=== PATIENT | female | born 1965 | race Caucasian/White ===

== ENCOUNTER 2017-12-17 14:07 | Emergency (ER) | payer OTHER ==
--- NOTE | 2017-12-17 14:36 | ERPHSYRPT ---
- History of Present Illness Time Seen by Provider: 12/17/17 14:30 Source: patient Exam Limitations: no limitations Patient Subjective Stated Complaint: pt here for headache for 2 days just progressively worse and states that her BS was low and work and her b/p was high.has taken excedrin for this Triage Nursing Assessment: pt arrived per wc crying holding head, alert, resp easy, skin w/d/p. no edema Physician History: The patient is a 52-year-old female with her complaining of a worsening headache for 2 days. Today she says it feels like "the top of my head is going to blow off". She states it is the atomic bomb of headaches. She denies numbness or tingling. Light bothers her. She is nauseated. She has occasional migraine headaches but has not had one in many years. She takes Excedrin Migraine. She does not take any other medications. She hasn't had anything to eat today except for an ice cream cone. No head trauma. Timing/Duration: day(s) (2), gradual onset, worse Quality: pressure, sharpness Head Pain Location: global Severity of Pain-Max: severe Severity of Pain-Current: severe Recent Head Trauma: occasional headaches Associated Symptoms: nausea/vomiting, sensitive to light Previous symptoms: same symptoms as today Allergies/Adverse Reactions: Sulfa (Sulfonamide Antibiotics) Allergy (Intermediate, Verified 12/17/17 14:14) Hives triamcinolone acetonide [From Kenalog] Allergy (Intermediate, Verified 12/17/17 14:14) Hives Home Medications: No Reportable Medications [No Reported Medications] 12/17/17 [History] Hx Tetanus, Diphtheria Vaccination/Date Given: No Hx Influenza Vaccination/Date Given: No Hx Pneumococcal Vaccination/Date Given: No Immunizations Up to Date: Yes - Review of Systems Constitutional: No Fever, No Chills Eyes: Photophobia Ears, Nose, & Throat: No Symptoms Respiratory: No Cough, No Dyspnea Cardiac: No Chest Pain, No Edema, No Syncope Abdominal/Gastrointestinal: Nausea Genitourinary Symptoms: No Dysuria Musculoskeletal: No Back Pain, No Neck Pain Skin: No Rash Neurological: Headache, No Focal Weakness, No Paralysis, No Parasthesia, No Sensory Changes, No Speech Changes Psychological: No Symptoms Endocrine: No Symptoms Hematologic/Lymphatic: No Symptoms Immunological/Allergic: No Symptoms All Other Systems: Reviewed and Negative - Past Medical History Pertinent Past Medical History: Yes Neurological History: Migraines ENT History: No Pertinent History Cardiac History: No Pertinent History Respiratory History: Asthma Endocrine Medical History: No Pertinent History Musculoskeletal History: No Pertinent History GI Medical History: GERD History: No Pertinent History Psycho-Social History: Anxiety, Depression Female Reproductive Disorders: No Pertinent History Other Medical History: chronic back pain - Past Surgical History Past Surgical History: Yes Neuro Surgical History: No Pertinent History Cardiac: No Pertinent History Respiratory: No Pertinent History Gastrointestinal: No Pertinent History Genitourinary: No Pertinent History Musculoskeletal: No Pertinent History Female Surgical History: Tubal Ligation Other Surgical History: tonsillectomy, adenoidectomy - Social History Smoking Status: Current every day smoker How long have you smoked: 15yrs Exposure to second hand smoke: Yes Drug Use: none Patient Lives Alone: No Significant Family History: no pertinent family hx - Female History Hx Last Menstrual Period: post Hx Now: No - Nursing Vital Signs Nursing Vital Signs: Initial Vital Signs Temperature 98.2 F 12/17/17 14:16 Pulse Rate 110 H 12/17/17 14:16 Respiratory Rate 20 12/17/17 14:16 Blood Pressure 186/147 12/17/17 14:16 O2 Sat by Pulse Oximetry 98 12/17/17 14:16 Pain Scale Pain Intensity 6 - Physical Exam General Appearance: severe distress Eye Exam: PERRL/EOMI, photophobia Ears, Nose, Throat Exam: normal ENT inspection, moist mucous membranes Neck Exam: normal inspection, supple, full range of motion, No meningismus Respiratory Exam: normal breath sounds, lungs clear Cardiovascular Exam: regular rate/rhythm, normal heart sounds Gastrointestinal/Abdominal Exam: soft, No tenderness, No distention Back Exam: normal inspection, normal range of motion Extremity Exam: normal inspection Mental Status Exam: alert, 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, 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 Exam: normal hearing, normal speech, PERRL, tongue midline, No abnormal speech, No facial asymmetry, No facial droop, No facial paresthesias, No facial weakness, No tongue deviation to R, No tongue deviation to L Motor/Sensory Exam: no motor deficit, no sensory deficit Skin Exam: normal color, warm, dry, No rash SpO2 Interpretation: normal SpO2: 98 Oxygen Delivery: Room Air - CT Exams Head CT Interpretation: Tele-radiologist Report (per Dr Castellano), No/Intracranial Hemorrhag, Other (Chiari I malformation) Ordered Tests: Active Orders 24 hr Category Date Time Status ACCUCHECK [Accucheck] STAT Care 12/17/17 14:27 Active Clean Catch Urine Specimen STAT Care 12/17/17 14:15 Active IV Insertion STAT Care 12/17/17 14:27 Active HEAD WITHOUT CONTRAST [CT] Stat Exams 12/17/17 14:42 Taken Medication Summary Discontinued Medications Generic Name Dose Route Start Last Admin Trade Name Lesli PRN Reason Stop Dose Admin Sodium Chloride 1,000 mls @ 999 mls/hr 12/17/17 14:42 12/17/17 14:50 Sodium Chloride 0.9% 1000 Ml IV 12/17/17 15:42 999 mls/hr .Q1H1M STA Administration Sodium Chloride Confirm 12/17/17 14:45 Sodium Chloride 0.9% 1000 Ml Administered 12/17/17 14:46 Dose 1,000 mls @ ud .ROUTE .STK-MED ONE Ketorolac Tromethamine 30 mg 12/17/17 14:41 12/17/17 14:50 Toradol 30 Mg Injection IV 12/17/17 14:42 30 mg STAT ONE Administration Ketorolac Tromethamine Confirm 12/17/17 14:45 Toradol 30 Mg Injection Administered 12/17/17 14:46 Dose 30 mg .ROUTE .STK-MED ONE Promethazine HCl 25 mg 12/17/17 14:41 12/17/17 14:50 Phenergan 25 Mg Inj IV 12/17/17 14:42 25 mg STAT ONE Administration Promethazine HCl Confirm 12/17/17 14:45 Phenergan 25 Mg Inj Administered 12/17/17 14:46 Dose 25 mg .ROUTE .STK-MED ONE - Progress Progress: improved Progress Note: 12/17/17 16:01 PLt feels better after toradol 30 mg and phenergan 25 mg and fluids by IV. Counseled pt/family regarding: diagnosis, need for follow-up, rad results - Departure Time of Disposition: 16:08 Departure Disposition: Home Clinical Impression: Headache, Chiari I malformation Condition: Stable Critical Care Time: No Additional Instructions: You have a headache that we treated with Toradol 30 mg, Phenergan 25 mg, and fluids by IV in the ER. You also have a Chiari I malformation that is was identified on the head CT. This is a condition you've had since you was born. You should have this further evaluated. Please follow-up with your primary medical doctor for further evaluation.
[2017-12-17] MEDS ORDERED: TORAdol 30 mg Injection IV ONE (14:41)
[2017-12-17] MEDS ORDERED: Phenergan 25 MG INJ IV ONE (14:41)
[2017-12-17] MEDS ORDERED: Sodium Chloride 0.9% 1000 ML 1,000 ML IV STA (14:42)
[2017-12-17] MEDS ORDERED: Sodium Chloride 0.9% 1000 ML 1,000 ML ONE (14:45)
[2017-12-17] MEDS ORDERED: Phenergan 25 MG INJ ONE (14:45)
[2017-12-17] MEDS ORDERED: TORAdol 30 mg Injection ONE (14:45)
[2017-12-17 15:13] VITALS: PULSE 84
[2017-12-17 15:39] VITALS: BP 125/80
[2017-12-17 16:09] VITALS: O2SAT 98
--- NOTE | 2017-12-17 19:42 | XRAY ---
Indication: Headache. History of migraines. Multiple contiguous axial images obtained through the head without contrast. Comparison: None Ventriculosulcal pattern appears symmetric. No acute intracranial hemorrhage, abnormal extra-axial fluid collection, or mass effect. Fourth ventricle is midline without hydrocephalus. Garcia-white matter differentiation preserved. Low-lying cerebellar tonsils. Near complete opacification of the left maxillary sinus. Mastoid air cells are clear. Impression: Left maxillary sinus disease and low-lying cerebellar tonsils. No acute intracranial abnormalities. Comment: Preliminary interpretation was made by [facility]. No critical discrepancy. CTDI 69.52
== END 2017-12-17 16:18 | disposition home or self-care (01) ==
LOC: ED 14:07
DX: R51 Headache (principal); R11.2 Nausea with vomiting, unspecified; G93.5 Compression of brain
CPT/HCPCS: 36000; 70450; 82962; 96360; 96374; 96375; 99284; J1885; J2550

== ENCOUNTER 2018-10-07 21:05 | Emergency (ER) | payer OTHER ==
[2018-10-07 21:22] VITALS: O2SAT 98
[2018-10-07] MEDS ORDERED: Sodium Chloride 0.9% 1000 ML 1,000 ML IV STA (22:12)
[2018-10-07] MEDS ORDERED: TORAdol 30 mg Injection IV ONE (22:12)
[2018-10-07] MEDS ORDERED: Phenergan 25 MG INJ IM ONE (22:12)
[2018-10-07] MEDS ORDERED: TORAdol 30 mg Injection ONE (22:27)
[2018-10-07] MEDS ORDERED: Phenergan 25 MG INJ ONE (22:27)
[2018-10-07] MEDS ORDERED: Sodium Chloride 0.9% 1000 ML 1,000 ML ONE (22:27)
--- NOTE | 2018-10-07 22:42 | ERPHSYRPT ---
- History of Present Illness Time Seen by Provider: 10/07/18 22:13 Source: patient Exam Limitations: no limitations Patient Subjective Stated Complaint: pt reports headache with nausea for 2 days , states it got better today and she was able to work but the pain has returned tonight and became severe. pt reports history of migraine but reports she does not take any daily prophylatic migraine medications. Triage Nursing Assessment: pt is aox3, pupils perrl, speech is clear, answers questions appropriately, resps easy and non labored, radial pulses strong and equal, cap refill < 3 seconds, no edema appreciated. pain localized to the right occipital region with radiation to the right frontal area. pt noted to be sensitive to light at this time. Physician History: 53-year-old white female with history of migraines, asthma, anxiety, depression , chronic back pain. Patient arrives with complaint of frontal headache nausea, photophobia symptoms for 2 days she denies any fevers. Past medical history includes migraines, asthma, anxiety, depression, chronic back pain. Past surgical history includes tubal ligation, tonsillectomy adenoidectomy Timing/Duration: day(s) (2 days) Severity: moderate Modifying Factors: Improves With: nothing. Worsens With: other Associated Symptoms: nausea, headaches, No vomiting, No abdominal pain, No shortness of breath, No heartburn, No diaphoresis, No cough, No chills, No chest pain, No fever, No loss of appetite, No malaise, No rash, No syncope, No seizure, No weakness Allergies/Adverse Reactions: Sulfa (Sulfonamide Antibiotics) Allergy (Intermediate, Verified 10/07/18 21:22) Hives triamcinolone acetonide [From Kenalog] Allergy (Intermediate, Verified 10/07/18 21:22) Hives Home Medications: Hydrocodone/Acetaminophen [Hydrocodone-Acetamin 10-325 mg] 1 each PO BID [History] Hx Tetanus, Diphtheria Vaccination/Date Given: (unk) Hx Influenza Vaccination/Date Given: No Hx Pneumococcal Vaccination/Date Given: No Immunizations Up to Date: Yes - Review of Systems Constitutional: No Fever, No Chills Eyes: Photophobia, No Discharge, No Eye Pain, No Eye Redness, No Itchy, No Tearing, No Vision Changes, No Double Vision, No Foreign Body Sensation Ears, Nose, & Throat: No Symptoms Respiratory: No Cough, No Dyspnea Cardiac: No Chest Pain, No Edema, No Syncope Abdominal/Gastrointestinal: Nausea, No Abdominal Pain, No Vomiting, No Diarrhea Genitourinary Symptoms: No Dysuria Musculoskeletal: No Back Pain, No Neck Pain Skin: No Rash Neurological: Headache, No Dizziness, No Focal Weakness, No Gait Changes, No Irritability, No Lethargy, No Paralysis, No Parasthesia, No Seizure, No Sensory Changes, No Speech Changes, No Tics, No Tremors, No Vertigo Psychological: No Symptoms Endocrine: No Symptoms All Other Systems: Reviewed and Negative - Past Medical History Pertinent Past Medical History: Yes Neurological History: Migraines ENT History: No Pertinent History Cardiac History: No Pertinent History Respiratory History: Asthma Endocrine Medical History: No Pertinent History Musculoskeletal History: No Pertinent History GI Medical History: GERD History: No Pertinent History Psycho-Social History: Anxiety, Depression Female Reproductive Disorders: No Pertinent History Other Medical History: chronic back pain - Past Surgical History Past Surgical History: Yes Neuro Surgical History: No Pertinent History Cardiac: No Pertinent History Respiratory: No Pertinent History Gastrointestinal: No Pertinent History Genitourinary: No Pertinent History Musculoskeletal: No Pertinent History Female Surgical History: Tubal Ligation Other Surgical History: tonsillectomy, adenoidectomy - Social History Smoking Status: Current every day smoker How long have you smoked: 15yrs Exposure to second hand smoke: Yes Drug Use: none Patient Lives Alone: No Significant Family History: no pertinent family hx - Female History Hx Now: No - Nursing Vital Signs Nursing Vital Signs: Initial Vital Signs Temperature 98.3 F 10/07/18 21:11 Pulse Rate 90 10/07/18 21:11 Respiratory Rate 20 10/07/18 21:11 Blood Pressure 159/101 10/07/18 21:11 O2 Sat by Pulse Oximetry 98 10/07/18 21:11 Pain Scale Pain Intensity 6 - Physical Exam General Appearance: mild distress, alert Eye Exam: PERRL/EOMI, eyes nml inspection Ears, Nose, Throat Exam: normal ENT inspection, TMs normal, pharynx normal, moist mucous membranes Neck Exam: normal inspection, non-tender, supple, full range of motion Respiratory Exam: normal breath sounds, lungs clear, No respiratory distress Cardiovascular Exam: regular rate/rhythm, normal heart sounds, normal peripheral pulses, capillary refill <2 sec Gastrointestinal/Abdomen Exam: soft, normal bowel sounds, No tenderness, No mass Back Exam: normal inspection, normal range of motion, No CVA tenderness, No vertebral tenderness Extremity Exam: normal inspection, normal range of motion, pelvis stable Neurologic Exam: alert, 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, cooperative, fur stylist II-XII nml as tested, normal mood/affect, nml cerebellar function, nml station & gait, sensation nml, No motor deficits Skin Exam: normal color, warm, dry, No rash SpO2 Interpretation: normal (98%) SpO2: 98 Ordered Tests: Active Orders 24 hr Category Date Time Status IV Insertion STAT Care 10/07/18 22:12 Active Medication Summary Discontinued Medications Generic Name Dose Route Start Last Admin Trade Name Freq PRN Reason Stop Dose Admin Sodium Chloride 1,000 mls @ 999 mls/hr 10/07/18 22:12 10/07/18 22:33 Sodium Chloride 0.9% 1000 Ml IV 10/07/18 23:12 999 mls/hr .Q1H1M STA Administration Sodium Chloride Confirm 10/07/18 22:27 Sodium Chloride 0.9% 1000 Ml Administered 10/07/18 22:28 Dose 1,000 mls @ ud .ROUTE .STK-MED ONE Ketorolac Tromethamine 30 mg 10/07/18 22:12 10/07/18 22:33 Toradol 30 Mg Injection IV 10/07/18 22:13 30 mg STAT ONE Administration Ketorolac Tromethamine Confirm 10/07/18 22:27 Toradol 30 Mg Injection Administered 10/07/18 22:28 Dose 30 mg .ROUTE .STK-MED ONE Morphine Sulfate Confirm 10/07/18 23:04 Morphine Sulfate 4 Mg Inj Administered 10/07/18 23:05 Dose 4 mg .ROUTE .STK-MED ONE Morphine Sulfate 4 mg 10/07/18 23:05 10/07/18 23:06 Morphine Sulfate 4 Mg Inj IV 10/07/18 23:06 4 mg STAT ONE Administration Promethazine HCl 25 mg 10/07/18 22:12 10/07/18 22:33 Phenergan 25 Mg Inj IM 10/07/18 22:13 25 mg STAT ONE Administration Promethazine HCl Confirm 10/07/18 22:27 Phenergan 25 Mg Inj Administered 10/07/18 22:28 Dose 25 mg .ROUTE .STK-MED ONE - Progress Progress: improved Progress Note: 10/07/18 23:00 Patient improved after Toradol, normal saline 1 L, Phenergan not completely pain -free. Will give patient 4 mg IV. Plan home. Rest dark quiet room. 10/07/18 23:35 Patient feeling markedly improved. - Departure Departure Disposition: Home Clinical Impression: Migraine headache Qualifiers: Migraine type: unspecified Status migrainosus presence: without status migrainosus Intractability: not intractable Qualified Code(s): G43.909 - Migraine, unspecified, not intractable, without status migrainosus Condition: Fair Critical Care Time: No Referrals: VIVI JOHNSON NP [Primary Care Provider] - Additional Instructions: Return home. Dark quiet room. Followup with your family DrBrianna if symptoms recurrent. Return for acute distress or for severe symptoms.
[2018-10-07] MEDS ORDERED: MORPHINE SULFATE 4 MG INJ ONE (23:04)
[2018-10-07] MEDS ORDERED: MORPHINE SULFATE 4 MG INJ IV ONE (23:05)
[2018-10-07 23:42] VITALS: BP 130/75; PULSE 83
== END 2018-10-07 23:43 | disposition home or self-care (01) ==
LOC: ED 21:05
DX: G43.909 Migraine, unspecified, not intractable, without status migrainosus (principal)
CPT/HCPCS: 36000; 96360; 96372; 96374; 96375; 99284; J1885; J2270; J2550

== ENCOUNTER 2018-11-19 12:44 | Emergency (ER) | payer OTHER ==
--- NOTE | 2018-11-19 13:28 | ERPHSYRPT ---
- History of Present Illness Time Seen by Provider: 11/19/18 13:15 Exam Limitations: no limitations Patient Subjective Stated Complaint: states has chronic back pain and last night was playing with granddaughter and she fell onto patient's back. now having increased pain with movement. took pain med this am but states is not helping. Triage Nursing Assessment: ambulated to room holding lower back. tenderness to back. states pain goes down both legs. cervantes without difficulty. Physician History: Patient described to me concerns for a migraine flare-up that began on the left side this morning prior to coming into the emergency department on 11/19/2018. Patient told nursing she has pain in her lower back. Timing/Duration: today Quality: throbbing Head Pain Location: frontal, temporal Severity of Pain-Max: severe Severity of Pain-Current: severe Recent Head Trauma: frequent headaches, chronic headaches Modifying Factors: Improves With: exposure to light (worsens), noise (worsens). Worsens With: immobilization, medication, movement Associated Symptoms: other (low back pain after bending and lifting her grandchild and her grandchild falling on her back on 11/18/2018), No confusion, No dizziness, No fatigue, No facial pain, No fever/chills, No flushing, No light -headedness, No loss of consciousness, No nausea/vomiting, No nasal congestion, No nasal drainage, No neck pain, No numbness in legs/feet, No rash, No sweating , No scotoma, No seizures, No sinus infection, No sensitive to light, No speech problems, No stiff neck, No trouble walking, No vision changes, No visual disturbance, No weakness Previous symptoms: same symptoms as today, no recent treatment (no history of epidural injections) Allergies/Adverse Reactions: Sulfa (Sulfonamide Antibiotics) Allergy (Intermediate, Verified 11/19/18 13:09) Hives triamcinolone acetonide [From Kenalog] Allergy (Intermediate, Verified 11/19/18 13:09) Hives Home Medications: Hydrocodone/Acetaminophen [Hydrocodone-Acetamin 10-325 mg] 1 each PO BID [History] Hx Tetanus, Diphtheria Vaccination/Date Given: No (unk) Hx Influenza Vaccination/Date Given: No Hx Pneumococcal Vaccination/Date Given: No - Review of Systems Constitutional: No Fever, No Chills, No Lethargy Eyes: Photophobia, No Eye Pain, No Vision Changes, No Double Vision Ears, Nose, & Throat: No Nose Congestion, No Nose Discharge, No Epistaxis, No Mouth Swelling, No Throat Swelling, No Hoarse Respiratory: No Cough, No Dyspnea Cardiac: No Chest Pain, No Edema, No Syncope Abdominal/Gastrointestinal: No Abdominal Pain, No Nausea, No Vomiting, No Diarrhea Genitourinary Symptoms: No Dysuria, No Hematuria, No Flank Pain Musculoskeletal: Back Pain, No Neck Pain Skin: No Rash Neurological: Headache, No Dizziness, No Focal Weakness, No Parasthesia, No Sensory Changes (bilateral radicular symptoms down both legs), No Tremors Psychological: No Symptoms Endocrine: No Polyuria, No Polydipsia Hematologic/Lymphatic: No Easy Bleeding, No Easy Bruising All Other Systems: Reviewed and Negative - Past Medical History Pertinent Past Medical History: Yes Neurological History: Migraines ENT History: No Pertinent History Cardiac History: No Pertinent History Respiratory History: Asthma Endocrine Medical History: No Pertinent History Musculoskeletal History: No Pertinent History GI Medical History: GERD History: No Pertinent History Psycho-Social History: Anxiety, Depression Female Reproductive Disorders: No Pertinent History Other Medical History: chronic back pain - Past Surgical History Past Surgical History: Yes Neuro Surgical History: No Pertinent History Cardiac: No Pertinent History Respiratory: No Pertinent History Gastrointestinal: No Pertinent History Genitourinary: No Pertinent History Musculoskeletal: No Pertinent History Female Surgical History: Tubal Ligation Other Surgical History: tonsillectomy, adenoidectomy - Social History Smoking Status: Current every day smoker How long have you smoked: 36 Exposure to second hand smoke: Yes Drug Use: none Patient Lives Alone: No Significant Family History: no pertinent family hx - Female History Hx Now: No - Nursing Vital Signs Nursing Vital Signs: Initial Vital Signs Temperature 98.6 F 11/19/18 13:01 Pulse Rate 109 H 11/19/18 13:01 Respiratory Rate 16 11/19/18 13:01 Blood Pressure 137/103 11/19/18 13:01 O2 Sat by Pulse Oximetry 97 11/19/18 13:01 Pain Scale Pain Intensity [] 9 Pain Intensity 5 - Physical Exam General Appearance: no apparent distress Eye Exam: PERRL/EOMI, eyes nml inspection, photophobia, No scleral icterus, No post op pupil defect (L), No post op pupil defect (R) Ears, Nose, Throat Exam: normal ENT inspection, moist mucous membranes Neck Exam: normal inspection, supple, full range of motion, No meningismus Respiratory Exam: normal breath sounds, lungs clear Cardiovascular Exam: regular rate/rhythm, normal heart sounds Gastrointestinal/Abdominal Exam: soft, No tenderness, No distention Back Exam: normal inspection, normal range of motion, No CVA tenderness, No vertebral tenderness, No muscle spasm, No point tenderness Extremity Exam: normal inspection, normal range of motion, pelvis stable Mental Status Exam: alert, 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, 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 Exam: normal speech, PERRL, tongue midline, No abnormal eye position, No facial asymmetry, No facial droop, No facial paresthesias, No tongue deviation to L Coordination/Gait Exam: normal cerebellar function Motor/Sensory Exam: no motor deficit, no sensory deficit, No sensory deficit, No weak motor strength RUE, No weak motor strength LUE, No weak motor strength RLE, No weak motor strength LLE Skin Exam: normal color, warm, dry, No rash, No jaundice, No cyanosis Lymphatic Exam: No adenopathy SpO2 Interpretation: normal SpO2: 97 O2 Delivery: Room Air - Course Nursing assessment & vital signs reviewed: Yes - CT Exams Lumbar Spine CT Interpretation: Tele-radiologist Report, No Fracture, Other (per radiologist' s interpretation:l anatomic. This and plate of L3 similar to prior MD study has a concave appearance, which is indicative of unchanged compression deformities. No addition, the L4 biconcave the past, which has been stable since prior examination. In addition, there are subtle sclerotic diffuse changes in the inferior aspect L4 vertebral body. Small in moderate hospital seen L3-L5. There is evidence of moderate to severe narrowing of the right side of all 4 L5 disc, unchanged since prior examination from 08/16/2018. Similar to the prior study there is unchanged left paracentral protrusion, associated with hypertrophy of the ligamentum problem at delta L3 level, resulting in moderate to severe central spinal stenosis. Persistent moderate stenosis seen at the L3-L4 level. The bones are demineralized. atherosclerotic calcifications are present distal aspect of the abdominal aorta. Soft tissues are unremarkable. Overall impression: No acute findings. Persistent mild compression deformity of L3. Persistent mild to moderate compression deformity of L4. Osteopenia. Degenerative disc and spinal disease with persistent moderate to severe central spinal stenosis seen at L2-L3 level which is better paragraph prior lumbar spine MRI from 08/25/2018. Aortic atherosclerotic disease.) Ordered Tests: Active Orders 24 hr Category Date Time Status IV Insertion STAT Care 11/19/18 13:32 Active LUMBAR SPINE W/O [CT] Stat Exams 11/19/18 14:21 Taken Medication Summary Discontinued Medications Generic Name Dose Route Start Last Admin Trade Name Lesli PRN Reason Stop Dose Admin Acetaminophen 975 mg 11/19/18 13:32 11/19/18 15:00 Tylenol 325 Mg PO 11/19/18 13:33 975 mg STAT ONE Administration Acetaminophen Confirm 11/19/18 14:38 Tylenol 325 Mg Administered 11/19/18 14:39 Dose 975 mg .ROUTE .STK-MED ONE Diphenhydramine HCl 50 mg 11/19/18 13:32 11/19/18 15:00 Benadryl 50 Mg/Ml IV 11/19/18 13:33 50 mg STAT ONE Administration Diphenhydramine HCl Confirm 11/19/18 14:37 Benadryl 50 Mg/Ml Administered 11/19/18 14:38 Dose 50 mg .ROUTE .STK-MED ONE Fentanyl Citrate 50 mcg 11/19/18 13:31 11/19/18 14:56 Sublimaze 100 Mcg/2 Ml IV 11/19/18 13:32 50 mcg STAT ONE Administration Fentanyl Citrate Confirm 11/19/18 14:38 Sublimaze 100 Mcg/2 Ml Administered 11/19/18 14:39 Dose 100 mcg .ROUTE .STK-MED ONE Sodium Chloride 1,000 mls @ 999 mls/hr 11/19/18 13:32 11/19/18 14:55 Sodium Chloride 0.9% 1000 Ml IV 11/19/18 14:32 999 mls/hr .Q1H1M STA Administration Sodium Chloride Confirm 11/19/18 14:38 Sodium Chloride 0.9% 1000 Ml Administered 11/19/18 14:39 Dose 1,000 mls @ ud .ROUTE .STK-MED ONE Methylprednisolone Sodium Succinate 125 mg 11/19/18 13:29 11/19/18 15:04 Solu-Medrol 125 Mg IV 11/19/18 13:30 125 mg STAT ONE Administration Methylprednisolone Sodium Succinate Confirm 11/19/18 14:38 Solu-Medrol 125 Mg Administered 11/19/18 14:39 Dose 125 mg .ROUTE .STK-MED ONE Metoclopramide HCl 10 mg 11/19/18 13:29 11/19/18 14:55 Reglan 10 Mg/2 Ml IV 11/19/18 13:30 10 mg STAT ONE Administration Metoclopramide HCl Confirm 11/19/18 14:38 Reglan 10 Mg/2 Ml Administered 11/19/18 14:39 Dose 10 mg .ROUTE .STK-MED ONE Ondansetron HCl 4 mg 11/19/18 13:32 11/19/18 14:59 Zofran 4 Mg/2 Ml Vial IV 11/19/18 13:33 4 mg STAT ONE Administration Ondansetron HCl Confirm 11/19/18 14:37 Zofran 4 Mg/2 Ml Vial Administered 11/19/18 14:38 Dose 4 mg .ROUTE .STK-MED ONE - Progress Progress: improved, re-examined Air Movement: good Progress Note: 11/19/18 15:46 Yoselyn Espinoza RN chaperoned examination. Patient had normal sphincter tone and anal wink on examination. Patient's headache has resolved and back pain has improved. Patient has no focal neurologic deficits on repeat examination and is neurovascularly intact in the lower extremities bilaterally with no deficits appreciated. 11/19/18 15:52 The patient had no focal neurologic deficits with a normal sphincter tone, although complaining of bilateral radicular symptoms, and with an unchanged CT scan from previous MRI showing that she had moderate spinal stenosis but no obvious cord compression, patient will be discharged home to follow up as an outpatient to continue taking her home [place] and I will give her a course of a Medrol Dosepak to help with her pain and symptoms. Blood Culture(s) Obtained: No Antibiotics given: No Counseled pt/family regarding: diagnosis, need for follow-up, rad results - Departure Departure Disposition: Home Clinical Impression: Acute exacerbation of chronic low back pain, Lumbar radicular pain Headache Qualifiers: Headache type: unspecified Headache chronicity pattern: acute headache Intractability: not intractable Qualified Code(s): R51 - Headache Lumbar spinal stenosis Qualifiers: Neurogenic claudication status: without neurogenic claudication Qualified Code( s): M48.061 - Spinal stenosis, lumbar region without neurogenic claudication Condition: Good Critical Care Time: No Referrals: VIVI JOHNSON [employer] TUTOR [Primary Care Provider] - 11/20/18 Instructions: Low Back Pain (DC), Sciatica (DC), Headache, Adult (DC) Additional Instructions: Return immediately back to the emergency room for any new fevers, numbness upon the area he said upon, weakness in the lower extremities, loss of sensation of lower extremities, urinary retention, diarrhea you cannot control, or continued bilateral leg symptoms at any time or any other signs or symptoms that were not present in the emergency room visit today that are concerning for immediate reevaluation in the emergency department. Prescriptions: Methylprednisolone Packet [Medrol Dosepack] 4 mg PO UD #1 packet
[2018-11-19] MEDS ORDERED: Reglan 10 MG/2 ML IV ONE (13:29)
[2018-11-19] MEDS ORDERED: solu-MEDROL 125 MG IV ONE (13:29)
[2018-11-19] MEDS ORDERED: SUBLIMAZE 100 MCG/2 ML IV ONE (13:31)
[2018-11-19] MEDS ORDERED: BENADRYL 50 MG/ML IV ONE (13:32)
[2018-11-19] MEDS ORDERED: Sodium Chloride 0.9% 1000 ML 1,000 ML IV STA (13:32)
[2018-11-19] MEDS ORDERED: Zofran 4 MG/2 ML VIAL IV ONE (13:32)
[2018-11-19] MEDS ORDERED: TYLENOL 325 MG PO ONE (13:32)
[2018-11-19] MEDS ORDERED: Zofran 4 MG/2 ML VIAL ONE (14:37)
[2018-11-19] MEDS ORDERED: BENADRYL 50 MG/ML ONE (14:37)
[2018-11-19] MEDS ORDERED: solu-MEDROL 125 MG ONE (14:38)
[2018-11-19] MEDS ORDERED: SUBLIMAZE 100 MCG/2 ML ONE (14:38)
[2018-11-19] MEDS ORDERED: TYLENOL 325 MG ONE (14:38)
[2018-11-19] MEDS ORDERED: Reglan 10 MG/2 ML ONE (14:38)
[2018-11-19] MEDS ORDERED: Sodium Chloride 0.9% 1000 ML 1,000 ML ONE (14:38)
[2018-11-19 16:08] VITALS: BP 124/74; PULSE 82; O2SAT 100
--- NOTE | 2018-11-19 20:53 | XRAY ---
Indication: Low back pain radiating down both legs. Multiple contiguous axial images obtained through the lumbar spine. Two-dimensional sagittal and coronal reformatted images obtained. Comparison: MRI lumbar spine August 25, 2018. Axial images demonstrate stable L2-L3 spinal canal and bilateral foraminal stenosis due to broad-based disc bulge and central disc herniation. Stable L3-L5 broad-based disc bulge and bilateral foraminal stenosis. Stable L3 and L4 endplate concave deformities including MRI proven L4 inferior endplate fracture. No acute fracture or suspicious bony lesions. Sagittal and coronal reformatted images demonstrates normal lumbar alignment with minimal L2-L5 disc space narrowing. No acute compression fracture or subluxation. Visualized noncontrasted soft tissues demonstrates mild aortoiliac calcifications. Impression: Stable multilevel degenerative disc disease and stable L3/L4 endplate concave deformities. No new or acute findings. Comment: Preliminary interpretation was made by [facility]. No critical discrepancy. CTDI 66.86
== END 2018-11-19 16:10 | disposition home or self-care (01) ==
LOC: ED 12:44
DX: M54.5 Low back pain (principal); G89.29 Other chronic pain; M48.061 Spinal stenosis, lumbar region without neurogenic claudication; R51 Headache
CPT/HCPCS: 36000; 72131; 96360; 96374; 96375; 99284; J1200; J2405; J2930; J3010; A9270-GY

== ENCOUNTER 2018-12-15 03:51 | Emergency (ER) | payer OTHER ==
--- NOTE | 2018-12-15 03:56 | ERPHSYRPT ---
- History of Present Illness Time Seen by Provider: 12/15/18 03:55 Source: patient Exam Limitations: no limitations Physician History: cough with sputum and shortness of breath since yesterday. Also his lumbar sore throat. And mild chest pain. Timing/Duration: yesterday Activities at Onset: rest Severity of Dyspnea-Max: moderate Severity of Dyspnea-Current: moderate Possible Cause: occasional episodes Modifying Factors: Improves With: albuterol inhaler, coughing, deep breath Associated Symptoms: intermittent, chest pain/discomfort, fever, wheezing, No edema, No insomnia, No loss of appetite, No lightheadedness, No weakness, No ankle swelling, No chills, No hemoptysis, No calf pain, No dizziness, No heaviness, No heart racing, No lightheadedness, No leg swelling, No muscle spasms feet, No muscle spasms hands, No painful breathing International travel in last 2 weeks: No Allergies/Adverse Reactions: Sulfa (Sulfonamide Antibiotics) Allergy (Intermediate, Verified 11/19/18 13:09) Hives triamcinolone acetonide [From Kenalog] Allergy (Intermediate, Verified 11/19/18 13:09) Hives Home Medications: Hydrocodone/Acetaminophen [Hydrocodone-Acetamin 10-325 mg] 1 each PO BID [History] Hx Tetanus, Diphtheria Vaccination/Date Given: No (unk) Hx Influenza Vaccination/Date Given: No Hx Pneumococcal Vaccination/Date Given: No - Review of Systems Constitutional: No Fever, No Chills Eyes: No Symptoms Ears, Nose, & Throat: No Symptoms Respiratory: Wheezing, No Cough, No Dyspnea Cardiac: No Chest Pain, No Edema, No Syncope Abdominal/Gastrointestinal: No Abdominal Pain, No Nausea, No Vomiting, No Diarrhea Genitourinary Symptoms: No Dysuria Musculoskeletal: No Back Pain, No Neck Pain Skin: No Rash Neurological: No Dizziness, No Focal Weakness, No Sensory Changes Psychological: No Symptoms Endocrine: No Symptoms All Other Systems: Reviewed and Negative - Past Medical History Pertinent Past Medical History: Yes Neurological History: Migraines ENT History: No Pertinent History Cardiac History: No Pertinent History Respiratory History: Asthma Endocrine Medical History: No Pertinent History Musculoskeletal History: No Pertinent History GI Medical History: GERD History: No Pertinent History Psycho-Social History: Anxiety, Depression Female Reproductive Disorders: No Pertinent History Other Medical History: chronic back pain - Past Surgical History Past Surgical History: Yes Neuro Surgical History: No Pertinent History Cardiac: No Pertinent History Respiratory: No Pertinent History Gastrointestinal: No Pertinent History Genitourinary: No Pertinent History Musculoskeletal: No Pertinent History Female Surgical History: Tubal Ligation Other Surgical History: tonsillectomy, adenoidectomy - Social History Smoking Status: Current every day smoker How long have you smoked: 36 Exposure to second hand smoke: Yes Drug Use: none Patient Lives Alone: No Significant Family History: no pertinent family hx - Nursing Vital Signs Nursing Vital Signs: Initial Vital Signs Temperature 97.5 F 12/15/18 03:53 Pulse Rate 105 H 12/15/18 03:53 Respiratory Rate 22 12/15/18 03:53 Blood Pressure 139/95 12/15/18 03:53 O2 Sat by Pulse Oximetry 96 12/15/18 03:53 Pain Scale Pain Intensity 7 - Physical Exam General Appearance: no apparent distress, alert Eye Exam: PERRL/EOMI Neck Exam: normal inspection, non-tender, supple Respiratory Exam: normal breath sounds, lungs clear, airway intact, prolonged expirations, No chest tenderness, No diminished breath sounds Cardiovascular/Chest Exam: normal heart sounds, regular rate/rhythm, normal peripheral pulses, No edema, No JVD Abdominal/Gastrointestinal Exam: soft, No tenderness, No distention, No mass Extremity Exam: non-tender, normal range of motion, normal inspection, no calf tenderness, no pedal edema Neurologic Exam: alert, 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, 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, 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, sensation nml, No motor deficits Skin Exam: normal color, warm, No dry SpO2 Interpretation: normal O2 Delivery: Room Air - Course EKG Interpreted by Me: RATE, Sinus Rhythm, NORMAL AXIS, NORMAL INTERVALS, NORMAL QRS, Non-specific ST Changes - Radiology Exams Chest X-ray Interpretation: Reviewed by me, Negative Ordered Tests: Active Orders 24 hr Category Date Time Status Behavioral Health Care Coordinator STAT Care 12/15/18 04:01 Active EKG-ER Only STAT Care 12/15/18 04:00 Active IV Insertion STAT Care 12/15/18 04:00 Active Oxygen-ED Only Nasal Cannula 2 lpm Care 12/15/18 04:00 Active CHEST 1 VIEW (PORTABLE) Stat Exams 12/15/18 04:42 Taken BLOOD CULTURE Stat Lab 12/15/18 04:32 Received CBC W DIFF Stat Lab 12/15/18 04:04 Completed CMP Stat Lab 12/15/18 04:04 Completed D-DIMER QUANTITATION Stat Lab 12/15/18 04:04 Completed Lactic Acid Stat Lab 12/15/18 04:28 Completed NT PRO BNP Stat Lab 12/15/18 04:04 Completed TROPONIN Stat Lab 12/15/18 04:04 Completed Peak Expiratory Flow Rate ONCE RT 12/15/18 04:12 Active Respiratory Therapy Assessment DAILY RT 12/15/18 04:11 Active Medication Summary Discontinued Medications Generic Name Dose Route Start Last Admin Trade Name Freq PRN Reason Stop Dose Admin Albuterol/Ipratropium 3 ml 12/15/18 04:02 Duoneb 0.5-3 Mg/3 Ml Neb IH 12/15/18 04:03 STAT ONE Albuterol/Ipratropium Confirm 12/15/18 04:08 Duoneb 0.5-3 Mg/3 Ml Neb Administered 12/15/18 04:09 Dose 3 ml IH .STK-MED ONE Aspirin 324 mg 12/15/18 04:00 12/15/18 04:09 Baby Aspirin 81 Mg Chew PO 12/15/18 04:01 324 mg STAT ONE Administration Aspirin Confirm 12/15/18 04:45 Baby Aspirin 81 Mg Chew Administered 12/15/18 04:46 Dose 324 mg .ROUTE .STK-MED ONE Azithromycin 500 mg 12/15/18 04:03 12/15/18 04:12 Zithromax 250 Mg Tablet PO 12/15/18 04:04 500 mg STAT ONE Administration Azithromycin Confirm 12/15/18 04:11 Zithromax 250 Mg Tablet Administered 12/15/18 04:12 Dose 250 mg .ROUTE .STK-MED ONE Azithromycin Confirm 12/15/18 04:13 Zithromax 250 Mg Tablet Administered 12/15/18 04:14 Dose 250 mg .ROUTE .STK-MED ONE Ceftriaxone Sodium/Dextrose 1 g in 50 mls @ 100 mls/hr 12/15/18 04:02 04:12 Rocephin 1 Gm-D5w 50 Ml Bag IV 12/15/18 04:31 100 mls/hr STAT STA 100 mls/hr Administration Ceftriaxone Sodium/Dextrose Confirm 12/15/18 04:11 Rocephin 1 Gm-D5w 50 Ml Bag Administered 12/15/18 04:12 Dose 1 g in 50 mls @ ud IV .STK-MED ONE Lab/Rad Data: Laboratory Result Diagrams 12/15/18 04:04 12/15/18 04:04 Laboratory Results 12/15/18 12/15/18 12/15/18 Range/Units 04:32 04:28 04:04 WBC (4.0-10.5) K/mm3 RBC (4.1-5.4) M/mm3 Hgb (12.0-16.0) gm/dl Hct (35-47) % MCV (78-100) fl MCH (26-32) pg MCHC (32-36) g/dl RDW (11.5-14.0) % Plt Count (150-450) K/mm3 MPV (6-9.5) fl Gran % (36.0-66.0) % Eos # (Auto) (0-0.5) Absolute Lymphs (auto) (1.0-4.6) Absolute Monos (auto) (0.0-1.3) Lymphocytes % (24.0-44.0) % Monocytes % (0.0-12.0) % Eosinophils % (0.00-5.0) % Basophils % (0.0-0.4) % Absolute Granulocytes (1.4-6.9) Basophils # (0-0.4) D-Dimer < 215 L (215-500) ng/mL Sodium (137-145) mmol/L Potassium (3.5-5.1) mmol/L Chloride (98-107) mmol/L Carbon Dioxide (22-30) mmol/L Anion Gap (5-15) MEQ/L BUN (7-17) mg/dL Creatinine (0.52-1.04) mg/dL Estimated GFR ML/MIN Glucose (74-106) mg/dL Lactic Acid 1.3 (0.4-2.0) Calcium (8.4-10.2) mg/dL Total Bilirubin (0.2-1.3) mg/dL AST (14-36) U/L ALT (0-35) U/L Alkaline Phosphatase (38-126) U/L Troponin I (0.000-0.034) ng/mL NT-Pro-B Natriuret Pep (0-900) pg/mL Serum Total Protein (6.3-8.2) g/dL Albumin (3.5-5.0) g/dL Influenza Type A Ag NEGATIVE (NEGATIVE) Influenza Type B Ag NEGATIVE (NEGATIVE) RSV (PCR) NEGATIVE (Negative) Group A Strep Antibody NEGATIVE (NEGATIVE) 12/15/18 12/15/18 Range/Units 04:04 04:04 WBC 5.0 (4.0-10.5) K/mm3 RBC 4.01 L (4.1-5.4) M/mm3 Hgb 13.7 (12.0-16.0) gm/dl Hct 41.1 (35-47) % MCV 102.5 H (78-100) fl MCH 34.1 H (26-32) pg MCHC 33.3 (32-36) g/dl RDW 14.3 H (11.5-14.0) % Plt Count 162 (150-450) K/mm3 MPV 11.9 H (6-9.5) fl Gran % 60.6 (36.0-66.0) % Eos # (Auto) 0.28 (0-0.5) Absolute Lymphs (auto) 1.18 (1.0-4.6) Absolute Monos (auto) 0.48 (0.0-1.3) Lymphocytes % 23.8 L (24.0-44.0) % Monocytes % 9.7 (0.0-12.0) % Eosinophils % 5.7 H (0.00-5.0) % Basophils % 0.2 (0.0-0.4) % Absolute Granulocytes 3.00 (1.4-6.9) Basophils # 0.01 (0-0.4) D-Dimer (215-500) ng/mL Sodium 143 (137-145) mmol/L Potassium 3.5 (3.5-5.1) mmol/L Chloride 109 H (98-107) mmol/L Carbon Dioxide 25 (22-30) mmol/L Anion Gap 12.9 (5-15) MEQ/L BUN 8 (7-17) mg/dL Creatinine 0.48 L (0.52-1.04) mg/dL Estimated GFR > 60.0 ML/MIN Glucose 112 H (74-106) mg/dL Lactic Acid (0.4-2.0) Calcium 9.7 (8.4-10.2) mg/dL Total Bilirubin 0.70 (0.2-1.3) mg/dL AST 17 (14-36) U/L ALT 12 (0-35) U/L Alkaline Phosphatase 77 (38-126) U/L Troponin I < 0.012 (0.000-0.034) ng/mL NT-Pro-B Natriuret Pep 39.3 (0-900) pg/mL Serum Total Protein 7.0 (6.3-8.2) g/dL Albumin 4.1 (3.5-5.0) g/dL Influenza Type A Ag (NEGATIVE) Influenza Type B Ag (NEGATIVE) RSV (PCR) (Negative) Group A Strep Antibody (NEGATIVE) - Progress Progress: improved Air Movement: good Progress Note: 12/15/18 05:17 feels a lot better. No life or limb threatening condition on discharge. Heart score negative. Blood Culture(s) Obtained: Yes Antibiotics given: Yes Counseled pt/family regarding: lab results, diagnosis, need for follow-up, rad results, smoking cessation - Departure Departure Disposition: Home Clinical Impression: Acute bronchitis Qualifiers: Bronchitis organism: unspecified organism Qualified Code(s): J20.9 - Acute bronchitis, unspecified Condition: Good Critical Care Time: No Referrals: VIVI JOHNSON [employer]ER [Primary Care Provider] - Instructions: Asthma, Adult (DC), Chronic Obstructive Pulmonary Disease Prescriptions: Azithromycin 250 mg [Zithromax 250 MG TABLET] 250 mg PO ZPACK #6 tablet Prednisone 10 mg [Deltasone 10 mg] 10 mg PO DAILY 5 Days #5 tablet
[2018-12-15] MEDS ORDERED: BABY ASPIRIN 81 MG CHEW PO ONE (04:00)
[2018-12-15] MEDS ORDERED: DUONEB 0.5-3 MG/3 ml Neb IH ONE ×2 (04:02→04:08)
[2018-12-15] MEDS ORDERED: ROCEPHIN 1 Gm-D5w 50 ml Bag** 1 G/50 ML IVPB IV STA (04:02)
[2018-12-15] MEDS ORDERED: Zithromax 250 MG TABLET PO ONE (04:03)
[2018-12-15] MEDS ORDERED: ROCEPHIN 1 Gm-D5w 50 ml Bag** 1 G/50 ML IVPB IV ONE (04:11)
[2018-12-15] MEDS ORDERED: Zithromax 250 MG TABLET ONE ×2 (04:11→04:13)
[2018-12-15 04:20] LABS: BASOPHIL % 0.2 % (0.0-0.4); Basophil (Absolute #) 0.01 (0-0.4); Eosinophil % 5.7 % (0.00-5.0); Eosinophil (Absolute #) 0.28 (0-0.5); Hematocrit 41.1 % (35-47); Hemoglobin 13.7 gm/dl (12.0-16.0); Lymphocyte (Absolute #) 1.18 (1.0-4.6); Lymphocytes % 23.8 % (24.0-44.0); Mean Cell Volume 102.5 fl (78-100); Mean Corpuscular Hgb Concent. 33.3 g/dl (32-36); Mean Platelet Volume 11.9 fl (6-9.5); Monocyte (Absolute #) 0.48 (0.0-1.3); Monocytes % 9.7 % (0.0-12.0); Neutrophil % 60.6 % (36.0-66.0); Platelet Count 162 K/mm3 (150-450); Red Blood Count 4.01 M/mm3 (4.1-5.4); Red Cell Distribution Width 14.3 % (11.5-14.0)
[2018-12-15 04:21] LABS: Mean Corpuscular Hemoglobin 34.1 pg (26-32)
[2018-12-15 04:32] LABS: ALBUMIN 4.1 g/dL (3.5-5.0); ALKALINE PHOSPHATASE 77 U/L (38-126); ANION GAP 12.9 MEQ/L (5-15); BLOOD UREA NITROGEN 8 mg/dL (7-17); CHLORIDE 109 mmol/L (98-107); Calcium 9.7 mg/dL (8.4-10.2); Carbon Dioxide 25 mmol/L (22-30); Creatinine 1 0.48 mg/dL (0.52-1.04); Glucose 112 mg/dL (74-106); NT PRO BNP 39.3 pg/mL (0-900); Potassium 3.5 mmol/L (3.5-5.1); SGOT/AST 17 U/L (14-36); SGPT/ALT 12 U/L (0-35); SODIUM 143 mmol/L (137-145); TROPONIN < 0.012 ng/mL (0.000-0.034)
[2018-12-15] MEDS ORDERED: BABY ASPIRIN 81 MG CHEW ONE (04:45)
[2018-12-15 05:08] LABS: Group A Strep NEGATIVE (NEGATIVE)
[2018-12-15 05:09] VITALS: BP 123/90; PULSE 76
[2018-12-15 05:09] LABS: INFLUENZA A NEGATIVE (NEGATIVE); INFLUENZA B NEGATIVE (NEGATIVE); RESPIRATORY SYNCTIAL VIRUS NEGATIVE (Negative)
[2018-12-15] MEDS ORDERED: solu-MEDROL 125 MG IV ONE (05:15)
[2018-12-15 05:27] VITALS: O2SAT 98
--- NOTE | 2018-12-15 09:22 | XRAY ---
Indication: Cough, dyspnea, and fever. Comparison: September 28, 2012. Portable chest again demonstrates normal heart, lungs, and bony thorax.
== END 2018-12-15 05:42 | disposition home or self-care (01) ==
LOC: ED 03:51
DX: J20.9 Acute bronchitis, unspecified (principal); R07.9 Chest pain, unspecified; J45.909 Unspecified asthma, uncomplicated
CPT/HCPCS: 36000; 36415; 71045; 80053; 83605; 83880; 84484; 85025; 85379; 87040; 87631; 87651; 93005; 93041; 94150; 96365; 99284; 99291; 99292; J0696; A9270-GY

== ENCOUNTER 2019-02-19 16:20 | Emergency (ER) | payer MEDICAID, OTHER ==
[2019-02-19] MEDS ORDERED: PROVENTIL 2.5 MG/3 ML NEB IH ONE ×4 (16:34→18:52)
--- NOTE | 2019-02-19 16:34 | ERPHSYRPT ---
- History of Present Illness Time Seen by Provider: 02/19/19 16:34 Source: patient, family Exam Limitations: no limitations Physician History: 54 y/o white female smoker presents with worsening soa over last 2 days. pt has copd. pts albuterol neb tx not helping much. denies cp. no abd pain. pt denies cardiac hx but she does have a family h/o heart dz. no sig cough. no known fever. Timing/Duration: day(s) (2) Activities at Onset: none Severity of Dyspnea-Max: mild Severity of Dyspnea-Current: moderate Possible Cause: occasional episodes Modifying Factors: Improves With: albuterol nebulizer Associated Symptoms: denies symptoms, No chest pain/discomfort Allergies/Adverse Reactions: Sulfa (Sulfonamide Antibiotics) Allergy (Intermediate, Verified 02/19/19 16:25) Hives triamcinolone acetonide [From Kenalog] Allergy (Intermediate, Verified 02/19/19 16:25) Hives Home Medications: Hydrocodone/Acetaminophen [Hydrocodone-Acetamin 10-325 mg] 1 each PO BID [History] Hx Tetanus, Diphtheria Vaccination/Date Given: No (unk) Hx Influenza Vaccination/Date Given: No Hx Pneumococcal Vaccination/Date Given: No - Review of Systems Constitutional: No Symptoms Eyes: No Symptoms Ears, Nose, & Throat: No Symptoms Respiratory: Dyspnea Cardiac: No Symptoms, No Chest Pain, No Palpitations Abdominal/Gastrointestinal: No Symptoms, No Abdominal Pain, No Nausea, No Vomiting, No Diarrhea Genitourinary Symptoms: No Symptoms Musculoskeletal: No Symptoms Skin: No Symptoms Neurological: No Symptoms Psychological: No Symptoms Endocrine: No Symptoms Hematologic/Lymphatic: No Symptoms Immunological/Allergic: No Symptoms All Other Systems: Reviewed and Negative - Past Medical History Pertinent Past Medical History: Yes Neurological History: Migraines ENT History: No Pertinent History Cardiac History: No Pertinent History Respiratory History: Asthma Endocrine Medical History: No Pertinent History Musculoskeletal History: No Pertinent History GI Medical History: GERD History: No Pertinent History Psycho-Social History: Anxiety, Depression Female Reproductive Disorders: No Pertinent History Other Medical History: chronic back pain - Past Surgical History Past Surgical History: Yes Neuro Surgical History: No Pertinent History Cardiac: No Pertinent History Respiratory: No Pertinent History Gastrointestinal: No Pertinent History Genitourinary: No Pertinent History Musculoskeletal: No Pertinent History Female Surgical History: Tubal Ligation Other Surgical History: tonsillectomy, adenoidectomy - Social History Smoking Status: Current every day smoker How long have you smoked: 36 Exposure to second hand smoke: Yes Drug Use: none Patient Lives Alone: No Significant Family History: no pertinent family hx - Nursing Vital Signs Nursing Vital Signs: Initial Vital Signs Temperature 99.7 F 02/19/19 16:25 Pulse Rate 138 H 02/19/19 16:25 Respiratory Rate 28 H 02/19/19 16:25 Blood Pressure 141/84 02/19/19 16:25 O2 Sat by Pulse Oximetry 97 02/19/19 16:25 Pain Scale Pain Intensity 4 - Physical Exam General Appearance: mild distress, alert, anxiety Eye Exam: PERRL/EOMI, eyes nml inspection Ears, Nose, Throat Exam: hearing grossly normal, normal ENT inspection, normal pharynx Neck Exam: normal inspection, non-tender, supple, full range of motion Respiratory Exam: normal breath sounds, lungs clear, airway intact, No chest tenderness, No respiratory distress Cardiovascular/Chest Exam: tachycardia Abdominal/Gastrointestinal Exam: soft, normal bowel sounds, No tenderness Rectal Exam: not done Extremity Exam: non-tender, normal range of motion, normal inspection Neurologic Exam: alert, 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, 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, 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 Skin Exam: normal color, warm, dry Lymphatic Exam: No adenopathy SpO2 Interpretation: normal O2 Delivery: Room Air - Course Nursing assessment & vital signs reviewed: Yes EKG Interpreted by Me: RATE ([id number]), Sinus Rhythm, NORMAL INTERVALS, NORMAL QRS, Non-specific ST Changes (new), Other (when compared to ekg dated 12/15/18, persistent s1/s111 pattern [address] depression and n) Ordered Tests: Active Orders 24 hr Category Date Time Status Kinesiologist STAT Care 02/19/19 16:35 Active EKG-ER Only STAT Care 02/19/19 16:34 Active IV Insertion STAT Care 02/19/19 16:34 Active Pulse Oximetry (ED) STAT Care 02/19/19 16:34 Active CHEST 1 VIEW (PORTABLE) Stat Exams 02/19/19 16:35 Completed CBC W DIFF Stat Lab 02/19/19 16:44 Completed CMP Stat Lab 02/19/19 16:44 Completed D-DIMER QUANTITATION Stat Lab 02/19/19 18:49 Completed Lactic Acid Stat Lab 02/19/19 17:15 Completed Lactic Acid Stat Lab 02/19/19 19:17 Ordered NT PRO BNP Stat Lab 02/19/19 16:44 Completed TROPONIN Q3H Lab 02/19/19 16:44 Completed TROPONIN Q3H Lab 02/19/19 18:49 Completed TROPONIN Q3H Lab 02/19/19 22:45 Ordered TROPONIN Q3H Lab 02/20/19 01:45 Ordered TROPONIN Q3H Lab 02/20/19 04:45 Ordered UA W/RFX UR CULTURE Stat Lab 02/19/19 17:29 Completed Peak Expiratory Flow Rate ONCE RT 02/19/19 16:48 Active Respiratory Therapy Assessment DAILY RT 02/19/19 16:47 Active Medication Summary Generic Name Dose Route Start Last Admin Trade Name Freq PRN Reason Stop Dose Admin Sodium Chloride 1,000 mls @ 100 mls/hr 02/19/19 16:45 02/19/19 16:47 Sodium Chloride 0.9% 1000 Ml IV 03/21/19 16:44 100 mls/hr .Q10H DARVIN Administration Discontinued Medications Generic Name Dose Route Start Last Admin Trade Name Freq PRN Reason Stop Dose Admin Hydrocodone Bitart/Acetaminophen 10 ml 02/19/19 19:25 Hydrocodone-Acetamin 2.5-108/5 Ml Solution PO 02/19/19 19:26 STAT STA Albuterol Sulfate 2.5 mg 02/19/19 16:34 02/19/19 16:42 Proventil 2.5 Mg/3 Ml Neb IH 02/19/19 16:35 2.5 mg STAT ONE Administration Albuterol Sulfate Confirm 02/19/19 16:41 Proventil 2.5 Mg/3 Ml Neb Administered 02/19/19 16:42 Dose 2.5 mg IH .STK-MED ONE Albuterol Sulfate Confirm 02/19/19 18:50 Proventil 2.5 Mg/3 Ml Neb Administered 02/19/19 18:51 Dose 2.5 mg IH .STK-MED ONE Albuterol Sulfate 2.5 mg 02/19/19 18:52 02/19/19 18:53 Proventil 2.5 Mg/3 Ml Neb IH 02/19/19 18:53 2.5 mg STAT ONE Administration Sodium Chloride 1,000 mls @ 999 mls/hr 02/19/19 18:31 02/19/19 18:42 Sodium Chloride 0.9% 1000 Ml IV 02/19/19 19:31 999 mls/hr .Q1H1M STA Administration Lorazepam 1 mg 02/19/19 17:07 02/19/19 17:12 Ativan 2 Mg/1 Ml Vial IV 02/19/19 17:08 1 mg STAT ONE Administration Lorazepam Confirm 02/19/19 17:11 Ativan 2 Mg/1 Ml Vial Administered 02/19/19 17:12 Dose 2 mg .ROUTE .STK-MED ONE Methylprednisolone Sodium Succinate 125 mg 02/19/19 18:43 02/19/19 19:07 Solu-Medrol 125 Mg IV 02/19/19 18:44 125 mg STAT ONE Administration Methylprednisolone Sodium Succinate Confirm 02/19/19 19:05 Solu-Medrol 125 Mg Administered 02/19/19 19:06 Dose 125 mg .ROUTE .STK-MED ONE Potassium Chloride 10 meq 02/19/19 18:33 02/19/19 18:41 Klor Con 10 Meq PO 02/19/19 18:34 10 meq STAT ONE Administration Potassium Chloride Confirm 02/19/19 18:40 Klor Con 10 Meq Administered 02/19/19 18:41 Dose 10 meq PO .STK-MED ONE Lab/Rad Data: Laboratory Result Diagrams 02/19/19 16:44 02/19/19 16:44 Laboratory Results 02/19/19 02/19/19 02/19/19 Range/Units 18:49 18:49 17:29 WBC (4.0-10.5) K/mm3 RBC (4.1-5.4) M/mm3 Hgb (12.0-16.0) gm/dl Hct (35-47) % MCV (78-100) fl MCH (26-32) pg MCHC (32-36) g/dl RDW (11.5-14.0) % Plt Count (150-450) K/mm3 MPV (6-9.5) fl Gran % (36.0-66.0) % Eos # (Auto) (0-0.5) Absolute Lymphs (auto) (1.0-4.6) Absolute Monos (auto) (0.0-1.3) Lymphocytes % (24.0-44.0) % Monocytes % (0.0-12.0) % Eosinophils % (0.00-5.0) % Basophils % (0.0-0.4) % Absolute Granulocytes (1.4-6.9) Basophils # (0-0.4) D-Dimer 234 (215-500) ng/mL Sodium (137-145) mmol/L Potassium (3.5-5.1) mmol/L Chloride (98-107) mmol/L Carbon Dioxide (22-30) mmol/L Anion Gap (5-15) MEQ/L BUN (7-17) mg/dL Creatinine (0.52-1.04) mg/dL Estimated GFR ML/MIN Glucose (74-106) mg/dL Lactic Acid (0.4-2.0) Calcium (8.4-10.2) mg/dL Total Bilirubin (0.2-1.3) mg/dL AST (14-36) U/L ALT (0-35) U/L Alkaline Phosphatase (38-126) U/L Troponin I < 0.012 (0.000-0.034) ng/mL NT-Pro-B Natriuret Pep (0-900) pg/mL Serum Total Protein (6.3-8.2) g/dL Albumin (3.5-5.0) g/dL Urine Color STRAW (YELLOW) Urine Appearance CLEAR (CLEAR) Urine pH 7.0 (5-6) Ur Specific [place] 1.002 (1.005-1.025) Urine Protein NEGATIVE (Negative) Urine Ketones NEGATIVE (NEGATIVE) Urine Blood SMALL (0-5) Van/ul Urine Nitrite NEGATIVE (NEGATIVE) Urine Bilirubin NEGATIVE (NEGATIVE) Urine Urobilinogen NEGATIVE (0-1) mg/dL Ur Leukocyte Esterase NEGATIVE (NEGATIVE) Urine WBC (Auto) 3-5 (0-5) /HPF Urine RBC (Auto) 0-2 (0-2) /HPF U Epithel Cells (Auto) RARE (FEW) /HPF Urine Bacteria (Auto) RARE (NEGATIVE) /HPF Unidentified Crystals 2-5 (NEGATIVE) /HPF Urine Mucus (Auto) SLIGHT (NEGATIVE) /HPF Urine Culture Reflexed NO (NO) Urine Glucose NEGATIVE (NEGATIVE) mg/dL 12/16/19 12/16/19 12/16/19 Range/Units 17:15 16:44 16:44 WBC (4.0-10.5) K/mm3 RBC (4.1-5.4) M/mm3 Hgb (12.0-16.0) gm/dl Hct (35-47) % MCV (78-100) fl MCH (26-32) pg MCHC (32-36) g/dl RDW (11.5-14.0) % Plt Count (150-450) K/mm3 MPV (6-9.5) fl Gran % (36.0-66.0) % Eos # (Auto) (0-0.5) Absolute Lymphs (auto) (1.0-4.6) Absolute Monos (auto) (0.0-1.3) Lymphocytes % (24.0-44.0) % Monocytes % (0.0-12.0) % Eosinophils % (0.00-5.0) % Basophils % (0.0-0.4) % Absolute Granulocytes (1.4-6.9) Basophils # (0-0.4) D-Dimer (215-500) ng/mL Sodium 144 (137-145) mmol/L Potassium 3.3 L (3.5-5.1) mmol/L Chloride 111 H (98-107) mmol/L Carbon Dioxide 23 (22-30) mmol/L Anion Gap 13.3 (5-15) MEQ/L BUN 8 (7-17) mg/dL Creatinine 0.56 (0.52-1.04) mg/dL Estimated GFR > 60.0 ML/MIN Glucose 131 H (74-106) mg/dL Lactic Acid 3.2 H (0.4-2.0) Calcium 9.8 (8.4-10.2) mg/dL Total Bilirubin 0.60 (0.2-1.3) mg/dL AST 25 (14-36) U/L ALT 15 (0-35) U/L Alkaline Phosphatase 78 (38-126) U/L Troponin I < 0.012 (0.000-0.034) ng/mL NT-Pro-B Natriuret Pep 55.8 (0-900) pg/mL Serum Total Protein 7.5 (6.3-8.2) g/dL Albumin 4.4 (3.5-5.0) g/dL Urine Color (YELLOW) Urine Appearance (CLEAR) Urine pH (5-6) Ur Specific [place] (1.005-1.025) Urine Protein (Negative) Urine Ketones (NEGATIVE) Urine Blood (0-5) Van/ul Urine Nitrite (NEGATIVE) Urine Bilirubin (NEGATIVE) Urine Urobilinogen (0-1) mg/dL Ur Leukocyte Esterase (NEGATIVE) Urine WBC (Auto) (0-5) /HPF Urine RBC (Auto) (0-2) /HPF U Epithel Cells (Auto) (FEW) /HPF Urine Bacteria (Auto) (NEGATIVE) /HPF Unidentified Crystals (NEGATIVE) /HPF Urine Mucus (Auto) (NEGATIVE) /HPF Urine Culture Reflexed (NO) Urine Glucose (NEGATIVE) mg/dL 02/19/19 Range/Units 16:44 WBC 8.1 (4.0-10.5) K/mm3 RBC 4.51 (4.1-5.4) M/mm3 Hgb 14.9 (12.0-16.0) gm/dl Hct 44.7 (35-47) % MCV 99.1 (78-100) fl MCH 33.0 H (26-32) pg MCHC 33.3 (32-36) g/dl RDW 13.5 (11.5-14.0) % Plt Count 182 (150-450) K/mm3 MPV 11.9 H (6-9.5) fl Gran % 72.0 H (36.0-66.0) % Eos # (Auto) 0.31 (0-0.5) Absolute Lymphs (auto) 1.44 (1.0-4.6) Absolute Monos (auto) 0.50 (0.0-1.3) Lymphocytes % 17.8 L (24.0-44.0) % Monocytes % 6.2 (0.0-12.0) % Eosinophils % 3.8 (0.00-5.0) % Basophils % 0.2 (0.0-0.4) % Absolute Granulocytes 5.84 (1.4-6.9) Basophils # 0.02 (0-0.4) D-Dimer (215-500) ng/mL Sodium (137-145) mmol/L Potassium (3.5-5.1) mmol/L Chloride (98-107) mmol/L Carbon Dioxide (22-30) mmol/L Anion Gap (5-15) MEQ/L BUN (7-17) mg/dL Creatinine (0.52-1.04) mg/dL Estimated GFR ML/MIN Glucose (74-106) mg/dL Lactic Acid (0.4-2.0) Calcium (8.4-10.2) mg/dL Total Bilirubin (0.2-1.3) mg/dL AST (14-36) U/L ALT (0-35) U/L Alkaline Phosphatase (38-126) U/L Troponin I (0.000-0.034) ng/mL NT-Pro-B Natriuret Pep (0-900) pg/mL Serum Total Protein (6.3-8.2) g/dL Albumin (3.5-5.0) g/dL Urine Color (YELLOW) Urine Appearance (CLEAR) Urine pH (5-6) Ur Specific [place] (1.005-1.025) Urine Protein (Negative) Urine Ketones (NEGATIVE) Urine Blood (0-5) Van/ul Urine Nitrite (NEGATIVE) Urine Bilirubin (NEGATIVE) Urine Urobilinogen (0-1) mg/dL Ur Leukocyte Esterase (NEGATIVE) Urine WBC (Auto) (0-5) /HPF Urine RBC (Auto) (0-2) /HPF U Epithel Cells (Auto) (FEW) /HPF Urine Bacteria (Auto) (NEGATIVE) /HPF Unidentified Crystals (NEGATIVE) /HPF Urine Mucus (Auto) (NEGATIVE) /HPF Urine Culture Reflexed (NO) Urine Glucose (NEGATIVE) mg/dL - Progress Progress: improved Air Movement: good Progress Note: 02/19/19 18:45 cxr-no acute process. pt states she can have steroids just not triamcinolone. Counseled pt/family regarding: lab results, diagnosis, need for follow-up, rad results - Departure Departure Disposition: Home Clinical Impression: COPD exacerbation, Bronchitis Condition: Stable Critical Care Time: No Referrals: VIVI JOHNSON NP [Primary Care Provider] - Instructions: Chronic Obstructive Pulmonary Disease Additional Instructions: drink plenty of fluids. do not use your hydrocodone tablets while taking cough medicine liquids. use your albuterol inhalers and albuterol nebulizers as prescribed. follow up with primary doctor for further management. avoid exposure to any smoke Prescriptions: Hydrocodone/Chlorphen Polis [Tussionex Pennkinetic Susp] 10 ml PO Q12H PRN PRN # 60 ml PRN Reason: Cough Prednisone 10 mg [Deltasone 10 mg] 10 mg PO TID #12 tablet
[2019-02-19] MEDS ORDERED: Sodium Chloride 0.9% 1000 ML 1,000 ML IV SCH (16:45)
[2019-02-19] MEDS ORDERED: Sodium Chloride 0.9% 1000 ML 1,000 ML ONE ×2 (16:46→18:40)
[2019-02-19 16:48] LABS: Absolute Neutrophil Ct (ANC) 5.84 (1.4-6.9); BASOPHIL % 0.2 % (0.0-0.4); Basophil (Absolute #) 0.02 (0-0.4); Eosinophil % 3.8 % (0.00-5.0); Eosinophil (Absolute #) 0.31 (0-0.5); Hematocrit 44.7 % (35-47); Hemoglobin 14.9 gm/dl (12.0-16.0); Lymphocyte (Absolute #) 1.44 (1.0-4.6); Lymphocytes % 17.8 % (24.0-44.0); Mean Cell Volume 99.1 fl (78-100); Mean Corpuscular Hgb Concent. 33.3 g/dl (32-36); Mean Platelet Volume 11.9 fl (6-9.5); Monocytes % 6.2 % (0.0-12.0); Platelet Count 182 K/mm3 (150-450); Red Blood Count 4.51 M/mm3 (4.1-5.4); Red Cell Distribution Width 13.5 % (11.5-14.0); White Blood Count 8.1 K/mm3 (4.0-10.5)
[2019-02-19] MEDS ORDERED: Ativan 2 MG/1 ML VIAL IV ONE (17:07)
[2019-02-19 17:11] LABS: ALBUMIN 4.4 g/dL (3.5-5.0); ALKALINE PHOSPHATASE 78 U/L (38-126); ANION GAP 13.3 MEQ/L (5-15); BLOOD UREA NITROGEN 8 mg/dL (7-17); CHLORIDE 111 mmol/L (98-107); Calcium 9.8 mg/dL (8.4-10.2); Carbon Dioxide 23 mmol/L (22-30); Creatinine 1 0.56 mg/dL (0.52-1.04); Glucose 131 mg/dL (74-106); NT PRO BNP 55.8 pg/mL (0-900); Potassium 3.3 mmol/L (3.5-5.1); SGOT/AST 25 U/L (14-36); SGPT/ALT 15 U/L (0-35); SODIUM 144 mmol/L (137-145); Total Protein 7.5 g/dL (6.3-8.2)
[2019-02-19] MEDS ORDERED: Ativan 2 MG/1 ML VIAL ONE (17:11)
[2019-02-19 17:17] LABS: Lactic Acid 3.2 (0.4-2.0)
--- NOTE | 2019-02-19 17:23 | XRAY ---
Indication: Short of breath. Comparison: January 23, 2019. Portable chest remains clear. Heart is not enlarged. Bony thorax intact. No new/acute abnormalities. Impression: Nonacute chest.
[2019-02-19 17:44] LABS: Appearance CLEAR (CLEAR); Bacteria RARE /HPF (NEGATIVE); Bilirubin NEGATIVE (NEGATIVE); Blood SMALL Ery/ul (0-5); Epithelial Cells RARE /HPF (FEW); Glucose NEGATIVE (NEGATIVE); Ketones NEGATIVE (NEGATIVE); Leukocyte Esterase NEGATIVE (NEGATIVE); Mucus SLIGHT /HPF (NEGATIVE); Nitrite NEGATIVE (NEGATIVE); Protein,Urine Dip NEGATIVE (Negative); RBC 0-2 /HPF (0-2); Specific Gravity 1.002 (1.005-1.025); Urobilinogen NEGATIVE mg/dL (0-1)
[2019-02-19] MEDS ORDERED: Sodium Chloride 0.9% 1000 ML 1,000 ML IV STA (18:31)
[2019-02-19] MEDS ORDERED: Klor Con 10 MEQ PO ONE ×2 (18:33→18:40)
[2019-02-19] MEDS ORDERED: solu-MEDROL 125 MG IV ONE (18:43)
[2019-02-19] MEDS ORDERED: solu-MEDROL 125 MG ONE (19:05)
[2019-02-19] MEDS ORDERED: HYDROCODONE-ACETAMIN 2.5-108/5 ML SOLUTION PO STA (19:25)
[2019-02-19] MEDS ORDERED: HYDROCODONE-ACETAMIN 2.5-108/5 ML SOLUTION ONE (19:43)
[2019-02-19 19:57] VITALS: BP 119/71; PULSE 106; O2SAT 96
== END 2019-02-19 19:50 | disposition home or self-care (01) ==
LOC: ED 16:20
DX: J44.1 Chronic obstructive pulmonary disease with (acute) exacerbation (principal); J40 Bronchitis, not specified as acute or chronic; Z79.891 Long term (current) use of opiate analgesic
CPT/HCPCS: 36000; 36415; 71045; 80053; 81001; 83605; 83880; 84484; 85025; 85379; 93005; 93041; 94150; 94640; 94760; 96360; 96361; 96374; 96375; 99284; J2060; J2930; J7609; A9270-GY

== ENCOUNTER 2019-03-16 10:01 | Emergency (ER) | payer SELFPAY ==
[2019-03-16] MEDS ORDERED: DUONEB 0.5-3 MG/3 ml Neb IH ONE (10:04)
[2019-03-16] MEDS ORDERED: solu-MEDROL 125 MG IV ONE ×2 (10:18→11:59)
--- NOTE | 2019-03-16 10:18 | ERPHSYRPT ---
- History of Present Illness Time Seen by Provider: 03/16/19 10:10 Source: patient Exam Limitations: clinical condition Physician History: 54 y/o smoker white female with copd presents with severe soa and coughing. no cp. sudden onset last pm and worsening. pt states she can have iv steroids and oral prednisone just no injectable triamcinolone. pt has h/o copd. she did give herself a nebulizer tx this am but not that helpful. pt has h/o copd, recurrent bronchitis, asthma, and anxiety. Timing/Duration: yesterday Severity of Dyspnea-Max: moderate Severity of Dyspnea-Current: moderate Possible Cause: occasional episodes Modifying Factors: Improves With: albuterol inhaler, albuterol nebulizer, coughing Associated Symptoms: anxiety, cough, wheezing, No chest pain/discomfort Allergies/Adverse Reactions: Sulfa (Sulfonamide Antibiotics) Allergy (Intermediate, Verified 03/16/19 10:14) Hives triamcinolone acetonide [From Kenalog] Allergy (Intermediate, Verified 03/16/19 10:14) Hives Home Medications: Albuterol Sulfate [Ventolin Hfa] 8 gm IH QIDPRN PRN 03/16/19 [History] Hx Tetanus, Diphtheria Vaccination/Date Given: No (unk) Hx Influenza Vaccination/Date Given: No Hx Pneumococcal Vaccination/Date Given: No - Review of Systems Constitutional: No Symptoms Eyes: No Symptoms Ears, Nose, & Throat: No Symptoms Respiratory: Cough, Dyspnea Cardiac: No Symptoms Abdominal/Gastrointestinal: No Symptoms Genitourinary Symptoms: No Symptoms Musculoskeletal: No Symptoms Skin: No Symptoms Neurological: No Symptoms Psychological: No Symptoms Endocrine: No Symptoms Hematologic/Lymphatic: No Symptoms Immunological/Allergic: No Symptoms All Other Systems: Reviewed and Negative - Past Medical History Pertinent Past Medical History: Yes Neurological History: Migraines ENT History: No Pertinent History Cardiac History: No Pertinent History Respiratory History: Asthma Endocrine Medical History: No Pertinent History Musculoskeletal History: No Pertinent History GI Medical History: GERD History: No Pertinent History Psycho-Social History: Anxiety, Depression Female Reproductive Disorders: No Pertinent History Other Medical History: chronic back pain - Past Surgical History Past Surgical History: Yes Neuro Surgical History: No Pertinent History Cardiac: No Pertinent History Respiratory: No Pertinent History Gastrointestinal: No Pertinent History Genitourinary: No Pertinent History Musculoskeletal: No Pertinent History Female Surgical History: Tubal Ligation Other Surgical History: tonsillectomy, adenoidectomy - Social History Smoking Status: Current every day smoker How long have you smoked: 36 Exposure to second hand smoke: Yes Drug Use: none Patient Lives Alone: No Significant Family History: no pertinent family hx - Nursing Vital Signs Nursing Vital Signs: Initial Vital Signs Temperature 99 F 03/16/19 10:03 Pulse Rate 129 H 03/16/19 10:03 Respiratory Rate 32 H 03/16/19 10:03 Blood Pressure 138/98 03/16/19 10:03 O2 Sat by Pulse Oximetry 93 L 03/16/19 10:03 Pain Scale Pain Intensity 0 - Physical Exam General Appearance: moderate distress, alert, anxiety Eye Exam: PERRL/EOMI, eyes nml inspection Ears, Nose, Throat Exam: hearing grossly normal Neck Exam: normal inspection, non-tender, supple, full range of motion Respiratory Exam: respiratory distress, airway intact, rhonchi, wheezing, No chest tenderness, No stridor Cardiovascular/Chest Exam: tachycardia Abdominal/Gastrointestinal Exam: soft, normal bowel sounds, No tenderness Rectal Exam: not done Extremity Exam: non-tender, normal range of motion, normal inspection Neurologic Exam: alert, 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, 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, 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, nml cerebellar function, nml station & gait, sensation nml Skin Exam: normal color, warm, dry Lymphatic Exam: No adenopathy SpO2 Interpretation: borderline oxygenation O2 Delivery: Room Air - Course Nursing assessment & vital signs reviewed: Yes EKG Interpreted by Me: RATE ([id number]), Sinus Rhythm, Sinus Tach, NORMAL AXIS, NORMAL QRS, Other (no change from comparison ekg dated 02/19/19) Ordered Tests: Active Orders 24 hr Category Date Time Status Trip Follower STAT Care 03/16/19 10:18 Active EKG-ER Only STAT Care 03/16/19 10:18 Active IV Insertion STAT Care 03/16/19 10:18 Active Pulse Oximetry (ED) STAT Care 03/16/19 10:18 Active CHEST 1 VIEW (PORTABLE) Stat Exams 03/16/19 10:18 Completed ARTERIAL BLOOD GASES Stat Lab 03/16/19 10:18 Completed BLOOD CULTURE Stat Lab 03/16/19 10:50 Received CBC W DIFF Stat Lab 03/16/19 10:50 Completed CMP Stat Lab 03/16/19 10:50 Completed D-DIMER QUANTITATIVE Stat Lab 03/16/19 10:50 Completed Lactic Acid Stat Lab 03/16/19 10:18 Completed NT PRO BNP Stat Lab 03/16/19 10:50 Completed TROPONIN Q3H Lab 03/16/19 10:30 Completed TROPONIN Q3H Lab 03/16/19 13:30 Ordered TROPONIN Q3H Lab 03/16/19 16:30 Ordered TROPONIN Q3H Lab 03/16/19 19:30 Ordered TROPONIN Q3H Lab 03/16/19 22:30 Ordered Respiratory Therapy Assessment ONCE RT 03/16/19 10:26 Active Medication Summary Discontinued Medications Generic Name Dose Route Start Last Admin Trade Name Freq PRN Reason Stop Dose Admin Albuterol/Ipratropium Confirm 03/16/19 10:04 Duoneb 0.5-3 Mg/3 Ml Neb Administered 03/16/19 10:05 Dose 3 ml IH .STK-MED ONE Methylprednisolone Sodium Succinate 125 mg 03/16/19 10:18 03/16/19 10:29 Solu-Medrol 125 Mg IV 03/16/19 10:19 125 mg STAT ONE Administration Methylprednisolone Sodium Succinate Confirm 03/16/19 10:26 Solu-Medrol 125 Mg Administered 03/16/19 10:27 Dose 125 mg .ROUTE .STK-MED ONE Methylprednisolone Sodium Succinate 80 mg 03/16/19 11:59 03/16/19 12:04 Solu-Medrol 125 Mg IV 03/16/19 12:00 80 mg STAT ONE Administration Methylprednisolone Sodium Succinate Confirm 03/16/19 12:03 Solu-Medrol 125 Mg Administered 03/16/19 12:04 Dose 125 mg .ROUTE .STK-MED ONE Lab/Rad Data: Laboratory Result Diagrams 03/16/19 10:50 03/16/19 10:50 Laboratory Results 03/16/19 03/16/19 03/16/19 Range/Units 10:50 10:50 10:50 WBC 7.7 (4.0-10.5) K/mm3 RBC 4.76 (4.1-5.4) M/mm3 Hgb 16.0 (12.0-16.0) gm/dl Hct 47.5 H (35-47) % MCV 99.8 (78-100) fl MCH 33.6 H (26-32) pg MCHC 33.7 (32-36) g/dl RDW 13.7 (11.5-14.0) % Plt Count 136 L (150-450) K/mm3 MPV 12.0 H (7.5-11.0) fl Gran % 66.8 H (36.0-66.0) % Eos # (Auto) 0.47 (0-0.5) Absolute Lymphs (auto) 1.41 (1.0-4.6) Absolute Monos (auto) 0.66 (0.0-1.3) Lymphocytes % 18.2 L (24.0-44.0) % Monocytes % 8.5 (0.0-12.0) % Eosinophils % 6.1 H (0.00-5.0) % Basophils % 0.4 (0.0-0.4) % Absolute Granulocytes 5.16 (1.4-6.9) Basophils # 0.03 (0-0.4) D-Dimer 270 (215-500) ng/mL Puncture Site pCO2 (35-45) mmHg pO2 (75-100) mmHg Base Excess (-2.0-2.0) O2 Saturation (94-100) g/dF ABG pH (7.35-7.45) ABG HCO3 (22-28) ABG O2 Sat (Measured) (95-100) % Tee Test A-a Gradient a/A Ratio Hemoglobin Carboxyhemoglobin (0.0-6.9) % THgb Methemoglobin (1.4-1.5) % Potassium 4.1 (3.5-5.1) POC O2 Flow Rate % Sodium 142 (137-145) mmol/L Chloride 108 H (98-107) mmol/L Carbon Dioxide 27 (23-27) mEq/L Anion Gap 10.4 (5-15) MEQ/L BUN 9 (7-17) mg/dL Creatinine 0.57 (0.52-1.04) mg/dL Estimated GFR > 60.0 ML/MIN Glucose 90 (74-106) mg/dL Lactic Acid (0.4-2.0) Calcium 9.9 (8.4-10.2) mg/dL Total Bilirubin 1.10 (0.2-1.3) mg/dL AST 26 (14-36) U/L ALT 13 (0-35) U/L Alkaline Phosphatase 97 (38-126) U/L Troponin I (0.000-0.034) ng/mL NT-Pro-B Natriuret Pep 32.2 (0-900) pg/mL Serum Total Protein 8.2 (6.3-8.2) g/dL Albumin 4.6 (3.5-5.0) g/dL Influenza Type A Ag (NEGATIVE) Influenza Type B Ag (NEGATIVE) RSV (PCR) (Negative) 03/16/19 03/16/19 03/16/19 Range/Units 10:40 10:30 10:18 WBC (4.0-10.5) K/mm3 RBC (4.1-5.4) M/mm3 Hgb (12.0-16.0) gm/dl Hct (35-47) % MCV (78-100) fl MCH (26-32) pg MCHC (32-36) g/dl RDW (11.5-14.0) % Plt Count (150-450) K/mm3 MPV (7.5-11.0) fl Gran % (36.0-66.0) % Eos # (Auto) (0-0.5) Absolute Lymphs (auto) (1.0-4.6) Absolute Monos (auto) (0.0-1.3) Lymphocytes % (24.0-44.0) % Monocytes % (0.0-12.0) % Eosinophils % (0.00-5.0) % Basophils % (0.0-0.4) % Absolute Granulocytes (1.4-6.9) Basophils # (0-0.4) D-Dimer (215-500) ng/mL Puncture Site lr pCO2 45 (35-45) mmHg pO2 76 (75-100) mmHg Base Excess -1.8 (-2.0-2.0) O2 Saturation 93.2 L (94-100) g/dF ABG pH 7.34 L (7.35-7.45) ABG HCO3 24.3 (22-28) ABG O2 Sat (Measured) 97 (95-100) % Tee Test yes A-a Gradient 153 a/A Ratio 0.33 Hemoglobin 16.7 Carboxyhemoglobin 3.5 (0.0-6.9) % THgb Methemoglobin 0.7 L (1.4-1.5) % Potassium 4.1 (3.5-5.1) POC O2 Flow Rate 40 % Sodium (137-145) mmol/L Chloride (98-107) mmol/L Carbon Dioxide 25 (23-27) mEq/L Anion Gap (5-15) MEQ/L BUN (7-17) mg/dL Creatinine (0.52-1.04) mg/dL Estimated GFR ML/MIN Glucose (74-106) mg/dL Lactic Acid 0.6 (0.4-2.0) Calcium (8.4-10.2) mg/dL Total Bilirubin (0.2-1.3) mg/dL AST (14-36) U/L ALT (0-35) U/L Alkaline Phosphatase (38-126) U/L Troponin I < 0.012 (0.000-0.034) ng/mL NT-Pro-B Natriuret Pep (0-900) pg/mL Serum Total Protein (6.3-8.2) g/dL Albumin (3.5-5.0) g/dL Influenza Type A Ag NEGATIVE (NEGATIVE) Influenza Type B Ag NEGATIVE (NEGATIVE) RSV (PCR) NEGATIVE (Negative) - Progress Progress: improved Air Movement: good Progress Note: 03/16/19 11:02 cxr-no acute process. 03/16/19 12:12 pt states she does not want admission or transfer. she states she is breathing much better. 03/16/19 12:28 pt states she has hydrocodone cough medicine but it is not effective - Departure Departure Disposition: Home Clinical Impression: Bronchitis, COPD exacerbation Condition: Stable Critical Care Time: No Referrals: [facility] [employer] [Primary Care Provider] - Instructions: Chronic Obstructive Pulmonary Disease Additional Instructions: stop smoking. call your primary doctor for further management. return to ED for worsening symptoms. Prescriptions: Azithromycin 250 mg [Zithromax 250 MG TABLET] 250 mg PO ZPACK #6 tablet Benzonatate [Tessalon Perle] 200 mg PO TID #12 capsule Prednisone 10 mg [Deltasone 10 mg] 10 mg PO TID #12 tablet
[2019-03-16 10:25] LABS: ARTERIAL BLOOD GAS pH 7.34 (7.35-7.45)
[2019-03-16 10:26] LABS: A-aADO2 153; ABG HEMOGLOBIN 16.7; ABG POTASSIUM 4.1 (3.5-5.1); ARTERIAL BLD GAS O2 SATURATION 97 % (95-100); ARTERIAL BLOOD GAS BASE EXCESS -1.8 (-2.0-2.0); ARTERIAL BLOOD GAS FIO2 40 %; ARTERIAL BLOOD GAS PCO2 45 mmHg (35-45); ARTERIAL BLOOD GAS PO2 76 mmHg (75-100); CARBON DIOXIDE 25 mEq/L (23-27); HCO3- 24.3 (22-28); Methhemoglobin 0.7 % (1.4-1.5); paO2 pAO1 0.33
[2019-03-16] MEDS ORDERED: solu-MEDROL 125 MG ONE ×2 (10:26→12:03)
[2019-03-16 10:27] LABS: ABG SITE lr; ALLEN TEST OK? yes; CARBOXYHEMOGLOBIN 3.5 % THgb (0.0-6.9); HGB O2 SAT 93.2 g/dF (94-100); Lactic Acid 0.6 (0.4-2.0)
--- NOTE | 2019-03-16 10:39 | XRAY ---
Indication: Short of breath. Comparison: February 19, 2019. Portable chest again demonstrates normal heart and lungs. Bony thorax intact. No new/acute findings.
[2019-03-16 10:54] LABS: Absolute Neutrophil Ct (ANC) 5.16 (1.4-6.9); BASOPHIL % 0.4 % (0.0-0.4); Basophil (Absolute #) 0.03 (0-0.4); Eosinophil % 6.1 % (0.00-5.0); Eosinophil (Absolute #) 0.47 (0-0.5); Hematocrit 47.5 % (35-47); Lymphocyte (Absolute #) 1.41 (1.0-4.6); Lymphocytes % 18.2 % (24.0-44.0); Mean Cell Volume 99.8 fl (78-100); Mean Corpuscular Hemoglobin 33.6 pg (26-32); Mean Corpuscular Hgb Concent. 33.7 g/dl (32-36); Monocyte (Absolute #) 0.66 (0.0-1.3); Monocytes % 8.5 % (0.0-12.0); Neutrophil % 66.8 % (36.0-66.0); Platelet Count 136 K/mm3 (150-450); Red Blood Count 4.76 M/mm3 (4.1-5.4); Red Cell Distribution Width 13.7 % (11.5-14.0); White Blood Count 7.7 K/mm3 (4.0-10.5)
[2019-03-16 11:15] LABS: ALBUMIN 4.6 g/dL (3.5-5.0); ALKALINE PHOSPHATASE 97 U/L (38-126); ANION GAP 10.4 MEQ/L (5-15); BLOOD UREA NITROGEN 9 mg/dL (7-17); CHLORIDE 108 mmol/L (98-107); Calcium 9.9 mg/dL (8.4-10.2); Carbon Dioxide 27 mmol/L (22-30); Creatinine 1 0.57 mg/dL (0.52-1.04); Glucose 90 mg/dL (74-106); NT PRO BNP 32.2 pg/mL (0-900); Potassium 4.1 mmol/L (3.5-5.1); SGOT/AST 26 U/L (14-36); SGPT/ALT 13 U/L (0-35); SODIUM 142 mmol/L (137-145); Total Protein 8.2 g/dL (6.3-8.2)
[2019-03-16 11:28] LABS: INFLUENZA A NEGATIVE (NEGATIVE); INFLUENZA B NEGATIVE (NEGATIVE); RESPIRATORY SYNCTIAL VIRUS NEGATIVE (Negative)
[2019-03-16 12:37] VITALS: BP 136/79; PULSE 112; O2SAT 96
== END 2019-03-16 12:39 | disposition home or self-care (01) ==
LOC: ED 10:01
DX: J40 Bronchitis, not specified as acute or chronic (principal); J44.1 Chronic obstructive pulmonary disease with (acute) exacerbation
CPT/HCPCS: 36000; 36415; 36600; 71045; 80053; 82375; 82803; 83605; 83880; 84484; 85025; 85379; 87040; 87631; 93005; 93041; 94640; 94760; 96374; 96376; 99284; J2930; A9270-GY

== ENCOUNTER 2019-04-12 00:36 | Emergency (ER) | payer SELFPAY ==
[2019-04-12] MEDS ORDERED: solu-MEDROL 125 MG IV ONE (00:49)
[2019-04-12] MEDS ORDERED: Ativan 2 MG/1 ML VIAL IV ONE (00:49)
[2019-04-12] MEDS ORDERED: PROVENTIL 2.5 MG/3 ML NEB IH ONE ×3 (00:49→03:55)
--- NOTE | 2019-04-12 00:49 | ERPHSYRPT ---
- History of Present Illness Time Seen by Provider: 04/12/19 00:40 Source: patient Exam Limitations: clinical condition Physician History: 54 y/o white female with known h/o copd, asthma, recurrent bronchitis and anxiety presents with recurrent soa. 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 pt continues to smoke cigarettes. pt here once a month for last several months for same sx. pt can have iv solumedrol and oral prednisone. pt denies cp. Timing/Duration: hour(s) (8) Activities at Onset: none Severity of Dyspnea-Max: moderate Severity of Dyspnea-Current: moderate Possible Cause: frequent episodes Modifying Factors: Improves With: albuterol inhaler, coughing Associated Symptoms: anxiety, cough, wheezing Allergies/Adverse Reactions: Sulfa (Sulfonamide Antibiotics) Allergy (Intermediate, Verified 03/16/19 10:14) Hives triamcinolone acetonide [From Kenalog] Allergy (Intermediate, Verified 03/16/19 10:14) Hives Home Medications: Albuterol Sulfate [Ventolin Hfa] 8 gm IH QIDPRN PRN 03/16/19 [History] Hx Tetanus, Diphtheria Vaccination/Date Given: No (unk) Hx Influenza Vaccination/Date Given: No Hx Pneumococcal Vaccination/Date Given: No - Review of Systems Constitutional: No Symptoms Eyes: No Symptoms Ears, Nose, & Throat: No Symptoms Respiratory: Cough, Dyspnea, Wheezing Cardiac: No Symptoms Abdominal/Gastrointestinal: No Symptoms Genitourinary Symptoms: No Symptoms Musculoskeletal: No Symptoms Skin: No Symptoms Neurological: No Symptoms Psychological: No Symptoms Endocrine: No Symptoms Hematologic/Lymphatic: No Symptoms Immunological/Allergic: No Symptoms All Other Systems: Reviewed and Negative - Past Medical History Pertinent Past Medical History: Yes Neurological History: Migraines ENT History: No Pertinent History Cardiac History: No Pertinent History Respiratory History: Asthma Endocrine Medical History: No Pertinent History Musculoskeletal History: No Pertinent History GI Medical History: GERD History: No Pertinent History Psycho-Social History: Anxiety, Depression Female Reproductive Disorders: No Pertinent History Other Medical History: chronic back pain - Past Surgical History Past Surgical History: Yes Neuro Surgical History: No Pertinent History Cardiac: No Pertinent History Respiratory: No Pertinent History Gastrointestinal: No Pertinent History Genitourinary: No Pertinent History Musculoskeletal: No Pertinent History Female Surgical History: Tubal Ligation Other Surgical History: tonsillectomy, adenoidectomy - Social History Smoking Status: Current every day smoker How long have you smoked: 36 Exposure to second hand smoke: Yes Drug Use: none Patient Lives Alone: No Significant Family History: no pertinent family hx - Nursing Vital Signs Nursing Vital Signs: Initial Vital Signs Pulse Rate 135 H 04/12/19 00:50 Respiratory Rate 30 H 04/12/19 00:50 O2 Sat by Pulse Oximetry 92 L 04/12/19 00:50 Pain Scale Pain Intensity 0 - Physical Exam General Appearance: moderate distress, alert, anxiety Eye Exam: PERRL/EOMI Ears, Nose, Throat Exam: hearing grossly normal, normal ENT inspection, normal pharynx Neck Exam: normal inspection, non-tender, supple, full range of motion Respiratory Exam: respiratory distress, airway intact, wheezing, No chest tenderness Cardiovascular/Chest Exam: normal heart sounds, regular rate/rhythm Abdominal/Gastrointestinal Exam: soft, normal bowel sounds, No tenderness Extremity Exam: non-tender, normal range of motion, normal inspection Neurologic Exam: alert, 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, cooperative, 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 II-XII 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 as tested Skin Exam: normal color, warm, dry Lymphatic Exam: No adenopathy SpO2 Interpretation: borderline oxygenation O2 Delivery: Nasal Cannula - Course Nursing assessment & vital signs reviewed: Yes Ordered Tests: Active Orders 24 hr Category Date Time 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 04/12/19 00:50 Active EKG-ER Only STAT Care 04/12/19 00:49 Active IV Insertion STAT Care 04/12/19 00:49 Active Pulse Oximetry (ED) STAT Care 04/12/19 00:49 Active CHEST 1 VIEW (PORTABLE) Stat Exams 04/12/19 00:50 Taken CBC W DIFF Stat Lab 04/12/19 00:59 Completed CMP Stat Lab 04/12/19 00:59 Completed Lactic Acid Stat Lab 04/12/19 00:57 Completed NT PRO BNP Stat Lab 04/12/19 00:59 Completed Respiratory Therapy Assessment UD RT 04/12/19 01:11 Completed Medication Summary Discontinued Medications Generic Name Dose Route Start Last Admin Trade Name Freq PRN Reason Stop Dose Admin Albuterol Sulfate 2.5 mg 04/12/19 00:49 04/12/19 00:50 Proventil 2.5 Mg/3 Ml Neb IH 04/12/19 00:50 2.5 mg STAT ONE Administration Albuterol Sulfate Confirm 04/12/19 03:43 Proventil 2.5 Mg/3 Ml Neb Administered 04/12/19 03:44 Dose 2.5 mg IH .STK-MED ONE Lorazepam 1 mg 04/12/19 00:49 04/12/19 01:51 Ativan 2 Mg/1 Ml Vial IV 04/12/19 00:50 1 mg STAT ONE Administration Lorazepam Confirm 04/12/19 01:13 Ativan 2 Mg/1 Ml Vial Administered 04/12/19 01:14 Dose 2 mg .ROUTE .STK-MED ONE Methylprednisolone Sodium Succinate 125 mg 04/12/19 00:49 04/12/19 01:51 Solu-Medrol 125 Mg IV 04/12/19 00:50 125 mg STAT ONE Administration Methylprednisolone Sodium Succinate Confirm 04/12/19 01:13 Solu-Medrol 125 Mg Administered 04/12/19 01:14 Dose 125 mg .ROUTE .STK-MED ONE Lab/Rad Data: Laboratory Result Diagrams 04/12/19 00:59 04/12/19 00:59 Laboratory Results 04/12/19 04/12/19 04/12/19 Range/Units 01:23 00:59 00:59 WBC 11.2 H (4.0-10.5) K/mm3 RBC 4.56 (4.1-5.4) M/mm3 Hgb 14.7 (12.0-16.0) gm/dl Hct 44.8 (35-47) % MCV 98.2 (78-100) fl MCH 32.2 H (26-32) pg MCHC 32.8 (32-36) g/dl RDW 13.5 (11.5-14.0) % Plt Count 239 (150-450) K/mm3 MPV 12.3 H (7.5-11.0) fl Gran % 54.7 (36.0-66.0) % Eos # (Auto) 0.82 H (0-0.5) Absolute Lymphs (auto) 2.86 (1.0-4.6) Absolute Monos (auto) 1.35 H (0.0-1.3) Lymphocytes % 25.5 (24.0-44.0) % Monocytes % 12.1 H (0.0-12.0) % Eosinophils % 7.3 H (0.00-5.0) % Basophils % 0.4 (0.0-0.4) % Absolute Granulocytes 6.13 (1.4-6.9) Basophils # 0.04 (0-0.4) Sodium 141 (137-145) mmol/L Potassium 3.9 (3.5-5.1) mmol/L Chloride 106 (98-107) mmol/L Carbon Dioxide 24 (22-30) mmol/L Anion Gap 14.7 (5-15) MEQ/L BUN 11 (7-17) mg/dL Creatinine 0.52 (0.52-1.04) mg/dL Estimated GFR > 60.0 ML/MIN Glucose 121 H (74-106) mg/dL Lactic Acid (0.4-2.0) Calcium 10.0 (8.4-10.2) mg/dL Total Bilirubin 0.80 (0.2-1.3) mg/dL AST 19 (14-36) U/L ALT 11 (0-35) U/L Alkaline Phosphatase 100 (38-126) U/L NT-Pro-B Natriuret Pep 98.7 (0-900) pg/mL Serum Total Protein 7.4 (6.3-8.2) g/dL Albumin 4.2 (3.5-5.0) g/dL Influenza Type A Ag NEGATIVE (NEGATIVE) Influenza Type B Ag NEGATIVE (NEGATIVE) RSV (PCR) NEGATIVE (Negative) 04/12/19 Range/Units 00:57 WBC (4.0-10.5) K/mm3 RBC (4.1-5.4) M/mm3 Hgb (12.0-16.0) gm/dl Hct (35-47) % MCV (78-100) fl MCH (26-32) pg MCHC (32-36) g/dl RDW (11.5-14.0) % Plt Count (150-450) K/mm3 MPV (7.5-11.0) fl Gran % (36.0-66.0) % Eos # (Auto) (0-0.5) Absolute Lymphs (auto) (1.0-4.6) Absolute Monos (auto) (0.0-1.3) Lymphocytes % (24.0-44.0) % Monocytes % (0.0-12.0) % Eosinophils % (0.00-5.0) % Basophils % (0.0-0.4) % Absolute Granulocytes (1.4-6.9) Basophils # (0-0.4) Sodium (137-145) mmol/L Potassium (3.5-5.1) mmol/L Chloride (98-107) mmol/L Carbon Dioxide (22-30) mmol/L Anion Gap (5-15) MEQ/L BUN (7-17) mg/dL Creatinine (0.52-1.04) mg/dL Estimated GFR ML/MIN Glucose (74-106) mg/dL Lactic Acid 1.2 (0.4-2.0) Calcium (8.4-10.2) mg/dL Total Bilirubin (0.2-1.3) mg/dL AST (14-36) U/L ALT (0-35) U/L Alkaline Phosphatase (38-126) U/L NT-Pro-B Natriuret Pep (0-900) pg/mL Serum Total Protein (6.3-8.2) g/dL Albumin (3.5-5.0) g/dL Influenza Type A Ag (NEGATIVE) Influenza Type B Ag (NEGATIVE) RSV (PCR) (Negative) - Progress Progress: improved, re-examined Air Movement: good Progress Note: 04/12/19 03:45 cxr-no acute process when compared to prior xrays Blood Culture(s) Obtained: No Antibiotics given: No Counseled pt/family regarding: lab results, diagnosis, need for follow-up, rad results - Departure Departure Disposition: Home, Extended Care Facility Clinical Impression: COPD exacerbation Condition: Stable Critical Care Time: No Referrals: VIVI JOHNSON NP [NON-STAFF PHY W/O PRIVILEGES] - Instructions: Chronic Obstructive Pulmonary Disease Additional Instructions: follow up with primary doctor for further management. stop smoking. Prescriptions: Albuterol 2.5 mg/3 ml Neb [Proventil 2.5 mg/3 ml Neb] 2.5 mg IH Q6H #25 neb Prednisone 10 mg [Deltasone 10 mg] 10 mg PO TID #12 tablet
[2019-04-12 01:01] LABS: Absolute Neutrophil Ct (ANC) 6.13 (1.4-6.9); BASOPHIL % 0.4 % (0.0-0.4); Basophil (Absolute #) 0.04 (0-0.4); Eosinophil % 7.3 % (0.00-5.0); Eosinophil (Absolute #) 0.82 (0-0.5); Hematocrit 44.8 % (35-47); Hemoglobin 14.7 gm/dl (12.0-16.0); Lymphocyte (Absolute #) 2.86 (1.0-4.6); Lymphocytes % 25.5 % (24.0-44.0); Mean Cell Volume 98.2 fl (78-100); Mean Corpuscular Hemoglobin 32.2 pg (26-32); Mean Corpuscular Hgb Concent. 32.8 g/dl (32-36); Mean Platelet Volume 12.3 fl (7.5-11.0); Monocyte (Absolute #) 1.35 (0.0-1.3); Monocytes % 12.1 % (0.0-12.0); Neutrophil % 54.7 % (36.0-66.0); Platelet Count 239 K/mm3 (150-450); Red Blood Count 4.56 M/mm3 (4.1-5.4); Red Cell Distribution Width 13.5 % (11.5-14.0); White Blood Count 11.2 K/mm3 (4.0-10.5)
[2019-04-12] MEDS ORDERED: Ativan 2 MG/1 ML VIAL ONE (01:13)
[2019-04-12] MEDS ORDERED: solu-MEDROL 125 MG ONE (01:13)
[2019-04-12 01:20] LABS: ALBUMIN 4.2 g/dL (3.5-5.0); ALKALINE PHOSPHATASE 100 U/L (38-126); ANION GAP 14.7 MEQ/L (5-15); BLOOD UREA NITROGEN 11 mg/dL (7-17); CHLORIDE 106 mmol/L (98-107); Carbon Dioxide 24 mmol/L (22-30); Creatinine 1 0.52 mg/dL (0.52-1.04); Glucose 121 mg/dL (74-106); NT PRO BNP 98.7 pg/mL (0-900); Potassium 3.9 mmol/L (3.5-5.1); SGOT/AST 19 U/L (14-36); SGPT/ALT 11 U/L (0-35); SODIUM 141 mmol/L (137-145); Total Protein 7.4 g/dL (6.3-8.2)
[2019-04-12 01:33] LABS: INFLUENZA A NEGATIVE (NEGATIVE); INFLUENZA B NEGATIVE (NEGATIVE); RESPIRATORY SYNCTIAL VIRUS NEGATIVE (Negative)
[2019-04-12 03:45] VITALS: O2SAT 94
[2019-04-12 04:10] VITALS: BP 108/79; PULSE 117
--- NOTE | 2019-04-12 08:53 | XRAY ---
Indication: Short of breath. Comparison: March 16, 2019. Portable chest again demonstrates normal heart and lungs. Bony thorax intact. No new/acute findings.
== END 2019-04-12 04:10 | disposition home or self-care (01) ==
LOC: ED 00:36
DX: J44.1 Chronic obstructive pulmonary disease with (acute) exacerbation (principal)
CPT/HCPCS: 36000; 36415; 71045; 80053; 83605; 83880; 85025; 87631; 93005; 93041; 94640; 94760; 96374; 96375; 99284; J2060; J2930; J7609; A9270-GY

== ENCOUNTER 2019-10-21 09:59 | Emergency (ER) | payer OTHER ==
[2019-10-21 10:12] VITALS: O2SAT 98
[2019-10-21] MEDS ORDERED: Sodium Chloride 0.9% 1000 ML 1,000 ML IV STA (10:17)
[2019-10-21] MEDS ORDERED: Pepcid 20 MG VIAL IV ONE ×2 (10:17→10:27)
[2019-10-21] MEDS ORDERED: PROTONIX 40 MG IV IV ONE ×2 (10:17→10:27)
[2019-10-21] MEDS ORDERED: GI COCKTAIL 45 ML (Maalox/Lidocaine) PO ONE (10:17)
--- NOTE | 2019-10-21 10:23 | ERPHSYRPT ---
- History of Present Illness Time Seen by Provider: 10/21/19 10:21 Historian: patient Exam Limitations: no limitations Patient Subjective Stated Complaint: Abdominal pain Triage Nursing Assessment: Patient ambulated back to ED and tranferred self to bed. Patient A+O X3. Patient's skin pink, warm and dry. Patient complains of upper abdominal pain that has gotten worse since last night. Patient's abdomen soft and round with BS X 4. Patient denies N/V or diarrhea. Patient states pain is constant, sharp pain 8/10. Physician History: Abdominal pain for few weeks. epigastric area radiate to back, soreness in throat Timing/Duration: week(s) Activities at Onset: none Abdominal Pain Onset Location: epigastric Pain Radiation: back Severity of Pain-Max: moderate Severity of Pain-Current: mild Modifying Factors: Improves With: nothing Associated Symptoms: denies symptoms Previous symptoms: no prior history Allergies/Adverse Reactions: Sulfa (Sulfonamide Antibiotics) Allergy (Intermediate, Verified 10/21/19 10:12) Hives triamcinolone acetonide [From Kenalog] Allergy (Intermediate, Verified 10/21/19 10:12) Hives Home Medications: Hydrocodone/Acetaminophen [Hydrocodone-Acetamin 10-325 mg] 1 tab PO BID 10/21/19 [History] Hx Tetanus, Diphtheria Vaccination/Date Given: No (unk) Hx Influenza Vaccination/Date Given: Yes Hx Pneumococcal Vaccination/Date Given: No Immunizations Up to Date: Yes Travel Risk - International Travel Have you traveled outside of the country in past 3 weeks: No - Coronavirus Screening Are you exhibiting any of the following symptoms?: No Close contact with a COVID-19 positive Pt in past 14-21 Days: No - Review of Systems Constitutional: No Fever, No Chills Eyes: No Symptoms Ears, Nose, & Throat: No Symptoms Respiratory: No Cough, No Dyspnea Cardiac: No Chest Pain, No Edema, No Syncope Abdominal/Gastrointestinal: Abdominal Pain, Appetite Changes, No Nausea, No Vomiting, No Diarrhea Genitourinary Symptoms: No Dysuria Musculoskeletal: No Back Pain, No Neck Pain Skin: No Rash Neurological: No Dizziness, No Focal Weakness, No Sensory Changes Psychological: No Symptoms Endocrine: No Symptoms All Other Systems: Reviewed and Negative - Past Medical History Pertinent Past Medical History: Yes Neurological History: Migraines ENT History: No Pertinent History Cardiac History: No Pertinent History Respiratory History: Asthma Endocrine Medical History: No Pertinent History Musculoskeletal History: No Pertinent History GI Medical History: GERD History: No Pertinent History Psycho-Social History: Anxiety, Depression Female Reproductive Disorders: No Pertinent History Other Medical History: chronic back pain - Past Surgical History Past Surgical History: Yes Neuro Surgical History: No Pertinent History Cardiac: No Pertinent History Respiratory: No Pertinent History Gastrointestinal: No Pertinent History Genitourinary: No Pertinent History Musculoskeletal: No Pertinent History Female Surgical History: Tubal Ligation Other Surgical History: tonsillectomy, adenoidectomy - Social History Smoking Status: Current every day smoker How long have you smoked: 36 Exposure to second hand smoke: Yes Drug Use: none Patient Lives Alone: No Significant Family History: no pertinent family hx - Female History Hx Now: No - Nursing Vital Signs Nursing Vital Signs: Initial Vital Signs Temperature 98.2 F 10/21/19 10:07 Pulse Rate 96 H 10/21/19 10:07 Respiratory Rate 18 10/21/19 10:07 Blood Pressure 124/81 10/21/19 10:07 O2 Sat by Pulse Oximetry 98 10/21/19 10:07 Pain Scale Pain Intensity 8 - Physical Exam General Appearance: no apparent distress, alert Eye Exam: PERRL/EOMI, eyes nml inspection Ears, Nose, Throat Exam: normal ENT inspection, pharynx normal, moist mucous membranes Neck Exam: normal inspection, non-tender, supple, full range of motion Respiratory Exam: normal breath sounds, lungs clear, No respiratory distress Cardiovascular Exam: regular rate/rhythm, normal heart sounds Gastrointestinal/Abdomen Exam: soft, No tenderness, No mass Back Exam: normal inspection, normal range of motion, No CVA tenderness, No vertebral tenderness Extremity Exam: normal inspection, normal range of motion, pelvis stable Neurologic Exam: alert, 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, cooperative, normal mood/affect, nml cerebellar function, sensation nml, No motor deficits Skin Exam: normal color, warm, dry SpO2: 98 Ordered Tests: Active Orders 24 hr Category Date Time Status EKG-ER Only STAT Care 10/21/19 10:17 Active OBSTR/ACUTE ABDOMEN SERIES Stat Exams 10/21/19 10:17 Taken AMYLASE Stat Lab 10/21/19 10:17 Completed CBC W DIFF Stat Lab 10/21/19 10:17 Completed CMP Stat Lab 10/21/19 10:17 Completed LIPASE Stat Lab 10/21/19 10:17 Completed Lactic Acid Stat Lab 10/21/19 10:17 Completed TROPONIN Stat Lab 10/21/19 10:17 Completed Medication Summary Generic Name Dose Route Start Last Admin Trade Name Lesli PRN Reason Stop Dose Admin Sodium Chloride 1,000 mls @ 999 mls/hr 10/21/19 10:17 10/21/19 10:34 Sodium Chloride 0.9% 1000 Ml IV 10/21/19 11:17 999 mls/hr .[id number] STA Administration Discontinued Medications Generic Name Dose Route Start Last Admin Trade Name Lesli PRN Reason Stop Dose Admin Al Hydrox/Mg Hydrox/Simethicone Confirm 10/21/19 10:29 Maalox Es 30 Ml Unit Dose Administered 10/21/19 10:30 Dose 30 ml .ROUTE .STK-MED ONE Famotidine 20 mg 10/21/19 10:17 10/21/19 10:33 Pepcid 20 Mg Vial IV 10/21/19 10:18 20 mg STAT ONE Administration Famotidine Confirm 10/21/19 10:27 Pepcid 20 Mg Vial Administered 10/21/19 10:28 Dose 20 mg IV .STK-MED ONE Sodium Chloride Confirm 10/21/19 10:29 Sodium Chloride 0.9% 1000 Ml Administered 10/21/19 10:30 Dose 1,000 mls @ ud .ROUTE .STK-MED ONE Lidocaine HCl Confirm 10/21/19 10:28 Xylocaine Hcl Viscous * Administered 10/21/19 10:29 Dose 15 ml .ROUTE .STK-MED ONE Magnesium Hydroxide 45 ml 10/21/19 10:17 10/21/19 10:33 Gi Cocktail 45 Ml (Maalox/Lidocaine) PO 10/21/19 10:18 45 ml STAT ONE Administration Pantoprazole Sodium 40 mg 10/21/19 10:17 10/21/19 10:33 Protonix 40 Mg Iv IV 10/21/19 10:18 40 mg STAT ONE Administration Pantoprazole Sodium Confirm 10/21/19 10:27 Protonix 40 Mg Iv Administered 10/21/19 10:28 Dose 40 mg IV .STK-MED ONE Lab/Rad Data: Laboratory Result Diagrams 10/21/19 10:17 10/21/19 10:17 Laboratory Results 10/21/19 10/21/19 10/21/19 Range/Units 10:17 10:17 10:17 WBC 8.4 (4.0-10.5) K/mm3 RBC 4.42 (4.1-5.4) M/mm3 Hgb 13.9 (12.0-16.0) gm/dl Hct 42.4 (35-47) % MCV 95.9 (78-100) fl MCH 31.4 (26-32) pg MCHC 32.8 (32-36) g/dl RDW 13.5 (11.5-14.0) % Plt Count 167 (150-450) K/mm3 MPV 11.8 H (7.5-11.0) fl Gran % 70.6 H (36.0-66.0) % Eos # (Auto) 0.18 (0-0.5) Absolute Lymphs (auto) 1.60 (1.0-4.6) Absolute Monos (auto) 0.69 (0.0-1.3) Lymphocytes % 19.0 L (24.0-44.0) % Monocytes % 8.2 (0.0-12.0) % Eosinophils % 2.1 (0.00-5.0) % Basophils % 0.1 (0.0-0.4) % Absolute Granulocytes 5.92 (1.4-6.9) Basophils # 0.01 (0-0.4) Sodium 138 (137-145) mmol/L Potassium 4.1 (3.5-5.1) mmol/L Chloride 107 (98-107) mmol/L Carbon Dioxide 25 (22-30) mmol/L Anion Gap 9.4 (5-15) MEQ/L BUN 11 (7-17) mg/dL Creatinine 0.55 (0.52-1.04) mg/dL Estimated GFR > 60.0 ML/MIN Glucose 94 (74-106) mg/dL Lactic Acid 0.6 (0.4-2.0) Calcium 9.6 (8.4-10.2) mg/dL Total Bilirubin 0.90 (0.2-1.3) mg/dL AST 24 (14-36) U/L ALT 12 (0-35) U/L Alkaline Phosphatase 83 (38-126) U/L Troponin I < 0.012 (0.000-0.034) ng/mL Serum Total Protein 7.6 (6.3-8.2) g/dL Albumin 4.5 (3.5-5.0) g/dL Amylase 72 (30-110) U/L Lipase 63 (23-300) U/L - Progress Progress: improved, pain not gone completely Counseled pt/family regarding: lab results, diagnosis, need for follow-up, rad results - Departure Departure Disposition: Home Clinical Impression: Gastritis and gastroduodenitis GERD (gastroesophageal reflux disease) Qualifiers: Esophagitis presence: with esophagitis Qualified Code(s): K21.0 - Gastro- esophageal reflux disease with esophagitis Condition: Stable Critical Care Time: No Referrals: DOCTOR,NO FAMILY [Primary Care Provider] - Instructions: Acid Reflux and GERD in Adults (DC) Prescriptions: Famotidine 20 mg [Pepcid 20 MG] 20 mg PO BID #60 tablet PANTOPRAZOLE 40 mg Tablet [Protonix 40MG Tablet] 40 mg PO QPM #30 tab
[2019-10-21] MEDS ORDERED: XYLOCAINE HCl Viscous ONE (10:28)
[2019-10-21] MEDS ORDERED: MAALOX ES 30 ML UNIT DOSE ONE (10:29)
[2019-10-21] MEDS ORDERED: Sodium Chloride 0.9% 1000 ML 1,000 ML ONE (10:29)
[2019-10-21 10:30] LABS: Absolute Neutrophil Ct (ANC) 5.92 (1.4-6.9); BASOPHIL % 0.1 % (0.0-0.4); Basophil (Absolute #) 0.01 (0-0.4); Eosinophil % 2.1 % (0.00-5.0); Eosinophil (Absolute #) 0.18 (0-0.5); Hematocrit 42.4 % (35-47); Hemoglobin 13.9 gm/dl (12.0-16.0); Mean Cell Volume 95.9 fl (78-100); Mean Corpuscular Hemoglobin 31.4 pg (26-32); Mean Corpuscular Hgb Concent. 32.8 g/dl (32-36); Mean Platelet Volume 11.8 fl (7.5-11.0); Monocyte (Absolute #) 0.69 (0.0-1.3); Monocytes % 8.2 % (0.0-12.0); Neutrophil % 70.6 % (36.0-66.0); Platelet Count 167 K/mm3 (150-450); Red Blood Count 4.42 M/mm3 (4.1-5.4); Red Cell Distribution Width 13.5 % (11.5-14.0); White Blood Count 8.4 K/mm3 (4.0-10.5)
[2019-10-21 10:51] LABS: ALBUMIN 4.5 g/dL (3.5-5.0); ALKALINE PHOSPHATASE 83 U/L (38-126); AMYLASE 72 U/L (30-110); ANION GAP 9.4 MEQ/L (5-15); BLOOD UREA NITROGEN 11 mg/dL (7-17); CHLORIDE 107 mmol/L (98-107); Calcium 9.6 mg/dL (8.4-10.2); Carbon Dioxide 25 mmol/L (22-30); Creatinine 1 0.55 mg/dL (0.52-1.04); Glucose 94 mg/dL (74-106); LIPASE 63 U/L (23-300); Potassium 4.1 mmol/L (3.5-5.1); SGOT/AST 24 U/L (14-36); SGPT/ALT 12 U/L (0-35); SODIUM 138 mmol/L (137-145); Total Protein 7.6 g/dL (6.3-8.2)
[2019-10-21 10:52] LABS: TROPONIN < 0.012 ng/mL (0.000-0.034)
[2019-10-21 11:42] VITALS: BP 124/83; PULSE 81
--- NOTE | 2019-10-21 19:58 | XRAY ---
Indication: Epigastric pain. Comparison: Chest April 12, 2019. 2 view abdomen demonstrates nonspecific nonobstructed bowel gas pattern. Solid organs unremarkable. Osseous structures intact with mild multilevel lumbar degenerative spondylosis. Single PA chest again demonstrates normal heart, lungs, and bony thorax. Impression: Nonacute nonobstructed abdomen. Continued normal one view chest.
== END 2019-10-21 11:52 | disposition home or self-care (01) ==
LOC: ED 09:59
DX: K21.0 Gastro-esophageal reflux disease with esophagitis (principal); R10.13 Epigastric pain
CPT/HCPCS: 36000; 36415; 74022; 80053; 82150; 83605; 83690; 84484; 85025; 93005; 96360; 96374; 96375; 99284; A9270-GY

== ENCOUNTER 2019-12-20 15:59 | Emergency (ER) | payer OTHER ==
[2019-12-20] MEDS ORDERED: MORPHINE SULFATE 4 MG INJ IV ONE ×2 (16:23→18:16)
[2019-12-20] MEDS ORDERED: MORPHINE SULFATE 4 MG INJ ONE ×2 (16:24→18:16)
[2019-12-20 16:32] LABS: Absolute Neutrophil Ct (ANC) 4.19 (1.4-6.9); BASOPHIL % 0.1 % (0.0-0.4); Basophil (Absolute #) 0.01 (0-0.4); Eosinophil % 2.6 % (0.00-5.0); Eosinophil (Absolute #) 0.18 (0-0.5); Hematocrit 43.5 % (35-47); Hemoglobin 14.2 gm/dl (12.0-16.0); Lymphocyte (Absolute #) 1.97 (1.0-4.6); Lymphocytes % 28.7 % (24.0-44.0); Mean Cell Volume 97.3 fl (78-100); Mean Corpuscular Hemoglobin 31.8 pg (26-32); Mean Corpuscular Hgb Concent. 32.6 g/dl (32-36); Mean Platelet Volume 11.9 fl (7.5-11.0); Monocyte (Absolute #) 0.52 (0.0-1.3); Monocytes % 7.6 % (0.0-12.0); Platelet Count 172 K/mm3 (150-450); Red Blood Count 4.47 M/mm3 (4.1-5.4); Red Cell Distribution Width 14.2 % (11.5-14.0); White Blood Count 6.9 K/mm3 (4.0-10.5)
[2019-12-20 17:23] LABS: Appearance CLEAR (CLEAR); Bilirubin NEGATIVE (NEGATIVE); Blood NEGATIVE Ery/ul (0-5); Epithelial Cells RARE /HPF (FEW); Glucose NEGATIVE (NEGATIVE); Ketones NEGATIVE (NEGATIVE); Leukocyte Esterase SMALL (NEGATIVE); Mucus SLIGHT /HPF (NEGATIVE); Nitrite NEGATIVE (NEGATIVE); Protein,Urine Dip NEGATIVE (Negative); Urobilinogen NEGATIVE mg/dL (0-1)
[2019-12-20 17:31] LABS: ALBUMIN 4.4 g/dL (3.5-5.0); ALKALINE PHOSPHATASE 89 U/L (38-126); ANION GAP 8.3 MEQ/L (5-15); BLOOD UREA NITROGEN 7 mg/dL (7-17); CHLORIDE 105 mmol/L (98-107); Calcium 9.6 mg/dL (8.4-10.2); Carbon Dioxide 28 mmol/L (22-30); Creatinine 1 0.63 mg/dL (0.52-1.04); EST GLOMERULAR FILTRATION RATE > 60.0 ML/MIN; Glucose 100 mg/dL (74-106); NT PRO BNP 62.8 pg/mL (0-900); Potassium 3.7 mmol/L (3.5-5.1); SGOT/AST 18 U/L (14-36); SGPT/ALT 10 U/L (0-35); SODIUM 138 mmol/L (137-145); Total Protein 7.5 g/dL (6.3-8.2)
--- NOTE | 2019-12-20 18:11 | ERPHSYRPT ---
- History of Present Illness Time Seen by Provider: 12/20/19 16:10 Source: patient Exam Limitations: no limitations Patient Subjective Stated Complaint: pt co pain to left middle back today at work, no injury, she states she got light headed after the pain started, Triage Nursing Assessment: pt alert, arrived per wc, able to get self undressed, resp easy, skin w/d/p. no edema, moves all ext well, Physician History: Patient is a 54-year-old female presents to our ED for evaluation of pain to her her left scapular area. Pain started today. 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 Pain described as an ache that is more localized. No radiation. Pain was reproduced with movement and palpation. Pain improved with rest. No associated nausea vomiting. No diaphoresis. No fever. Symptoms are mild to moderate in intensity. Patient voices no other complaints concerns at this time. Timing/Duration: today Allergies/Adverse Reactions: Sulfa (Sulfonamide Antibiotics) Allergy (Intermediate, Verified 12/20/19 16:05) Hives triamcinolone acetonide [From Kenalog] Allergy (Intermediate, Verified 12/20/19 16:05) Hives Home Medications: Hydrocodone/Acetaminophen [Hydrocodone-Acetamin 10-325 mg] 1 tab PO BID 10/21/19 [History] Cyclobenzaprine HCl [Flexeril] 1 ea DAILY 12/20/19 [History] Hx Tetanus, Diphtheria Vaccination/Date Given: No (unk) Hx Influenza Vaccination/Date Given: Yes Hx Pneumococcal Vaccination/Date Given: No Immunizations Up to Date: Yes Travel Risk - International Travel Have you traveled outside of the country in past 3 weeks: No - Coronavirus Screening Are you exhibiting any of the following symptoms?: No - Review of Systems Constitutional: No Symptoms, No Fever, No Chills Eyes: No Symptoms Ears, Nose, & Throat: No Symptoms Respiratory: No Symptoms, No Cough, No Dyspnea Cardiac: No Symptoms, No Chest Pain, No Edema, No Syncope Abdominal/Gastrointestinal: No Symptoms, No Abdominal Pain, No Nausea, No Vomiting, No Diarrhea Genitourinary Symptoms: No Symptoms, No Dysuria Musculoskeletal: No Symptoms, No Back Pain, No Neck Pain Skin: No Symptoms, No Rash Neurological: No Symptoms, No Dizziness, No Focal Weakness, No Sensory Changes Psychological: No Symptoms Endocrine: No Symptoms Hematologic/Lymphatic: No Symptoms Immunological/Allergic: No Symptoms All Other Systems: Reviewed and Negative - Past Medical History Pertinent Past Medical History: Yes Neurological History: Migraines ENT History: No Pertinent History Cardiac History: No Pertinent History Respiratory History: Asthma Endocrine Medical History: No Pertinent History Musculoskeletal History: Arthritis GI Medical History: GERD History: No Pertinent History Psycho-Social History: Anxiety, Depression Female Reproductive Disorders: No Pertinent History Other Medical History: chronic back pain - Past Surgical History Past Surgical History: Yes Neuro Surgical History: No Pertinent History Cardiac: No Pertinent History Respiratory: No Pertinent History Gastrointestinal: No Pertinent History Genitourinary: No Pertinent History Musculoskeletal: No Pertinent History Female Surgical History: Tubal Ligation Other Surgical History: tonsillectomy, adenoidectomy - Social History Smoking Status: Current every day smoker How long have you smoked: 36 Exposure to second hand smoke: Yes Drug Use: none Patient Lives Alone: No Significant Family History: no pertinent family hx - Female History Hx Last Menstrual Period: post Hx Now: No - Nursing Vital Signs Nursing Vital Signs: Initial Vital Signs Temperature 97.5 F 12/20/19 16:00 Pulse Rate 83 12/20/19 16:00 Respiratory Rate 16 12/20/19 16:00 Blood Pressure 143/109 12/20/19 16:00 O2 Sat by Pulse Oximetry 98 12/20/19 16:00 Pain Scale Pain Intensity 4 - Physical Exam General Appearance: no apparent distress, alert Eye Exam: PERRL/EOMI, eyes nml inspection Ears, Nose, Throat Exam: normal ENT inspection, TMs normal, pharynx normal, moist mucous membranes Neck Exam: normal inspection, non-tender, supple, full range of motion Respiratory Exam: normal breath sounds, lungs clear, No respiratory distress Cardiovascular Exam: regular rate/rhythm, normal heart sounds, normal peripheral pulses Gastrointestinal/Abdomen Exam: soft, normal bowel sounds, No tenderness, No mass Back Exam: normal inspection, normal range of motion, No CVA tenderness, No vertebral tenderness Extremity Exam: normal inspection, normal range of motion, pelvis stable, tenderness (Tenderness to palpation just medial to the left scapula over the rhomboid musculature. Overlying soft tissue intact. Palpation to this area reproduces symptoms. Movement of shoulder reproduces symptoms. No signs of trauma. Left upper extremity is neurovascularly intact distally. No numbness ti), No prabhakar, No calf tenderness, No deformities, No lacerations, No paralysis, No limited range of motion Neurologic Exam: alert, 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, cooperative, normal mood/affect, nml cerebellar function, nml station & gait, sensation nml, No motor deficits Skin Exam: normal color, warm, dry, No rash Lymphatic Exam: No adenopathy SpO2 Interpretation: normal SpO2: 98 O2 Delivery: Room Air - Course Nursing assessment & vital signs reviewed: Yes EKG Interpreted by Me: RATE (89), Sinus Rhythm, NORMAL AXIS, NORMAL INTERVALS - Radiology Exams Chest X-ray Interpretation: Interpreted by me (5 hilar lymph node, bibasilar atelectasis versus scarring. Normal bony thorax. Normal cardiac silhouette) T-Spine X-ray Interpretation: Interpreted by me (Osteopenia, decreased disc space, degenerative arthritis of T-spine no fractures or dislocations) Ordered Tests: Active Orders 24 hr Category Date Time Status Ply Cutter STAT Care 12/20/19 16:17 Active EKG-ER Only STAT Care 12/20/19 16:14 Active IV Insertion STAT Care 12/20/19 16:14 Active Pulse Oximetry (ED) STAT Care 12/20/19 16:14 Active CHEST 1 VIEW (PORTABLE) Stat Exams 12/20/19 16:16 Taken THORACIC SPINE (AP,LAT,SWIMM) Stat Exams 12/20/19 16:18 Taken CBC W DIFF Stat Lab 12/20/19 16:20 Completed CMP Stat Lab 12/20/19 16:20 Completed D-DIMER QUANTITATIVE Stat Lab 12/20/19 16:20 Completed MAGNESIUM Stat Lab 12/20/19 16:20 Completed NT PRO BNP Stat Lab 12/20/19 16:20 Completed TROPONIN Q3H Lab 12/20/19 16:20 Completed TROPONIN Q3H Lab 12/20/19 18:15 Completed TROPONIN Q3H Lab 12/20/19 22:30 Ordered TROPONIN Q3H Lab 12/21/19 01:30 Ordered TROPONIN Q3H Lab 12/21/19 04:30 Ordered UA W/RFX UR CULTURE Stat Lab 12/20/19 16:20 Completed Medication Summary Discontinued Medications Generic Name Dose Route Start Last Admin Trade Name Freq PRN Reason Stop Dose Admin Morphine Sulfate 4 mg 12/20/19 16:23 12/20/19 16:26 Morphine Sulfate 4 Mg Inj IV 10/15/20 16:24 4 mg STAT ONE Administration Morphine Sulfate Confirm 12/20/19 16:24 Morphine Sulfate 4 Mg Inj Administered 12/20/19 16:25 Dose 4 mg .ROUTE .STK-MED ONE Morphine Sulfate 4 mg 12/20/19 18:16 12/20/19 18:19 Morphine Sulfate 4 Mg Inj IV 12/20/19 18:17 4 mg STAT ONE Administration Morphine Sulfate Confirm 12/20/19 18:16 Morphine Sulfate 4 Mg Inj Administered 12/20/19 18:17 Dose 4 mg .ROUTE .STK-MED ONE Lab/Rad Data: Laboratory Result Diagrams 12/20/19 16:20 12/20/19 16:20 Laboratory Results 12/20/19 12/20/19 12/20/19 Range/Units 18:15 16:20 16:20 WBC (4.0-10.5) K/mm3 RBC (4.1-5.4) M/mm3 Hgb (12.0-16.0) gm/dl Hct (35-47) % MCV (78-100) fl MCH (26-32) pg MCHC (32-36) g/dl RDW (11.5-14.0) % Plt Count (150-450) K/mm3 MPV (7.5-11.0) fl Gran % (36.0-66.0) % Eos # (Auto) (0-0.5) Absolute Lymphs (auto) (1.0-4.6) Absolute Monos (auto) (0.0-1.3) Lymphocytes % (24.0-44.0) % Monocytes % (0.0-12.0) % Eosinophils % (0.00-5.0) % Basophils % (0.0-0.4) % Absolute Granulocytes (1.4-6.9) Basophils # (0-0.4) D-Dimer (215-500) ng/mL Sodium (137-145) mmol/L Potassium (3.5-5.1) mmol/L Chloride (98-107) mmol/L Carbon Dioxide (22-30) mmol/L Anion Gap (5-15) MEQ/L BUN (7-17) mg/dL Creatinine (0.52-1.04) mg/dL Estimated GFR ML/MIN Glucose (74-106) mg/dL Calcium (8.4-10.2) mg/dL Magnesium (1.6-2.3) mg/dL Total Bilirubin (0.2-1.3) mg/dL AST (14-36) U/L ALT (0-35) U/L Alkaline Phosphatase (38-126) U/L Troponin I < 0.012 < 0.012 (0.000-0.034) ng/mL NT-Pro-B Natriuret Pep (0-900) pg/mL Serum Total Protein (6.3-8.2) g/dL Albumin (3.5-5.0) g/dL Urine Color YELLOW (YELLOW) Urine Appearance CLEAR (CLEAR) Urine pH 7.0 (5-6) Ur Specific [place] 1.010 (1.005-1.025) Urine Protein NEGATIVE (Negative) Urine Ketones NEGATIVE (NEGATIVE) Urine Blood NEGATIVE (0-5) Van/ul Urine Nitrite NEGATIVE (NEGATIVE) Urine Bilirubin NEGATIVE (NEGATIVE) Urine Urobilinogen NEGATIVE (0-1) mg/dL Ur Leukocyte Esterase SMALL (NEGATIVE) Urine WBC (Auto) 3-5 (0-5) /HPF Urine RBC (Auto) NONE (0-2) /HPF U Epithel Cells (Auto) RARE (FEW) /HPF Urine Bacteria (Auto) NONE (NEGATIVE) /HPF Urine Mucus (Auto) SLIGHT (NEGATIVE) /HPF Urine Culture Reflexed NO (NO) Urine Glucose NEGATIVE (NEGATIVE) mg/dL 12/20/19 12/20/19 12/20/19 Range/Units 16:20 16:20 16:20 WBC 6.9 (4.0-10.5) K/mm3 RBC 4.47 (4.1-5.4) M/mm3 Hgb 14.2 (12.0-16.0) gm/dl Hct 43.5 (35-47) % MCV 97.3 (78-100) fl MCH 31.8 (26-32) pg MCHC 32.6 (32-36) g/dl RDW 14.2 H (11.5-14.0) % Plt Count 172 (150-450) K/mm3 MPV 11.9 H (7.5-11.0) fl Gran % 61.0 (36.0-66.0) % Eos # (Auto) 0.18 (0-0.5) Absolute Lymphs (auto) 1.97 (1.0-4.6) Absolute Monos (auto) 0.52 (0.0-1.3) Lymphocytes % 28.7 (24.0-44.0) % Monocytes % 7.6 (0.0-12.0) % Eosinophils % 2.6 (0.00-5.0) % Basophils % 0.1 (0.0-0.4) % Absolute Granulocytes 4.19 (1.4-6.9) Basophils # 0.01 (0-0.4) D-Dimer 302 (215-500) ng/mL Sodium 138 (137-145) mmol/L Potassium 3.7 (3.5-5.1) mmol/L Chloride 105 (98-107) mmol/L Carbon Dioxide 28 (22-30) mmol/L Anion Gap 8.3 (5-15) MEQ/L BUN 7 (7-17) mg/dL Creatinine 0.63 (0.52-1.04) mg/dL Estimated GFR > 60.0 ML/MIN Glucose 100 (74-106) mg/dL Calcium 9.6 (8.4-10.2) mg/dL Magnesium 2.0 (1.6-2.3) mg/dL Total Bilirubin 0.60 (0.2-1.3) mg/dL AST 18 (14-36) U/L ALT 10 (0-35) U/L Alkaline Phosphatase 89 (38-126) U/L Troponin I (0.000-0.034) ng/mL NT-Pro-B Natriuret Pep 62.8 (0-900) pg/mL Serum Total Protein 7.5 (6.3-8.2) g/dL Albumin 4.4 (3.5-5.0) g/dL Urine Color (YELLOW) Urine Appearance (CLEAR) Urine pH (5-6) Ur Specific [place] (1.005-1.025) Urine Protein (Negative) Urine Ketones (NEGATIVE) Urine Blood (0-5) Van/ul Urine Nitrite (NEGATIVE) Urine Bilirubin (NEGATIVE) Urine Urobilinogen (0-1) mg/dL Ur Leukocyte Esterase (NEGATIVE) Urine WBC (Auto) (0-5) /HPF Urine RBC (Auto) (0-2) /HPF U Epithel Cells (Auto) (FEW) /HPF Urine Bacteria (Auto) (NEGATIVE) /HPF Urine Mucus (Auto) (NEGATIVE) /HPF Urine Culture Reflexed (NO) Urine Glucose (NEGATIVE) mg/dL - Progress Progress: improved Progress Note: 12/20/19 19:52 Patient reassessed. Pain improved. Shoulder sling provided for comfort. Work- up essentially nonremarkable. D-dimer negative. Troponin negative x2. X-ray essentially nonremarkable. Patient ambulated throughout our ED. Patient felt well. No dizziness no weakness. Patient requesting discharge. Work note provided. Patient's job is labor-intensive she will require time off for recovery. Patient understands if symptoms persist worsen or she develops new concerning symptoms to return to our ED immediately. Patient agrees to follow- up with a primary care doctor within 48 hours for reevaluation. Counseled pt/family regarding: lab results, diagnosis, need for follow-up, rad results - Departure Departure Disposition: Home Clinical Impression: Muscle strain Condition: Stable Critical Care Time: No Referrals: DOCTOR,NO FAMILY [Primary Care Provider] - MATT GALLEGOS [ACTIVE STAFF] - Additional Instructions: Discharge/Care Plan PAMELA GONZALEZ was seen on 12/20/19 in the Emergency Room. The patient was counseled regarding Diagnosis,Lab results, Imaging studies, need for follow up and when to return to the Emergency Room. Prescriptions given: Discharge Note I have spoken with the patient and/or caregivers. I have explained the patient's condition, diagnosis and treatment plan based on the information available to me at this time. I have answered the patient's and/or caregiver's questions and addressed any concerns. The patient and/or caregivers have as good understanding of the patient's diagnosis, condition and treatment plan as can be expected at this point. The vital signs have been stable. The patient's condition is stable and appropriate for discharge from the emergency department. The patient will pursue further outpatient evaluation with the primary care physician or other designated or consulting physician as outlined in the discharge instructions. The patient and/or caregivers are agreeable to this plan of care and follow-up instructions have been explained in detail. The patient and/or caregivers have received these instruction. The patient/and or caregivers are aware that any significant change in condition or worsening of symptoms should prompt an immediate return to this or the closest emergency department or call 911.
[2019-12-20 19:42] VITALS: BP 123/91; PULSE 92
[2019-12-20 19:47] VITALS: O2SAT 98
--- NOTE | 2019-12-21 08:39 | XRAY ---
Indication: Back pain. No known injury. Comparison: None AP/lateral thoracic spine demonstrates 12 rib-bearing segments with mild osteopenia, minimal dextroscoliosis centered at T6, and minimal multilevel endplate spurring. No other bony, articular, or soft tissue abnormalities.
--- NOTE | 2019-12-21 08:42 | XRAY ---
Indication: Chest pain. Near syncope. Comparison: October 21, 2019. Portable chest again demonstrates normal heart and lungs with a few incidental calcified granulomas. Bony thorax intact. No new/acute findings.
== END 2019-12-20 19:55 | disposition home or self-care (01) ==
LOC: ED 15:59
DX: Z72.0 Tobacco use (principal)
CPT/HCPCS: 36000; 36415; 71045; 72072; 80053; 81001; 83735; 83880; 84484; 85025; 85379; 93005; 93041; 94760; 96374; 96376; 99284; J2270

== ENCOUNTER 2020-03-23 09:28 | Emergency (ER) | payer OTHER ==
[2020-03-23] MEDS ORDERED: Sodium Chloride 0.9% 1000 ML 1,000 ML IV STA (09:44)
[2020-03-23] MEDS ORDERED: Zofran 4 MG/2 ML VIAL IV ONE (09:44)
[2020-03-23] MEDS ORDERED: Reglan 10 MG/2 ML IV ONE (09:44)
[2020-03-23] MEDS ORDERED: Pepcid 20 MG VIAL IV ONE ×2 (09:44→09:50)
[2020-03-23] MEDS ORDERED: Zofran 4 MG/2 ML VIAL ONE (09:46)
[2020-03-23] MEDS ORDERED: Sodium Chloride 0.9% 1000 ML 1,000 ML ONE (09:46)
[2020-03-23] MEDS ORDERED: Reglan 10 MG/2 ML ONE (09:50)
[2020-03-23] MEDS ORDERED: Ativan 2 MG/1 ML VIAL ONE (10:09)
[2020-03-23 10:11] LABS: Hematocrit 37.8 % (35-47); Hemoglobin 12.2 gm/dl (12.0-16.0); Mean Cell Volume 96.7 fl (78-100); Mean Corpuscular Hemoglobin 31.2 pg (26-32); Mean Corpuscular Hgb Concent. 32.3 g/dl (32-36); Mean Platelet Volume 10.8 fl (7.5-11.0); Platelet Count 198 K/mm3 (150-450); Red Blood Count 3.91 M/mm3 (4.1-5.4); Red Cell Distribution Width 13.6 % (11.5-14.0); White Blood Count 20.5 K/mm3 (4.0-10.5)
[2020-03-23 10:14] LABS: ALBUMIN 3.6 g/dL (3.5-5.0); ALKALINE PHOSPHATASE 88 U/L (38-126); AMYLASE 45 U/L (30-110); ANION GAP 8.2 MEQ/L (5-15); BLOOD UREA NITROGEN 9 mg/dL (7-17); CHLORIDE 104 mmol/L (98-107); Carbon Dioxide 27 mmol/L (22-30); Creatinine 1 0.46 mg/dL (0.52-1.04); EST GLOMERULAR FILTRATION RATE > 60.0 ML/MIN; Glucose 95 mg/dL (74-106); LIPASE 36 U/L (23-300); Potassium 3.5 mmol/L (3.5-5.1); SGOT/AST 16 U/L (14-36); SGPT/ALT 10 U/L (0-35); SODIUM 136 mmol/L (137-145); Total Protein 6.4 g/dL (6.3-8.2)
[2020-03-23] MEDS ORDERED: Ativan 2 MG/1 ML VIAL IV ONE (10:17)
[2020-03-23 10:18] LABS: Appearance SLIGHTLY CLOUDY (CLEAR); Bacteria RARE /HPF (NEGATIVE); Bilirubin NEGATIVE (NEGATIVE); Blood MODERATE Ery/ul (0-5); Epithelial Cells RARE /HPF (FEW); Glucose NEGATIVE (NEGATIVE); Ketones NEGATIVE (NEGATIVE); Leukocyte Esterase SMALL (NEGATIVE); Nitrite NEGATIVE (NEGATIVE); Protein,Urine Dip NEGATIVE (Negative); RBC 26-50 /HPF (0-2); Specific Gravity 1.009 (1.005-1.025); Urobilinogen NEGATIVE mg/dL (0-1); WBC 26-50 /HPF (0-5)
[2020-03-23] MEDS ORDERED: Zosyn 3.375 GM Vial 3.375 GM in Sodium Chloride 100ML MINI-BAG PLUS 100 ML IV ONE (11:56)
[2020-03-23] MEDS ORDERED: LEVOFLOXACIN 750MG/150ML D5W 750 MG/150 ML BAG IV STA (11:56)
--- NOTE | 2020-03-23 12:07 | ERPHSYRPT ---
- History of Present Illness Time Seen by Provider: 03/23/20 09:36 Patient Subjective Stated Complaint: abd pain and emesis Triage Nursing Assessment: pt to ED c/o LUJAN, abd pain and vomiting x 2 days. rates 7/10 pain in head, denies urinary or bowel problems. reports she was recently dx with lung CA. just after having radiation 3 days ago she began feeling nauseous and vomiting there after. states she has attempted to used zofran with no relief. Physician History: 55 years old female with recently diagnosed small cell lung cancer have received 1 dose of chemo and radiation, tobacco abuse presented in the ER with chief complaint of nausea vomiting upper abdominal pain and increasing shortness of breath and chest tightness. Patient reports minimal productive cough and shortness of breath with lying down. Patient report multiple episodes of nonprojectile, nonbilious vomiting with no hematemesis associated upper abdominal pain more on the right side. Denies any fever or chills but has feeling of fatigue malaise. She has a decreased oral intake and feels de hydrated. Timing/Duration: day(s) (3), gradual onset, worse Severity: moderate Associated Symptoms: nausea, vomiting, abdominal pain, shortness of breath, cough, chest pain, malaise, No fever Allergies/Adverse Reactions: Sulfa (Sulfonamide Antibiotics) Allergy (Intermediate, Verified 03/23/20 09:45) Hives triamcinolone acetonide [From Kenalog] Allergy (Intermediate, Verified 03/23/20 09:45) Hives Home Medications: Hydrocodone/Acetaminophen [Hydrocodone-Acetamin 10-325 mg] 1 tab PO BID 10/21/19 [History] Albuterol 1 puff IH DAILY PRN PRN 03/23/20 [History] Ondansetron ODT 4 MG [Zofran Odt 4 mg] 4 mg PO DAILY PRN PRN 03/23/20 [History] Hx Tetanus, Diphtheria Vaccination/Date Given: No (unk) Hx Influenza Vaccination/Date Given: Yes Hx Pneumococcal Vaccination/Date Given: No Travel Risk - International Travel Have you traveled outside of the country in past 3 weeks: No - Coronavirus Screening Are you exhibiting any of the following symptoms?: No Close contact with a COVID-19 positive Pt in past 14-21 Days: No - Review of Systems Constitutional: Malaise, Weakness Eyes: No Symptoms Ears, Nose, & Throat: No Symptoms Respiratory: Cough, Dyspnea, Wheezing Abdominal/Gastrointestinal: Abdominal Pain, Nausea, Vomiting Genitourinary Symptoms: No Symptoms Musculoskeletal: Myalgias Neurological: No Symptoms Psychological: No Symptoms Endocrine: No Symptoms Hematologic/Lymphatic: No Symptoms Immunological/Allergic: No Symptoms - Past Medical History Pertinent Past Medical History: Yes Neurological History: Migraines ENT History: No Pertinent History Cardiac History: No Pertinent History Respiratory History: Asthma, Lung Cancer Endocrine Medical History: No Pertinent History Musculoskeletal History: Arthritis GI Medical History: GERD History: No Pertinent History Psycho-Social History: Anxiety, Depression Female Reproductive Disorders: No Pertinent History Other Medical History: chronic back pain - Past Surgical History Past Surgical History: Yes Neuro Surgical History: No Pertinent History Cardiac: No Pertinent History Respiratory: No Pertinent History Gastrointestinal: No Pertinent History Genitourinary: No Pertinent History Musculoskeletal: No Pertinent History Female Surgical History: Tubal Ligation Other Surgical History: port in R upper chest for chemo - Social History Smoking Status: Current every day smoker How long have you smoked: 36 Exposure to second hand smoke: Yes Drug Use: none Patient Lives Alone: No Significant Family History: no pertinent family hx - Female History Hx Now: No (Y) - Nursing Vital Signs Nursing Vital Signs: Initial Vital Signs Temperature 98.2 F 03/23/20 09:35 Pulse Rate 110 H 03/23/20 09:35 Respiratory Rate 20 03/23/20 09:35 Blood Pressure 125/78 03/23/20 09:35 O2 Sat by Pulse Oximetry 98 03/23/20 09:35 Pain Scale Pain Intensity 7 - Physical Exam General Appearance: no apparent distress, alert, anxiety Eye Exam: PERRL/EOMI, eyes nml inspection Ears, Nose, Throat Exam: pharyngeal erythema Neck Exam: normal inspection, supple, full range of motion Respiratory Exam: diminished breath sounds, crackles/rales, rhonchi, wheezing Cardiovascular Exam: normal heart sounds, tachycardia Gastrointestinal/Abdomen Exam: soft, normal bowel sounds, tenderness (Minimal tenderness in epigastric and right side upper abdomen) Back Exam: normal inspection, normal range of motion Extremity Exam: normal inspection, normal range of motion Neurologic Exam: alert, 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, cooperative Skin Exam: normal color SpO2 Interpretation: normal SpO2: 98 O2 Delivery: Room Air Ordered Tests: Active Orders 24 hr Category Date Time Status EKG-ER Only STAT Care 03/23/20 12:07 Active IV Insertion STAT Care 03/23/20 09:44 Active ABDOMEN AND PELVIS W CONTRAST [CT] Stat Exams 03/23/20 09:44 Taken CHEST WITH CONTRAST [CT] Routine Exams 03/23/20 10:54 Taken AMYLASE Stat Lab 03/23/20 08:45 Completed CBC W DIFF Stat Lab 03/23/20 08:45 Completed CMP Stat Lab 03/23/20 08:45 Completed CULTURE,URINE Stat Lab 03/23/20 09:53 Received LIPASE Stat Lab 03/23/20 08:45 Completed Manual Differential NC Stat Lab 03/23/20 08:45 Completed TROPONIN Q3H Lab 03/23/20 08:45 Completed TROPONIN Q3H Lab 03/23/20 12:45 Ordered TROPONIN Q3H Lab 03/23/20 15:45 Ordered TROPONIN Q3H Lab 03/23/20 18:45 Ordered TROPONIN Q3H Lab 03/23/20 21:45 Ordered UA W/RFX UR CULTURE Stat Lab 03/23/20 09:53 Completed Respiratory MDI STAT RT 03/23/20 12:57 Active Medication Summary Generic Name Dose Route Start Last Admin Trade Name Freq PRN Reason Stop Dose Admin Levofloxacin/Dextrose 750 mg in 150 mls @ 100 mls/hr 03/23/20 11:56 03/23/20 12:33 Levofloxacin 750mg/150ml D5w IV 03/23/20 13:25 100 ml/hr STAT STA 100 mls/hr Administration Discontinued Medications Generic Name Dose Route Start Last Admin Trade Name Freq PRN Reason Stop Dose Admin Albuterol Sulfate 4 puff 03/23/20 19:00 03/23/20 12:58 Ventolin Common Canister IH 04/22/20 18:59 4 puff BIDRT DARVIN Administration Famotidine 20 mg 03/23/20 09:44 03/23/20 09:55 Pepcid 20 Mg Vial IV 03/23/20 09:45 20 mg STAT ONE Administration Famotidine Confirm 03/23/20 09:50 Pepcid 20 Mg Vial Administered 03/23/20 09:51 Dose 20 mg IV .STK-MED ONE Sodium Chloride 1,000 mls @ 999 mls/hr 03/23/20 09:44 03/23/20 11:01 Sodium Chloride 0.9% 1000 Ml IV 03/23/20 10:44 Infused .Q1H1M STA Infusion Sodium Chloride Confirm 03/23/20 09:46 Sodium Chloride 0.9% 1000 Ml Administered 03/23/20 09:47 Dose 1,000 mls @ ud .ROUTE .STK-MED ONE Piperacillin Sod/Tazobactam 100 mls @ 200 mls/hr 03/23/20 11:56 Sod 3.375 gm/ Sodium Chloride IV 03/23/20 12:25 STAT ONE Levofloxacin/Dextrose Confirm 03/23/20 12:32 Levofloxacin 750mg/150ml D5w Administered 03/23/20 12:33 Dose 750 mg in 150 mls @ ud IV .STK-MED ONE Lorazepam Confirm 03/23/20 10:09 Ativan 2 Mg/1 Ml Vial Administered 03/23/20 10:10 Dose 2 mg .ROUTE .STK-MED ONE Lorazepam 1 mg 03/23/20 10:17 03/23/20 10:18 Ativan 2 Mg/1 Ml Vial IV 03/23/20 10:18 1 mg STAT ONE Administration Metoclopramide HCl 10 mg 03/23/20 09:44 03/23/20 09:54 Reglan 10 Mg/2 Ml IV 03/23/20 09:45 10 mg STAT ONE Administration Metoclopramide HCl Confirm 03/23/20 09:50 Reglan 10 Mg/2 Ml Administered 03/23/20 09:51 Dose 10 mg .ROUTE .STK-MED ONE Ondansetron HCl 4 mg 03/23/20 09:44 03/23/20 09:48 Zofran 4 Mg/2 Ml Vial IV 03/23/20 09:45 4 mg STAT ONE Administration Ondansetron HCl Confirm 03/23/20 09:46 Zofran 4 Mg/2 Ml Vial Administered 03/23/20 09:47 Dose 4 mg .ROUTE .STK-MED ONE Lab/Rad Data: Laboratory Result Diagrams 03/23/20 08:45 03/23/20 08:45 Laboratory Results 03/23/20 03/23/20 03/23/20 Range/Units 09:53 08:45 08:45 WBC (4.0-10.5) K/mm3 RBC (4.1-5.4) M/mm3 Hgb (12.0-16.0) gm/dl Hct (35-47) % MCV (78-100) fl MCH (26-32) pg MCHC (32-36) g/dl RDW (11.5-14.0) % Plt Count (150-450) K/mm3 MPV (7.5-11.0) fl Sodium 136 L (137-145) mmol/L Potassium 3.5 (3.5-5.1) mmol/L Chloride 104 (98-107) mmol/L Carbon Dioxide 27 (22-30) mmol/L Anion Gap 8.2 (5-15) MEQ/L BUN 9 (7-17) mg/dL Creatinine 0.46 L (0.52-1.04) mg/dL Estimated GFR > 60.0 ML/MIN Glucose 95 (74-106) mg/dL Calcium 9.0 (8.4-10.2) mg/dL Total Bilirubin 1.10 (0.2-1.3) mg/dL AST 16 (14-36) U/L ALT 10 (0-35) U/L Alkaline Phosphatase 88 (38-126) U/L Troponin I < 0.012 (0.000-0.034) ng/mL Serum Total Protein 6.4 (6.3-8.2) g/dL Albumin 3.6 (3.5-5.0) g/dL Amylase 45 (30-110) U/L Lipase 36 (23-300) U/L Urine Color YELLOW (YELLOW) Urine Appearance SLIGHTLY CLOUDY (CLEAR) Urine pH 8.0 (5-6) Ur Specific Matthews 1.009 (1.005-1.025) Urine Protein NEGATIVE (Negative) Urine Ketones NEGATIVE (NEGATIVE) Urine Blood MODERATE (0-5) Van/ul Urine Nitrite NEGATIVE (NEGATIVE) Urine Bilirubin NEGATIVE (NEGATIVE) Urine Urobilinogen NEGATIVE (0-1) mg/dL Ur Leukocyte Esterase SMALL (NEGATIVE) Urine WBC (Auto) 26-50 (0-5) /HPF Urine RBC (Auto) 26-50 (0-2) /HPF U Epithel Cells (Auto) RARE (FEW) /HPF Urine Bacteria (Auto) RARE (NEGATIVE) /HPF Urine Culture Reflexed YES (NO) Urine Glucose NEGATIVE (NEGATIVE) mg/dL 03/23/20 Range/Units 08:45 WBC 20.5 H (4.0-10.5) K/mm3 RBC 3.91 L (4.1-5.4) M/mm3 Hgb 12.2 (12.0-16.0) gm/dl Hct 37.8 (35-47) % MCV 96.7 (78-100) fl MCH 31.2 (26-32) pg MCHC 32.3 (32-36) g/dl RDW 13.6 (11.5-14.0) % Plt Count 198 (150-450) K/mm3 MPV 10.8 (7.5-11.0) fl Sodium (137-145) mmol/L Potassium (3.5-5.1) mmol/L Chloride (98-107) mmol/L Carbon Dioxide (22-30) mmol/L Anion Gap (5-15) MEQ/L BUN (7-17) mg/dL Creatinine (0.52-1.04) mg/dL Estimated GFR ML/MIN Glucose (74-106) mg/dL Calcium (8.4-10.2) mg/dL Total Bilirubin (0.2-1.3) mg/dL AST (14-36) U/L ALT (0-35) U/L Alkaline Phosphatase (38-126) U/L Troponin I (0.000-0.034) ng/mL Serum Total Protein (6.3-8.2) g/dL Albumin (3.5-5.0) g/dL Amylase (30-110) U/L Lipase (23-300) U/L Urine Color (YELLOW) Urine Appearance (CLEAR) Urine pH (5-6) Ur Specific Matthews (1.005-1.025) Urine Protein (Negative) Urine Ketones (NEGATIVE) Urine Blood (0-5) Van/ul Urine Nitrite (NEGATIVE) Urine Bilirubin (NEGATIVE) Urine Urobilinogen (0-1) mg/dL Ur Leukocyte Esterase (NEGATIVE) Urine WBC (Auto) (0-5) /HPF Urine RBC (Auto) (0-2) /HPF U Epithel Cells (Auto) (FEW) /HPF Urine Bacteria (Auto) (NEGATIVE) /HPF Urine Culture Reflexed (NO) Urine Glucose (NEGATIVE) mg/dL - Progress Progress: re-examined Progress Note: 03/23/20 12:30 55 years old with small cell lung cancer is evaluated for vomiting shortness of breath upper abdominal pain. She is given fluid bolus and Zofran along with Reglan, on reevaluation she is feeling better. She still have shortness of breath. She has decreased/absent breath sounds in the left lung. I have obta ined CT which showed large left pleural effusion and left lower lobe bronchial occlusion with collapse after left lower lobe and patchy airspace disease in the left upper lobe. She is started broad-spectrum antibiotics. I believe patient needs inpatient evaluation with pleurocentesis and possibly pulmonology consultation patient has been doing follow-up with [facility].she also has a white count of 20 and grossly unremarkable chemistries otherwise. CT abdomen pelvis with contrast is negative. [facility] Dr. Jorje Silva is contacted and patient is accepted for transfer. Discussed with : Other Counseled pt/family regarding: lab results, diagnosis, need for follow-up, rad results, smoking cessation - Departure Departure Disposition: Transfer Clinical Impression: Pleural effusion, Bronchial obstruction Pneumonia Qualifiers: Pneumonia type: due to unspecified organism Laterality: left Lung location: unspecified part of lung Qualified Code(s): J18.9 - Pneumonia, unspecified organism Vomiting Qualifiers: Vomiting type: unspecified Vomiting Intractability: non-intractable Nausea presence: with nausea Qualified Code(s): R11.2 - Nausea with vomiting, unspecified Condition: Fair Critical Care Time: Yes Critical Care Time(excluding separately billable procedures): Critical 30-74 mins Referrals: MATT GALLEGOS [Primary Care Provider] -
[2020-03-23] MEDS ORDERED: LEVOFLOXACIN 750MG/150ML D5W 750 MG/150 ML BAG IV ONE (12:32)
[2020-03-23 14:20] VITALS: BP 112/80; PULSE 113; O2SAT 99
--- NOTE | 2020-03-23 18:27 | XRAY ---
Indication: Left chest and right abdomen pain. History left lung small cell carcinoma. Multiple contiguous axial images obtained through the chest using 80 cc of Isovue 370 contrast. Comparison: February 12, 2020. Dramatic worsening left effusion with complete left lower lobe atelectasis occupying more than 50% of the left hemithorax. New patchy left upper lobe airspace disease. Posterior peripheral left upper lobe masslike opacity appears unchanged. Right lung remains clear. Heart is not enlarged. New right Port-A-Cath with catheter tip in the SVC. Aorta remains normal in course and caliber. Again bulky mediastinal and left hilar lymphadenopathy probably accounts for postobstructive left lower lobe atelectasis. Again largest focus is subcarinal at least 4.1 x 5.3 cm. Bony thorax intact again with minimal degenerative changes throughout the spine. CT abdomen reported separately. Impression: 1. Interval worsening moderate left lung effusion and new left upper lobe airspace disease. 2. Stable left upper lobe masslike opacity presumed known malignancy. 3. Grossly stable mediastinal and left hilar lymphadenopathy with mass effect and now left lower lobe postobstructive atelectasis. Comment: Preliminary interpretation was made by [facility]. No critical discrepancy.
--- NOTE | 2020-03-23 18:31 | XRAY ---
Indication: Left chest and right abdomen pain. History left lung small cell carcinoma. Multiple contiguous axial images obtained through the abdomen and pelvis using 80 cc Isovue 370 contrast only. Comparison: September 26, 2012. CT chest reported separately. Noncontrasted stomach and bowel loops appear nonobstructed. Normal appendix. Again small nonspecific cul-de-sac fluid. No walled off fluid collection or free air. Remaining liver, gallbladder, pancreas, spleen, adrenal glands, kidneys, ureters, bladder, and uterus appear unremarkable. There remains mild aortoiliac calcifications. No AAA or pathologic retroperitoneal lymphadenopathy. Osseous structures intact again with L3 Schmorl node and remote L4 compression fracture. Impression: 1. Again small nonspecific cul-de-sac fluid and chronic bony findings. 2. Remaining CT abdomen/pelvis with contrast exam is negative. Comment: Preliminary interpretation was made by [facility]. No critical discrepancy.
[2020-03-23] MEDS ORDERED: VENTOLIN COMMON CANISTER IH SCH (19:00)
== END 2020-03-23 16:37 | disposition short-term general hospital (02) ==
LOC: ED 09:28
DX: J90 Pleural effusion, not elsewhere classified (principal); J98.09 Other diseases of bronchus, not elsewhere classified; J18.9 Pneumonia, unspecified organism; R11.2 Nausea with vomiting, unspecified; R10.9 Unspecified abdominal pain; R11.10 Vomiting, unspecified; R51.9 Headache, unspecified; C34.90 Malignant neoplasm of unspecified part of unspecified bronchus or lung; R06.02 Shortness of breath; R05 Cough; R07.89 Other chest pain
CPT/HCPCS: 36000; 36415; 71260; 74177; 80053; 81001; 82150; 83690; 84484; 85025; 87077; 87086; 87186; 93005; 94640; 96360; 96365; 96367; 96374; 96375; 99285; 99291; J1956; J2060; J2405; A9270-GY

== ENCOUNTER 2020-04-13 19:24 | Observation (INO) | payer SELFPAY ==
--- NOTE | 2020-04-13 19:28 | ERPHSYRPT ---
- History of Present Illness Time Seen by Provider: 04/13/20 19:28 Source: patient Exam Limitations: no limitations Physician History: Today pt has had dry heaves and intermittent generalized achy abdominal pain lasting about 2 seconds per episode up to 3/10 in severity. For the past hour pt has had shortness of air and a mild vertex headache. Pt denies diarrhea, fever, sore throat, chest pain. Allergies/Adverse Reactions: Sulfa (Sulfonamide Antibiotics) Allergy (Intermediate, Verified 04/13/20 23:35) Hives triamcinolone acetonide [From Kenalog] Allergy (Intermediate, Verified 04/13/20 23:35) Hives Home Medications: Hydrocodone/Acetaminophen [Hydrocodone-Acetamin 10-325 mg] 1 tab PO BID 10/21/19 [History] Albuterol 2 puff IH BID PRN PRN 03/23/20 [History] Ondansetron ODT 4 MG [Zofran Odt 4 mg] 4 mg PO Q6HPRN PRN 03/23/20 [History] Cephalexin Monohydrate [Cephalexin] 500 mg PO TID 04/14/20 [History] Cyclobenzaprine HCl 5 mg PO BIDPRN PRN 04/14/20 [History] Prochlorperazine Maleate 10 mg [Compazine 10 mg] 10 mg PO Q2H/PRN PRN 04/14/20 [History] Hx Tetanus, Diphtheria Vaccination/Date Given: No (unk) Hx Influenza Vaccination/Date Given: Yes Hx Pneumococcal Vaccination/Date Given: No Travel Risk - International Travel Have you traveled outside of the country in past 3 weeks: No - Coronavirus Screening Are you exhibiting any of the following symptoms?: Yes Symptoms: Shortness of Breath, Vomiting/Diarrhea Close contact with a COVID-19 positive Pt in past 14-21 Days: No - Review of Systems Constitutional: No Fever Ears, Nose, & Throat: No Throat Pain Respiratory: Dyspnea Cardiac: No Chest Pain Abdominal/Gastrointestinal: Abdominal Pain, Other (dry heaves today), No Diarrhea Neurological: Headache All Other Systems: Reviewed and Negative - Past Medical History Pertinent Past Medical History: Yes Neurological History: Migraines ENT History: No Pertinent History Cardiac History: No Pertinent History Respiratory History: Asthma, Lung Cancer Endocrine Medical History: No Pertinent History Musculoskeletal History: Arthritis GI Medical History: GERD History: No Pertinent History Psycho-Social History: Anxiety, Depression Female Reproductive Disorders: No Pertinent History Other Medical History: chronic back pain - Past Surgical History Past Surgical History: Yes Neuro Surgical History: No Pertinent History Cardiac: No Pertinent History Respiratory: No Pertinent History Gastrointestinal: No Pertinent History Genitourinary: No Pertinent History Musculoskeletal: No Pertinent History Female Surgical History: Tubal Ligation Other Surgical History: port in R upper chest for chemo - Social History Smoking Status: Current every day smoker How long have you smoked: 36 Exposure to second hand smoke: Yes Drug Use: none Patient Lives Alone: No Significant Family History: no pertinent family hx - Nursing Vital Signs Nursing Vital Signs: Initial Vital Signs Temperature 98.7 F 04/13/20 19:25 Pulse Rate 122 H 04/13/20 19:25 Respiratory Rate 34 H 04/13/20 19:25 Blood Pressure 135/89 04/13/20 19:25 O2 Sat by Pulse Oximetry 100 04/13/20 19:25 Pain Scale Pain Intensity 2 - Physical Exam General Appearance: alert, anxiety Eye Exam: PERRL/EOMI Ears, Nose, Throat Exam: normal pharynx, No abnormal TM (R), No abnormal TM (L) Neck Exam: normal inspection Respiratory Exam: normal breath sounds Cardiovascular/Chest Exam: tachycardia Abdominal/Gastrointestinal Exam: soft, normal bowel sounds Extremity Exam: No pedal edema Peripheral Pulses Exam: dorsalis-pedis (R): 2+, dorsalis-pedis (L): 2+ Neurologic Exam: alert, cooperative Skin Exam: warm, dry SpO2 Interpretation: normal SpO2: 100 O2 Delivery: Room Air - Course Nursing assessment & vital signs reviewed: Yes EKG Interpreted by Me: RATE ([id number]), Sinus Tach, NORMAL AXIS, NORMAL INTERVALS - Radiology Exams Chest X-ray Interpretation: Discussed w/ radiologist, Teleradiologist Report (Stable right Mediport catheter. Grossly stable 2.3 x 1.8 cm residual nodule or scar in the left upper lobe. Continued mild interstitial opacities in the left perihilar area suggesting possible rediation pneumonitis.) - CT Exams Abdomen/Pelvis CT Interpretation: Tele-radiologist Report (Stable nonspecific free fluid in the dependent portion of the pelvis. Resolution of large left pleural fluid collection and left lower lobe compressive atelectasis.) Ordered Tests: Active Orders 24 hr Category Date Time Status Bedrest ROUTINE Activity 04/13/20 23:26 Active Customer Service Analyst STAT Care 04/13/20 19:36 Completed Code Status Order ROUTINE Care 04/13/20 23:26 Active EKG-ER Only STAT Care 04/13/20 19:35 Completed IV Care Q6H Care 04/13/20 23:26 Active IV Insertion STAT Care 04/13/20 19:35 Completed Intake and Output Q12H Care 04/13/20 23:[address] in Observation ROUTINE Care 04/13/20 23:26 Active Pulse Oximetry (ED) STAT Care 04/13/20 19:35 Completed Telemetry q6h Care 04/13/20 23:26 Active Vital Signs Q4H Care 04/13/20 23:26 Active Weight,Daily 0600 Care 04/13/20 23:26 Active NPO Diet 04/13/20 23:27 Active ABDOMEN AND PELVIS W CONTRAST [CT] Stat Exams 04/13/20 19:38 Taken CHEST 2 VIEWS (PA AND LAT) Stat Exams 04/13/20 19:36 Taken AMYLASE Stat Lab 04/13/20 19:42 Completed BLOOD CULTURE Stat Lab 04/13/20 20:45 Received CBC W DIFF AM.LAB Lab 04/14/20 04:30 Completed CBC W DIFF Stat Lab 04/13/20 19:42 Results CMP AM.LAB Lab 04/14/20 04:30 Completed CMP Stat Lab 04/13/20 19:42 Completed CULTURE,SPUTUM Stat Lab 04/13/20 21:42 Ordered D-DIMER QUANTITATIVE Stat Lab 04/13/20 19:42 Completed LIPASE Stat Lab 04/13/20 19:42 Completed Lactic Acid Stat Lab 04/13/20 20:15 Completed MAGNESIUM Stat Lab 04/13/20 19:42 Completed Manual Differential NC Stat Lab 04/13/20 19:42 Results NT PRO BNP Stat Lab 04/13/20 19:42 Completed PROTIME WITH INR AM.LAB Lab 04/14/20 04:30 Completed PROTIME WITH INR Stat Lab 04/13/20 19:30 Completed PTT AM.LAB Lab 04/15/20 04:00 Ordered PTT Stat Lab 04/13/20 19:30 Completed Pathologist Review Stat Lab 04/13/20 19:42 Results TROPONIN Q3H Lab 04/13/20 19:42 Completed TROPONIN Q3H Lab 04/13/20 22:56 Completed TROPONIN Q3H Lab 04/14/20 02:08 Completed TROPONIN Q3H Lab 04/14/20 04:30 Completed TROPONIN Q3H Lab 04/14/20 07:45 Ordered UA W/RFX UR CULTURE Stat Lab 04/13/20 21:42 Completed VENOUS BLOOD GAS Stat Lab 04/13/20 20:15 Completed EKG REPEAT IN AM RT 04/13/20 23:26 Completed Oxygen Nasal Cannula 2 lpm RT 04/13/20 23:26 Active Pulse Oximetry CONTINUOUS RT 04/13/20 23:26 Active Respiratory Therapy Consult ROUTINE RT 04/13/20 23:26 Completed Medication Summary Generic Name Dose Route Start Last Admin Trade Name Freq PRN Reason Stop Dose Admin Albuterol Sulfate 2 puff 04/14/20 07:00 04/14/20 06:44 Ventolin Common Canister IH 05/14/20 06:59 2 puff BIDRT DARVIN Administration Enoxaparin Sodium 70 mg 04/13/20 23:26 04/14/20 00:12 Enoxaparin Sodium SQ 05/13/20 23:25 Not Given Q12H DARVIN Sodium Chloride 1,000 mls @ 100 mls/hr 04/13/20 23:26 04/14/20 06:32 Sodium Chloride 0.9% 1000 Ml IV 05/13/20 23:25 100 mls/hr .Q10H DARVIN Administration Azithromycin 500 mg in 250 mls @ 250 mls/hr 04/14/20 10:00 Zithromax 500 Mg/ 250 Ml Nacl Premix IV 05/14/20 09:59 Q24H10 DARVIN Ceftriaxone Sodium/Dextrose 1 g in 50 mls @ 100 mls/hr 04/14/20 10:00 Rocephin 1 Gm-D5w 50 Ml Bag IV 05/14/20 09:59 Q24H10 DARVIN Morphine Sulfate 2 mg 04/13/20 23:26 04/14/20 00:43 Morphine Sulfate 2 Mg Inj IV 04/18/20 23:25 2 mg Q4H PRN PRN Administration PAIN Ondansetron HCl 4 mg 04/13/20 23:26 04/14/20 03:35 Zofran 4 Mg/2 Ml Vial IV 05/13/20 23:25 4 mg Q6H PRN PRN Administration NAUSEA/VOMITING Discontinued Medications Generic Name Dose Route Start Last Admin Trade Name Lesli PRN Reason Stop Dose Admin Enoxaparin Sodium 70 mg 04/13/20 21:32 04/13/20 21:53 Enoxaparin Sodium SQ 04/13/20 21:33 70 mg STAT ONE Administration Enoxaparin Sodium Confirm 04/13/20 21:53 Enoxaparin Sodium Administered 04/13/20 21:54 Dose 80 mg SQ .STK-MED ONE Fentanyl Citrate 100 mcg 04/13/20 21:50 04/13/20 21:54 Sublimaze 100 Mcg/2 Ml IV 04/13/20 21:51 100 mcg STAT ONE Administration Fentanyl Citrate Confirm 04/13/20 21:53 Sublimaze 100 Mcg/2 Ml Administered 04/13/20 21:54 Dose 100 mcg .ROUTE .STK-MED ONE Sodium Chloride 1,000 mls @ 100 mls/hr 04/13/20 19:45 04/13/20 19:49 Sodium Chloride 0.9% 1000 Ml IV 05/13/20 19:44 100 mls/hr .Q10H DARVIN Administration Sodium Chloride 1,000 mls @ 999 mls/hr 04/13/20 19:49 04/13/20 21:44 Sodium Chloride 0.9% 1000 Ml IV 04/13/20 20:49 Infused .Q1H1M STA Infusion Ceftriaxone Sodium/Dextrose 1 g in 50 mls @ 100 mls/hr 04/13/20 20:08 04/13/20 21:44 Rocephin 1 Gm-D5w 50 Ml Bag IV 04/13/20 20:37 Infused STAT STA Infusion Azithromycin 500 mg in 250 mls @ 250 mls/hr 04/13/20 20:08 04/13/20 22:47 Zithromax 500 Mg/ 250 Ml Nacl Premix IV 04/13/20 21:07 Infused STAT STA Infusion Azithromycin Confirm 04/13/20 20:47 Zithromax 500 Mg/ 250 Ml Nacl Premix Administered 04/13/20 20:48 Dose 500 mg in 250 mls @ ud IV .STK-MED ONE Ceftriaxone Sodium/Dextrose Confirm 04/13/20 20:47 Rocephin 1 Gm-D5w 50 Ml Bag Administered 04/13/20 20:48 Dose 1 g in 50 mls @ ud IV .STK-MED ONE Sodium Chloride Confirm 04/13/20 19:47 Sodium Chloride 0.9% 1000 Ml Administered 04/13/20 19:48 Dose 1,000 mls @ ud .ROUTE .STK-MED ONE Sodium Chloride Confirm 04/13/20 20:47 Sodium Chloride 0.9% 1000 Ml Administered 04/13/20 20:48 Dose 1,000 mls @ ud .ROUTE .STK-MED ONE Lorazepam 1 mg 04/13/20 20:44 04/13/20 20:51 Ativan 1 Mg PO 04/13/20 20:45 1 mg STAT ONE Administration Lorazepam Confirm 04/13/20 20:47 Ativan 1 Mg Administered 04/13/20 20:48 Dose 1 mg .ROUTE .STK-MED ONE Lorazepam 1 mg 04/13/20 21:31 04/13/20 21:33 Ativan 1 Mg PO 04/13/20 21:32 1 mg STAT ONE Administration Lorazepam Confirm 04/13/20 21:33 Ativan 1 Mg Administered 04/13/20 21:34 Dose 1 mg .ROUTE .STK-MED ONE Morphine Sulfate 2 mg 04/13/20 19:38 04/13/20 19:48 Morphine Sulfate 2 Mg Inj IV 04/13/20 19:39 2 mg STAT ONE Administration Morphine Sulfate Confirm 04/13/20 19:47 Morphine Sulfate 2 Mg Inj Administered 04/13/20 19:48 Dose 2 mg .ROUTE .STK-MED ONE Ondansetron HCl 4 mg 04/13/20 19:38 04/13/20 19:48 Zofran 4 Mg/2 Ml Vial IV 04/13/20 19:39 4 mg STAT ONE Administration Ondansetron HCl Confirm 04/13/20 19:47 Zofran 4 Mg/2 Ml Vial Administered 04/13/20 19:48 Dose 4 mg .ROUTE .STK-MED ONE Ondansetron HCl 4 mg 04/13/20 21:27 04/13/20 21:32 Zofran 4 Mg/2 Ml Vial IV 04/13/20 21:28 4 mg STAT ONE Administration Ondansetron HCl Confirm 04/13/20 21:27 Zofran 4 Mg/2 Ml Vial Administered 04/13/20 21:28 Dose 4 mg .ROUTE .STK-MED ONE Lab/Rad Data: Laboratory Result Diagrams 04/13/20 19:42 04/13/20 19:42 Laboratory Results 04/13/20 04/13/20 04/13/20 Range/Units 22:56 21:44 21:42 WBC (4.0-10.5) K/mm3 RBC (4.1-5.4) M/mm3 Hgb (12.0-16.0) gm/dl Hct (35-47) % MCV (78-100) fl MCH (26-32) pg MCHC (32-36) g/dl RDW (11.5-14.0) % Plt Count (150-450) K/mm3 MPV (7.5-11.0) fl Segmented Neutrophils (36.0-66.0) % Band Neutrophils (0.0-2.0) % Lymphocytes (Manual) (24-44) % Nucleated RBCs % Platelet Estimate (NORMAL) RBC Morphology Smear Path Review PT (9.95-12.35) SECONDS INR (0.8-3.0) APTT (25.3-37.0) SECONDS D-Dimer (215-500) ng/mL pO2/FiO2 Ratio % VBG pH (7.32-7.42) VBG pCO2 at Pat Temp (42-55) mm/Hg VBG pO2 at Pat Temp (25-40) mm/Hg VBG HCO3 (22-28) meq/L VBG O2 Sat ([place]) (95-100) VBG Base Excess (-2.0-2.0) VBG Hemoglobin VBG Carboxyhemoglobin (0.0-6.9) % T HGB POC Potassium (3.5-5.1) Sodium (137-145) mmol/L Potassium (3.5-5.1) mmol/L Chloride (98-107) mmol/L Carbon Dioxide (22-30) mmol/L Anion Gap (5-15) MEQ/L BUN (7-17) mg/dL Creatinine (0.52-1.04) mg/dL Estimated GFR ML/MIN Glucose (74-106) mg/dL Lactic Acid (0.4-2.0) Calcium (8.4-10.2) mg/dL Magnesium (1.6-2.3) mg/dL Total Bilirubin (0.2-1.3) mg/dL AST (14-36) U/L ALT (0-35) U/L Alkaline Phosphatase (38-126) U/L Troponin I < 0.012 (0.000-0.034) ng/mL NT-Pro-B Natriuret Pep (0-900) pg/mL Serum Total Protein (6.3-8.2) g/dL Albumin (3.5-5.0) g/dL Amylase (30-110) U/L Lipase (23-300) U/L Urine Color STRAW (YELLOW) Urine Appearance CLEAR (CLEAR) Urine pH 7.0 (5-6) Ur Specific [place] 1.035 (1.005-1.025) Urine Protein NEGATIVE (Negative) Urine Ketones NEGATIVE (NEGATIVE) Urine Blood NEGATIVE (0-5) Van/ul Urine Nitrite NEGATIVE (NEGATIVE) Urine Bilirubin NEGATIVE (NEGATIVE) Urine Urobilinogen NEGATIVE (0-1) mg/dL Ur Leukocyte Esterase NEGATIVE (NEGATIVE) Urine WBC (Auto) NONE (0-5) /HPF Urine RBC (Auto) NONE (0-2) /HPF U Epithel Cells (Auto) NONE (FEW) /HPF Urine Bacteria (Auto) NONE SEEN (NEGATIVE) /HPF Urine Culture Reflexed NO (NO) Urine Glucose NEGATIVE (NEGATIVE) mg/dL SARS-CoV-2 (PCR) NEGATIVE (NEGATIVE) 04/13/20 04/13/20 04/13/20 Range/Units 20:15 19:42 19:42 WBC (4.0-10.5) K/mm3 RBC (4.1-5.4) M/mm3 Hgb (12.0-16.0) gm/dl Hct (35-47) % MCV (78-100) fl MCH (26-32) pg MCHC (32-36) g/dl RDW (11.5-14.0) % Plt Count (150-450) K/mm3 MPV (7.5-11.0) fl Segmented Neutrophils (36.0-66.0) % Band Neutrophils (0.0-2.0) % Lymphocytes (Manual) (24-44) % Nucleated RBCs % Platelet Estimate (NORMAL) RBC Morphology Smear Path Review PT (9.95-12.35) SECONDS INR (0.8-3.0) APTT (25.3-37.0) SECONDS D-Dimer 1464 H* (215-500) ng/mL pO2/FiO2 Ratio 21.0 % VBG pH 7.52 H (7.32-7.42) VBG pCO2 at Pat Temp 33 L (42-55) mm/Hg VBG pO2 at Pat Temp 121 H (25-40) mm/Hg VBG HCO3 26.9 (22-28) meq/L VBG O2 Sat ([place]) 98.8 (95-100) VBG Base Excess 4.3 H (-2.0-2.0) VBG Hemoglobin 11.8 VBG Carboxyhemoglobin 8.1 H* (0.0-6.9) % T HGB POC Potassium 3.9 (3.5-5.1) Sodium (137-145) mmol/L Potassium (3.5-5.1) mmol/L Chloride (98-107) mmol/L Carbon Dioxide (22-30) mmol/L Anion Gap (5-15) MEQ/L BUN (7-17) mg/dL Creatinine (0.52-1.04) mg/dL Estimated GFR ML/MIN Glucose (74-106) mg/dL Lactic Acid 1.4 (0.4-2.0) Calcium (8.4-10.2) mg/dL Magnesium (1.6-2.3) mg/dL Total Bilirubin (0.2-1.3) mg/dL AST (14-36) U/L ALT (0-35) U/L Alkaline Phosphatase (38-126) U/L Troponin I < 0.012 (0.000-0.034) ng/mL NT-Pro-B Natriuret Pep (0-900) pg/mL Serum Total Protein (6.3-8.2) g/dL Albumin (3.5-5.0) g/dL Amylase (30-110) U/L Lipase (23-300) U/L Urine Color (YELLOW) Urine Appearance (CLEAR) Urine pH (5-6) Ur Specific [place] (1.005-1.025) Urine Protein (Negative) Urine Ketones (NEGATIVE) Urine Blood (0-5) Van/ul Urine Nitrite (NEGATIVE) Urine Bilirubin (NEGATIVE) Urine Urobilinogen (0-1) mg/dL Ur Leukocyte Esterase (NEGATIVE) Urine WBC (Auto) (0-5) /HPF Urine RBC (Auto) (0-2) /HPF U Epithel Cells (Auto) (FEW) /HPF Urine Bacteria (Auto) (NEGATIVE) /HPF Urine Culture Reflexed (NO) Urine Glucose (NEGATIVE) mg/dL SARS-CoV-2 (PCR) (NEGATIVE) 04/13/20 04/13/20 04/13/20 Range/Units 19:42 19:42 19:30 WBC 36.9 H* (4.0-10.5) K/mm3 RBC 3.60 L (4.1-5.4) M/mm3 Hgb 11.4 L (12.0-16.0) gm/dl Hct 34.8 L (35-47) % MCV 96.7 (78-100) fl MCH 31.7 (26-32) pg MCHC 32.8 (32-36) g/dl RDW 15.6 H (11.5-14.0) % Plt Count 226 (150-450) K/mm3 MPV 10.0 (7.5-11.0) fl Segmented Neutrophils 92 H (36.0-66.0) % Band Neutrophils 6 H (0.0-2.0) % Lymphocytes (Manual) 2 L (24-44) % Nucleated RBCs 1 % Platelet Estimate NORMAL (NORMAL) RBC Morphology NORMAL Smear Path Review Pending PT 12.5 H (9.95-12.35) SECONDS INR 1.11 (0.8-3.0) APTT 25.3 (25.3-37.0) SECONDS D-Dimer (215-500) ng/mL pO2/FiO2 Ratio % VBG pH (7.32-7.42) VBG pCO2 at Pat Temp (42-55) mm/Hg VBG pO2 at Pat Temp (25-40) mm/Hg VBG HCO3 (22-28) meq/L VBG O2 Sat ([place]) (95-100) VBG Base Excess (-2.0-2.0) VBG Hemoglobin VBG Carboxyhemoglobin (0.0-6.9) % T HGB POC Potassium (3.5-5.1) Sodium 136 L (137-145) mmol/L Potassium 3.8 (3.5-5.1) mmol/L Chloride 102 (98-107) mmol/L Carbon Dioxide 26 (22-30) mmol/L Anion Gap 11.3 (5-15) MEQ/L BUN 13 (7-17) mg/dL Creatinine 0.56 (0.52-1.04) mg/dL Estimated GFR > 60.0 ML/MIN Glucose 96 (74-106) mg/dL Lactic Acid (0.4-2.0) Calcium 9.8 (8.4-10.2) mg/dL Magnesium 1.7 (1.6-2.3) mg/dL Total Bilirubin 0.50 (0.2-1.3) mg/dL AST 20 (14-36) U/L ALT 10 (0-35) U/L Alkaline Phosphatase 89 (38-126) U/L Troponin I (0.000-0.034) ng/mL NT-Pro-B Natriuret Pep 878 (0-900) pg/mL Serum Total Protein 6.5 (6.3-8.2) g/dL Albumin 3.9 (3.5-5.0) g/dL Amylase 66 (30-110) U/L Lipase 76 (23-300) U/L Urine Color (YELLOW) Urine Appearance (CLEAR) Urine pH (5-6) Ur Specific [place] (1.005-1.025) Urine Protein (Negative) Urine Ketones (NEGATIVE) Urine Blood (0-5) Van/ul Urine Nitrite (NEGATIVE) Urine Bilirubin (NEGATIVE) Urine Urobilinogen (0-1) mg/dL Ur Leukocyte Esterase (NEGATIVE) Urine WBC (Auto) (0-5) /HPF Urine RBC (Auto) (0-2) /HPF U Epithel Cells (Auto) (FEW) /HPF Urine Bacteria (Auto) (NEGATIVE) /HPF Urine Culture Reflexed (NO) Urine Glucose (NEGATIVE) mg/dL SARS-CoV-2 (PCR) (NEGATIVE) - Progress Progress: unchanged Progress Note: 04/13/20 21:34 Pt denies ever having any bleeding problems, denies ever vomiting blood and denies ever passing blood through her rectum. 04/13/20 21:43 Pt vomited in ER. Blood Culture(s) Obtained: Yes Antibiotics given: Yes Discussed with : Vidhya (obs) Will see patient in: hospital (observation) Counseled pt/family regarding: lab results, diagnosis, rad results - Departure Departure Disposition: Observation Clinical Impression: shortness of air, Vomiting, lung cancer, Abdominal pain, Leukocytosis, D-dimer, elevated
[2020-04-13] MEDS ORDERED: Zofran 4 MG/2 ML VIAL IV ONE ×2 (19:38→21:27)
[2020-04-13] MEDS ORDERED: MORPHINE SULFATE 2 MG INJ IV ONE (19:38)
[2020-04-13] MEDS ORDERED: Sodium Chloride 0.9% 1000 ML 1,000 ML IV SCH ×2 (19:45→23:26)
[2020-04-13] MEDS ORDERED: MORPHINE SULFATE 2 MG INJ ONE (19:47)
[2020-04-13] MEDS ORDERED: Zofran 4 MG/2 ML VIAL ONE ×2 (19:47→21:27)
[2020-04-13] MEDS ORDERED: Sodium Chloride 0.9% 1000 ML 1,000 ML ONE ×2 (19:47→20:47)
[2020-04-13] MEDS ORDERED: Sodium Chloride 0.9% 1000 ML 1,000 ML IV STA (19:49)
[2020-04-13 20:01] LABS: Hematocrit 34.8 % (35-47); Hemoglobin 11.4 gm/dl (12.0-16.0); Mean Cell Volume 96.7 fl (78-100); Mean Corpuscular Hemoglobin 31.7 pg (26-32); Mean Corpuscular Hgb Concent. 32.8 g/dl (32-36); Platelet Count 226 K/mm3 (150-450); Red Cell Distribution Width 15.6 % (11.5-14.0)
[2020-04-13 20:08] LABS: White Blood Count 36.9 K/mm3 (4.0-10.5)
[2020-04-13] MEDS ORDERED: Zithromax 500 MG/ 250 ML NaCl Premix 500 MG/250 ML IVPB IV STA (20:08)
[2020-04-13] MEDS ORDERED: ROCEPHIN 1 Gm-D5w 50 ml Bag** 1 G/50 ML IVPB IV STA (20:08)
[2020-04-13 20:22] LABS: Lactic Acid 1.4 (0.4-2.0); VBG BASE EXCESS 4.3 (-2.0-2.0); VBG CARBOXYHEMOGLOBIN 8.1 % T HGB (0.0-6.9); VBG HCO3- 26.9 meq/L (22-28); VBG HEMOGLOBIN 11.8; VBG O2 SATURATION 98.8 (95-100); VBG POTASSIUM 3.9 (3.5-5.1); VBG pH 7.52 (7.32-7.42)
[2020-04-13 20:23] LABS: ALBUMIN 3.9 g/dL (3.5-5.0); ALKALINE PHOSPHATASE 89 U/L (38-126); AMYLASE 66 U/L (30-110); ANION GAP 11.3 MEQ/L (5-15); BLOOD UREA NITROGEN 13 mg/dL (7-17); CHLORIDE 102 mmol/L (98-107); Calcium 9.8 mg/dL (8.4-10.2); Carbon Dioxide 26 mmol/L (22-30); Creatinine 1 0.56 mg/dL (0.52-1.04); EST GLOMERULAR FILTRATION RATE > 60.0 ML/MIN; Glucose 96 mg/dL (74-106); LIPASE 76 U/L (23-300); MAGNESIUM 1.7 mg/dL (1.6-2.3); NT PRO BNP 878 pg/mL (0-900); Potassium 3.8 mmol/L (3.5-5.1); SGOT/AST 20 U/L (14-36); SGPT/ALT 10 U/L (0-35); SODIUM 136 mmol/L (137-145); Total Protein 6.5 g/dL (6.3-8.2)
[2020-04-13] MEDS ORDERED: Ativan 1 MG PO ONE ×2 (20:44→21:31)
[2020-04-13] MEDS ORDERED: Zithromax 500 MG/ 250 ML NaCl Premix 500 MG/250 ML IVPB IV ONE (20:47)
[2020-04-13] MEDS ORDERED: Ativan 1 MG ONE ×2 (20:47→21:33)
[2020-04-13] MEDS ORDERED: ROCEPHIN 1 Gm-D5w 50 ml Bag** 1 G/50 ML IVPB IV ONE (20:47)
[2020-04-13 20:55] LABS: BAND 6 % (0.0-2.0); Lymphocytes 2 % (24-44); Neutrophils 92 % (36.0-66.0); Nucleated Red Blood Cell 1 %; Platelet Estimate NORMAL (NORMAL); Total Cells Counted 100
[2020-04-13] MEDS ORDERED: ENOXAPARIN SODIUM SQ ONE ×2 (21:32→21:53)
[2020-04-13] MEDS ORDERED: SUBLIMAZE 100 MCG/2 ML IV ONE (21:50)
[2020-04-13 21:52] LABS: Appearance CLEAR (CLEAR); Bilirubin NEGATIVE (NEGATIVE); Blood NEGATIVE Ery/ul (0-5); Glucose NEGATIVE (NEGATIVE); Ketones NEGATIVE (NEGATIVE); Leukocyte Esterase NEGATIVE (NEGATIVE); Nitrite NEGATIVE (NEGATIVE); Protein,Urine Dip NEGATIVE (Negative); Specific Gravity 1.035 (1.005-1.025); Urobilinogen NEGATIVE mg/dL (0-1)
[2020-04-13] MEDS ORDERED: SUBLIMAZE 100 MCG/2 ML ONE (21:53)
[2020-04-13 21:58] LABS: Bacteria NONE SEEN /HPF (NEGATIVE)
[2020-04-13 23:03] LABS: INR 1.11 (0.8-3.0); PROTIME 12.5 SECONDS (9.95-12.35)
[2020-04-13 23:05] LABS: PTT 25.3 SECONDS (25.3-37.0)
[2020-04-13] MEDS ORDERED: ENOXAPARIN SODIUM SQ SCH (23:26)
[2020-04-14] MEDS: MORPHINE SULFATE 2 MG INJ IV PRN ×2 (00:43→08:04)
[2020-04-14] MEDS: Zofran 4 MG/2 ML VIAL IV PRN ×2 (03:35→08:17)
[2020-04-14 05:29] LABS: Hematocrit 28.8 % (35-47); Mean Cell Volume 98.6 fl (78-100); Mean Corpuscular Hemoglobin 30.8 pg (26-32); Mean Corpuscular Hgb Concent. 31.3 g/dl (32-36); Mean Platelet Volume 10.3 fl (7.5-11.0); Platelet Count 170 K/mm3 (150-450); Red Blood Count 2.92 M/mm3 (4.1-5.4); Red Cell Distribution Width 15.4 % (11.5-14.0)
[2020-04-14 05:43] LABS: White Blood Count 25.4 K/mm3 (4.0-10.5)
[2020-04-14 05:45] LABS: ALBUMIN 2.9 g/dL (3.5-5.0); ALKALINE PHOSPHATASE 68 U/L (38-126); ANION GAP 5.7 MEQ/L (5-15); BLOOD UREA NITROGEN 9 mg/dL (7-17); CHLORIDE 104 mmol/L (98-107); Calcium 8.6 mg/dL (8.4-10.2); Carbon Dioxide 28 mmol/L (22-30); Creatinine 1 0.47 mg/dL (0.52-1.04); EST GLOMERULAR FILTRATION RATE > 60.0 ML/MIN; Glucose 85 mg/dL (74-106); Potassium 3.6 mmol/L (3.5-5.1); SGOT/AST 14 U/L (14-36); SGPT/ALT 7 U/L (0-35); SODIUM 134 mmol/L (137-145); Total Protein 5.3 g/dL (6.3-8.2)
[2020-04-14 05:53] LABS: INR 1.26 (0.8-3.0); PROTIME 14.3 SECONDS (9.95-12.35)
[2020-04-14 06:20] LABS: BAND 4 % (0.0-2.0); Lymphocytes 2 % (24-44); Monocyte 1 % (0.0-12.0); Neutrophils 93 % (36.0-66.0); Total Cells Counted 100
[2020-04-14 06:21] LABS: Platelet Estimate NORMAL (NORMAL)
[2020-04-14] MEDS ORDERED: VENTOLIN COMMON CANISTER IH SCH (07:00)
--- NOTE | 2020-04-14 08:53 | XRAY ---
Indication: Short of breath. History left lung carcinoma. Comparison: February 08, 2020. PA/lateral chest again hyperinflated with interval diminished left upper lobe peripheral mass like opacity and diminished left base effusion/atelectasis. Right lung clear. Heart and mediastinal structures within normal limits with new right Port-A-Cath. No pneumothorax.
--- NOTE | 2020-04-14 08:54 | PCM.HP ---
History of Present Illness - Chief Complaint Chief Complaint: Dyspnea, leukocytosis, lung cancer, vomiting, anxiety History of Present Illness: is a 55 year old female pt of Dr. Santana with small cell CA of lung who was admitted through ER with vomiting, abd pain, CP, and SOB. She was found to have elevated D-dimer, but had CT with contrast of abd/pelvis in ER so was given therapeutic doses of lovenox and admitted for VQ scan (done this morning; results are pending). Pt would like something to drink. On admission, her BNP was normal. WBC were 36,000; this morning they are 25,400. Blood cultures are pending x 2. She is on zithromax and rocephin day #2. - Review of Systems Constitutional: Weakness Respiratory: Cough, Short Of Breath Cardiac: Chest Pain Abdominal/Gastrointestinal: Abdominal Pain, Vomiting Psychological: No Anxiety, No Depression, No Suicidal Ideations All Other Systems: Reviewed and Negative Medications & Allergies Home Medications: Home Medication List Hydrocodone/Acetaminophen [Hydrocodone-Acetamin 10-325 mg] 1 tab PO BID 10/21/19 [History Confirmed 04/13/20] Albuterol 2 puff IH BID PRN PRN 03/23/20 [History Confirmed 04/13/20] Ondansetron ODT 4 MG [Zofran Odt 4 mg] 4 mg PO Q6HPRN PRN 03/23/20 [History Confirmed 04/13/20] Cephalexin Monohydrate [Cephalexin] 500 mg PO TID 04/14/20 [History Confirmed 04/14/20] Cyclobenzaprine HCl 5 mg PO BIDPRN PRN 04/14/20 [History Confirmed 04/14/20] Prochlorperazine Maleate 10 mg [Compazine 10 mg] 10 mg PO Q2H/PRN PRN 04/14/20 [History Confirmed 04/14/20] Allergies/Adverse Reactions: Allergies Allergy/AdvReac Type Severity Reaction Status Date / Time Sulfa (Sulfonamide Allergy Intermediate Hives Verified 04/13/20 23:35 Antibiotics) triamcinolone acetonide Allergy Intermediate Hives Verified 04/13/20 23:35 [From Kenalog] - Past Medical History Past Medical History: Yes Neurological History: Migraines ENT History: No Pertinent History Cardiac History: No Pertinent History Respiratory History: Asthma, Lung Cancer Endocrine Medical History: No Pertinent History Musculoskelatal History: Arthritis GI Medical History: GERD History: No Pertinent History Pyscho-Social History: Anxiety, Depression Reproductive Disorders: No Pertinent History Comment: chronic back pain - Past Surgical History Past Surgical History: Yes Neuro Surgical History: No Pertinent History Cardiac History: No Pertinent History Respiratory Surgery: No Pertinent History GI Surgical History: No Pertinent History Genitourinary Surgical Hx: No Pertinent History Musculskeletal Surgical Hx: No Pertinent History Female Surgical History: Tubal Ligation Other Surgical History: port in R upper chest for chemo - Social History Smoking Status: Current every day smoker How long have you smoked: 36 Exposure to second hand smoke: Yes Alcohol: None Drug Use: none Significant Family History: no pertinent family hx - Physical Exam Vital Signs: Vital Signs - 24 hr Temp Pulse Resp BP Pulse Ox 04/14/20 07:23 98.2 F 104 H 18 116/56 97 04/14/20 06:45 100 04/14/20 06:44 94 H 16 92 L 04/14/20 04:00 98.2 F 103 H 13 119/63 96 04/14/20 00:42 99 H 10 L 93 L 04/13/20 23:43 98.7 F 102 H 16 114/67 95 04/13/20 23:05 102 H 16 114/67 95 04/13/20 22:24 102 H 114/74 94 L 04/13/20 21:00 122 H 17 125/86 98 04/13/20 20:42 113 H 18 135/89 98 04/13/20 19:45 100 04/13/20 19:25 98.7 F 122 H 118 H 135/89 100 General Appearance: mild distress, alert Neurologic Exam: 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, cooperative Eye Exam: eyes nml inspection Ears, Nose, Throat Exam: moist mucous membranes Neck Exam: normal inspection Respiratory Exam: lungs clear, diminished breath sounds (good air exchange), No crackles/rales, No rhonchi, No wheezing Cardiovascular Exam: regular rate/rhythm, normal heart sounds, No murmur Gastrointestinal/Abdomen Exam: soft, normal bowel sounds, No tenderness, No distention, No mass, No guarding, No rebound Extremity Exam: normal inspection, No pedal edema, No swelling Skin Exam: normal color, warm, dry, No rash Results - Labs Lab/Micro Results: Lab Results-Last 24 Hours 04/13/20 04/13/20 04/13/20 Range/Units 19:30 19:42 19:42 WBC 36.9 H* (4.0-10.5) K/mm3 RBC 3.60 L (4.1-5.4) M/mm3 Hgb 11.4 L (12.0-16.0) gm/dl Hct 34.8 L (35-47) % MCV 96.7 (78-100) fl MCH 31.7 (26-32) pg MCHC 32.8 (32-36) g/dl RDW 15.6 H (11.5-14.0) % Plt Count 226 (150-450) K/mm3 MPV 10.0 (7.5-11.0) fl Segmented Neutrophils 92 H (36.0-66.0) % Band Neutrophils 6 H (0.0-2.0) % Lymphocytes (Manual) 2 L (24-44) % Monocytes (Manual) (0.0-12.0) % Nucleated RBCs 1 % Platelet Estimate NORMAL (NORMAL) RBC Morphology NORMAL Smear Path Review Pending PT 12.5 H (9.95-12.35) SECONDS INR 1.11 (0.8-3.0) APTT 25.3 (25.3-37.0) SECONDS D-Dimer (215-500) ng/mL pO2/FiO2 Ratio % VBG pH (7.32-7.42) VBG pCO2 at Pat Temp (42-55) mm/Hg VBG pO2 at Pat Temp (25-40) mm/Hg VBG HCO3 (22-28) meq/L VBG O2 Sat ([place]) (95-100) VBG Base Excess (-2.0-2.0) VBG Hemoglobin VBG Carboxyhemoglobin (0.0-6.9) % T HGB POC Potassium (3.5-5.1) Sodium 136 L (137-145) mmol/L Potassium 3.8 (3.5-5.1) mmol/L Chloride 102 (98-107) mmol/L Carbon Dioxide 26 (22-30) mmol/L Anion Gap 11.3 (5-15) MEQ/L BUN 13 (7-17) mg/dL Creatinine 0.56 (0.52-1.04) mg/dL Estimated GFR > 60.0 ML/MIN Glucose 96 (74-106) mg/dL Lactic Acid (0.4-2.0) Calcium 9.8 (8.4-10.2) mg/dL Magnesium 1.7 (1.6-2.3) mg/dL Total Bilirubin 0.50 (0.2-1.3) mg/dL AST 20 (14-36) U/L ALT 10 (0-35) U/L Alkaline Phosphatase 89 (38-126) U/L Troponin I (0.000-0.034) ng/mL NT-Pro-B Natriuret Pep 878 (0-900) pg/mL Serum Total Protein 6.5 (6.3-8.2) g/dL Albumin 3.9 (3.5-5.0) g/dL Amylase 66 (30-110) U/L Lipase 76 (23-300) U/L Urine Color (YELLOW) Urine Appearance (CLEAR) Urine pH (5-6) Ur Specific [place] (1.005-1.025) Urine Protein (Negative) Urine Ketones (NEGATIVE) Urine Blood (0-5) Van/ul Urine Nitrite (NEGATIVE) Urine Bilirubin (NEGATIVE) Urine Urobilinogen (0-1) mg/dL Ur Leukocyte Esterase (NEGATIVE) Urine WBC (Auto) (0-5) /HPF Urine RBC (Auto) (0-2) /HPF U Epithel Cells (Auto) (FEW) /HPF Urine Bacteria (Auto) (NEGATIVE) /HPF Urine Culture Reflexed (NO) Urine Glucose (NEGATIVE) mg/dL SARS-CoV-2 (PCR) (NEGATIVE) 04/13/20 04/13/20 04/13/20 Range/Units 19:42 19:42 20:15 WBC (4.0-10.5) K/mm3 RBC (4.1-5.4) M/mm3 Hgb (12.0-16.0) gm/dl Hct (35-47) % MCV (78-100) fl MCH (26-32) pg MCHC (32-36) g/dl RDW (11.5-14.0) % Plt Count (150-450) K/mm3 MPV (7.5-11.0) fl Segmented Neutrophils (36.0-66.0) % Band Neutrophils (0.0-2.0) % Lymphocytes (Manual) (24-44) % Monocytes (Manual) (0.0-12.0) % Nucleated RBCs % Platelet Estimate (NORMAL) RBC Morphology Smear Path Review PT (9.95-12.35) SECONDS INR (0.8-3.0) APTT (25.3-37.0) SECONDS D-Dimer 1464 H* (215-500) ng/mL pO2/FiO2 Ratio 21.0 % VBG pH 7.52 H (7.32-7.42) VBG pCO2 at Pat Temp 33 L (42-55) mm/Hg VBG pO2 at Pat Temp 121 H (25-40) mm/Hg VBG HCO3 26.9 (22-28) meq/L VBG O2 Sat ([place]) 98.8 (95-100) VBG Base Excess 4.3 H (-2.0-2.0) VBG Hemoglobin 11.8 VBG Carboxyhemoglobin 8.1 H* (0.0-6.9) % T HGB POC Potassium 3.9 (3.5-5.1) Sodium (137-145) mmol/L Potassium (3.5-5.1) mmol/L Chloride (98-107) mmol/L Carbon Dioxide (22-30) mmol/L Anion Gap (5-15) MEQ/L BUN (7-17) mg/dL Creatinine (0.52-1.04) mg/dL Estimated GFR ML/MIN Glucose (74-106) mg/dL Lactic Acid 1.4 (0.4-2.0) Calcium (8.4-10.2) mg/dL Magnesium (1.6-2.3) mg/dL Total Bilirubin (0.2-1.3) mg/dL AST (14-36) U/L ALT (0-35) U/L Alkaline Phosphatase (38-126) U/L Troponin I < 0.012 (0.000-0.034) ng/mL NT-Pro-B Natriuret Pep (0-900) pg/mL Serum Total Protein (6.3-8.2) g/dL Albumin (3.5-5.0) g/dL Amylase (30-110) U/L Lipase (23-300) U/L Urine Color (YELLOW) Urine Appearance (CLEAR) Urine pH (5-6) Ur Specific [place] (1.005-1.025) Urine Protein (Negative) Urine Ketones (NEGATIVE) Urine Blood (0-5) Van/ul Urine Nitrite (NEGATIVE) Urine Bilirubin (NEGATIVE) Urine Urobilinogen (0-1) mg/dL Ur Leukocyte Esterase (NEGATIVE) Urine WBC (Auto) (0-5) /HPF Urine RBC (Auto) (0-2) /HPF U Epithel Cells (Auto) (FEW) /HPF Urine Bacteria (Auto) (NEGATIVE) /HPF Urine Culture Reflexed (NO) Urine Glucose (NEGATIVE) mg/dL SARS-CoV-2 (PCR) (NEGATIVE) 04/13/20 04/13/20 04/13/20 Range/Units 21:42 21:44 22:56 WBC (4.0-10.5) K/mm3 RBC (4.1-5.4) M/mm3 Hgb (12.0-16.0) gm/dl Hct (35-47) % MCV (78-100) fl MCH (26-32) pg MCHC (32-36) g/dl RDW (11.5-14.0) % Plt Count (150-450) K/mm3 MPV (7.5-11.0) fl Segmented Neutrophils (36.0-66.0) % Band Neutrophils (0.0-2.0) % Lymphocytes (Manual) (24-44) % Monocytes (Manual) (0.0-12.0) % Nucleated RBCs % Platelet Estimate (NORMAL) RBC Morphology Smear Path Review PT (9.95-12.35) SECONDS INR (0.8-3.0) APTT (25.3-37.0) SECONDS D-Dimer (215-500) ng/mL pO2/FiO2 Ratio % VBG pH (7.32-7.42) VBG pCO2 at Pat Temp (42-55) mm/Hg VBG pO2 at Pat Temp (25-40) mm/Hg VBG HCO3 (22-28) meq/L VBG O2 Sat ([place]) (95-100) VBG Base Excess (-2.0-2.0) VBG Hemoglobin VBG Carboxyhemoglobin (0.0-6.9) % T HGB POC Potassium (3.5-5.1) Sodium (137-145) mmol/L Potassium (3.5-5.1) mmol/L Chloride (98-107) mmol/L Carbon Dioxide (22-30) mmol/L Anion Gap (5-15) MEQ/L BUN (7-17) mg/dL Creatinine (0.52-1.04) mg/dL Estimated GFR ML/MIN Glucose (74-106) mg/dL Lactic Acid (0.4-2.0) Calcium (8.4-10.2) mg/dL Magnesium (1.6-2.3) mg/dL Total Bilirubin (0.2-1.3) mg/dL AST (14-36) U/L ALT (0-35) U/L Alkaline Phosphatase (38-126) U/L Troponin I < 0.012 (0.000-0.034) ng/mL NT-Pro-B Natriuret Pep (0-900) pg/mL Serum Total Protein (6.3-8.2) g/dL Albumin (3.5-5.0) g/dL Amylase (30-110) U/L Lipase (23-300) U/L Urine Color STRAW (YELLOW) Urine Appearance CLEAR (CLEAR) Urine pH 7.0 (5-6) Ur Specific [place] 1.035 (1.005-1.025) Urine Protein NEGATIVE (Negative) Urine Ketones NEGATIVE (NEGATIVE) Urine Blood NEGATIVE (0-5) Van/ul Urine Nitrite NEGATIVE (NEGATIVE) Urine Bilirubin NEGATIVE (NEGATIVE) Urine Urobilinogen NEGATIVE (0-1) mg/dL Ur Leukocyte Esterase NEGATIVE (NEGATIVE) Urine WBC (Auto) NONE (0-5) /HPF Urine RBC (Auto) NONE (0-2) /HPF U Epithel Cells (Auto) NONE (FEW) /HPF Urine Bacteria (Auto) NONE SEEN (NEGATIVE) /HPF Urine Culture Reflexed NO (NO) Urine Glucose NEGATIVE (NEGATIVE) mg/dL SARS-CoV-2 (PCR) NEGATIVE (NEGATIVE) 04/14/20 04/14/20 04/14/20 Range/Units 02:08 04:30 04:30 WBC 25.4 H* (4.0-10.5) K/mm3 RBC 2.92 L (4.1-5.4) M/mm3 Hgb 9.0 L D (12.0-16.0) gm/dl Hct 28.8 L (35-47) % MCV 98.6 (78-100) fl MCH 30.8 (26-32) pg MCHC 31.3 L (32-36) g/dl RDW 15.4 H (11.5-14.0) % Plt Count 170 (150-450) K/mm3 MPV 10.3 (7.5-11.0) fl Segmented Neutrophils 93 H (36.0-66.0) % Band Neutrophils 4 H (0.0-2.0) % Lymphocytes (Manual) 2 L (24-44) % Monocytes (Manual) 1 (0.0-12.0) % Nucleated RBCs % Platelet Estimate NORMAL (NORMAL) RBC Morphology NORMAL Smear Path Review PT (9.95-12.35) SECONDS INR (0.8-3.0) APTT (25.3-37.0) SECONDS D-Dimer (215-500) ng/mL pO2/FiO2 Ratio % VBG pH (7.32-7.42) VBG pCO2 at Pat Temp (42-55) mm/Hg VBG pO2 at Pat Temp (25-40) mm/Hg VBG HCO3 (22-28) meq/L VBG O2 Sat ([place]) (95-100) VBG Base Excess (-2.0-2.0) VBG Hemoglobin VBG Carboxyhemoglobin (0.0-6.9) % T HGB POC Potassium (3.5-5.1) Sodium (137-145) mmol/L Potassium (3.5-5.1) mmol/L Chloride (98-107) mmol/L Carbon Dioxide (22-30) mmol/L Anion Gap (5-15) MEQ/L BUN (7-17) mg/dL Creatinine (0.52-1.04) mg/dL Estimated GFR ML/MIN Glucose (74-106) mg/dL Lactic Acid (0.4-2.0) Calcium (8.4-10.2) mg/dL Magnesium (1.6-2.3) mg/dL Total Bilirubin (0.2-1.3) mg/dL AST (14-36) U/L ALT (0-35) U/L Alkaline Phosphatase (38-126) U/L Troponin I < 0.012 < 0.012 (0.000-0.034) ng/mL NT-Pro-B Natriuret Pep (0-900) pg/mL Serum Total Protein (6.3-8.2) g/dL Albumin (3.5-5.0) g/dL Amylase (30-110) U/L Lipase (23-300) U/L Urine Color (YELLOW) Urine Appearance (CLEAR) Urine pH (5-6) Ur Specific [place] (1.005-1.025) Urine Protein (Negative) Urine Ketones (NEGATIVE) Urine Blood (0-5) Van/ul Urine Nitrite (NEGATIVE) Urine Bilirubin (NEGATIVE) Urine Urobilinogen (0-1) mg/dL Ur Leukocyte Esterase (NEGATIVE) Urine WBC (Auto) (0-5) /HPF Urine RBC (Auto) (0-2) /HPF U Epithel Cells (Auto) (FEW) /HPF Urine Bacteria (Auto) (NEGATIVE) /HPF Urine Culture Reflexed (NO) Urine Glucose (NEGATIVE) mg/dL SARS-CoV-2 (PCR) (NEGATIVE) 04/14/20 04/14/20 Range/Units 04:30 04:30 WBC (4.0-10.5) K/mm3 RBC (4.1-5.4) M/mm3 Hgb (12.0-16.0) gm/dl Hct (35-47) % MCV (78-100) fl MCH (26-32) pg MCHC (32-36) g/dl RDW (11.5-14.0) % Plt Count (150-450) K/mm3 MPV (7.5-11.0) fl Segmented Neutrophils (36.0-66.0) % Band Neutrophils (0.0-2.0) % Lymphocytes (Manual) (24-44) % Monocytes (Manual) (0.0-12.0) % Nucleated RBCs % Platelet Estimate (NORMAL) RBC Morphology Smear Path Review PT 14.3 H (9.95-12.35) SECONDS INR 1.26 (0.8-3.0) APTT (25.3-37.0) SECONDS D-Dimer (215-500) ng/mL pO2/FiO2 Ratio % VBG pH (7.32-7.42) VBG pCO2 at Pat Temp (42-55) mm/Hg VBG pO2 at Pat Temp (25-40) mm/Hg VBG HCO3 (22-28) meq/L VBG O2 Sat ([place]) (95-100) VBG Base Excess (-2.0-2.0) VBG Hemoglobin VBG Carboxyhemoglobin (0.0-6.9) % T HGB POC Potassium (3.5-5.1) Sodium 134 L (137-145) mmol/L Potassium 3.6 (3.5-5.1) mmol/L Chloride 104 (98-107) mmol/L Carbon Dioxide 28 (22-30) mmol/L Anion Gap 5.7 (5-15) MEQ/L BUN 9 (7-17) mg/dL Creatinine 0.47 L (0.52-1.04) mg/dL Estimated GFR > 60.0 ML/MIN Glucose 85 (74-106) mg/dL Lactic Acid (0.4-2.0) Calcium 8.6 (8.4-10.2) mg/dL Magnesium (1.6-2.3) mg/dL Total Bilirubin 0.50 (0.2-1.3) mg/dL AST 14 (14-36) U/L ALT 7 (0-35) U/L Alkaline Phosphatase 68 (38-126) U/L Troponin I (0.000-0.034) ng/mL NT-Pro-B Natriuret Pep (0-900) pg/mL Serum Total Protein 5.3 L (6.3-8.2) g/dL Albumin 2.9 L (3.5-5.0) g/dL Amylase (30-110) U/L Lipase (23-300) U/L Urine Color (YELLOW) Urine Appearance (CLEAR) Urine pH (5-6) Ur Specific [place] (1.005-1.025) Urine Protein (Negative) Urine Ketones (NEGATIVE) Urine Blood (0-5) Van/ul Urine Nitrite (NEGATIVE) Urine Bilirubin (NEGATIVE) Urine Urobilinogen (0-1) mg/dL Ur Leukocyte Esterase (NEGATIVE) Urine WBC (Auto) (0-5) /HPF Urine RBC (Auto) (0-2) /HPF U Epithel Cells (Auto) (FEW) /HPF Urine Bacteria (Auto) (NEGATIVE) /HPF Urine Culture Reflexed (NO) Urine Glucose (NEGATIVE) mg/dL SARS-CoV-2 (PCR) (NEGATIVE) - Radiology Impressions Radiology Exams & Impressions: Radiology Procedures Category Date Time Status ABDOMEN AND PELVIS W CONTRAST [CT] Stat Exams 04/13/20 19:38 Taken CHEST 2 VIEWS (PA AND LAT) Stat Exams 04/13/20 19:36 Taken PULMONARY PERF VENTILATION [NUCMED] Routine Exams 04/14/20 08:00 Taken - Other Procedures and Tests Respiratory Therapy 04/13/20 23:26 Oxygen Nasal Cannula 2 lpm 04/14/20 00:42 Respiratory Therapy Assessment DAILY 04/14/20 06:39 Respiratory MDI BID Assessment/Plan (1) Chest pain Current Visit: Yes Status: Acute Qualifiers: Chest pain type: unspecified Qualified Code(s): R07.9 - Chest pain, unspecified Assessment & Plan: VQ scan result pending. On therapeutic lovenox dosage. Code(s): R07.9 - CHEST PAIN, UNSPECIFIED (2) Abdominal pain Current Visit: Yes Status: Resolved Qualifiers: Abdominal location: unspecified location Qualified Code(s): R10.9 - Unspecified abdominal pain Assessment & Plan: no complaint this a.m. CT abd/pelvis with nonspecific free fluid; no acute. Code(s): R10.9 - UNSPECIFIED ABDOMINAL PAIN (3) D-dimer, elevated Current Visit: Yes Status: Acute Code(s): R79.89 - OTHER SPECIFIED ABNORMAL FINDINGS OF BLOOD CHEMISTRY (4) Vomiting Current Visit: Yes Status: Acute Qualifiers: Vomiting type: unspecified Vomiting Intractability: non-intractable Nausea presence: unspecified Qualified Code(s): R11.10 - Vomiting, unspecified Assessment & Plan: Pt to try CLD. Code(s): R11.10 - VOMITING, UNSPECIFIED (5) COPD exacerbation Current Visit: No Status: Acute Assessment & Plan: On rocephin and zithromax. Code(s): J44.1 - CHRONIC OBSTRUCTIVE PULMONARY DISEASE W (ACUTE) EXACERBATION (6) Leukocytosis Current Visit: Yes Status: Acute Qualifiers: Leukocytosis type: unspecified Qualified Code(s): D72.829 - Elevated white blood cell count, unspecified Assessment & Plan: Likely due to COPD exacerbation, but may also be exacerbated by the recent vo miting. Improved today. recheck in a.m. Code(s): D72.829 - ELEVATED WHITE BLOOD CELL COUNT, UNSPECIFIED
--- NOTE | 2020-04-14 08:54 | XRAY ---
Indication: Left chest pain, short of breath, and elevated d-dimer. Nausea and vomiting. History left lung carcinoma with radiation/chemotherapy 1 week ago. Comparison: None Patient received 5 mCi technetium 99 MAA for the perfusion portion of the exam. Patient inhaled 35.6 mCi of aerosolized technetium 99 DTPA for the ventilation portion of the exam. Multiple planar images obtained. Perfusion images demonstrates markedly asymmetric diminished radiopharmaceutical activity throughout the left lung, greatest in the upper and lower lobes. Right lung demonstrates homogeneous radiopharmaceutical activity without segmental/subsegmental perfusion defect. Ventilation images demonstrates homogeneous radiopharmaceutical activity bilaterally. Small amount of GI radiopharmaceutical activity from incidental ingestion. Impression: Markedly diminished perfusion throughout the left lung with normal ventilation radiopharmaceutical activity. PIOPED criteria favors high probability for pulmonary embolus. It should be noted recent CT chest with contrast exam March 23, 2020 demonstrates bulky mediastinal and left hilar lymphadenopathy with mass effect on left hilar vessels/bronchus which could explain ventilation/perfusion mismatch.
--- NOTE | 2020-04-14 09:19 | XRAY ---
Indication: Abdomen pain, nausea, vomiting, diarrhea. Elevated WBC. History left lung cancer. Multiple contiguous axial images obtained through the abdomen and pelvis using 80 cc Isovue 370 contrast. Comparison: March 23, 2020. Lung bases demonstrates markedly diminished left effusion and left lower lobe atelectasis with minimal residual. Right lung bases clear. Heart is not enlarged. Stomach is distended with food/fluid. Noncontrasted stomach and bowel loops remain nonobstructed with normal appendix. Again small cul-de-sac fluid more than before. No walled off fluid collection or free air. Gallbladder contracted without gallstones. Spleen is now enlarged measuring 13 cm. Remaining liver, pancreas, adrenal glands, kidneys, ureters, bladder, and uterus appear unremarkable. Stable mild aortoiliac calcifications. Left gonadal vein remains prominent up to 7 mm and is of uncertain clinical significance. No AAA or pathologic retroperitoneal lymphadenopathy. Osseous structures intact again with L3 Schmorl node and remote L4 compression fracture. Impression: 1. New splenomegaly. 2. Diminished left lung base effusion/atelectasis with minimal residual. 3. Again nonspecific cul-de-sac free fluid and enlarged left gonadal vein. Comment: Preliminary interpretation was made by [facility]. No critical discrepancy.
[2020-04-14] MEDS ORDERED: Zofran 4 MG/2 ML VIAL IV PRN (09:35)
[2020-04-14] MEDS ORDERED: ENOXAPARIN SODIUM SQ SCH (10:00)
[2020-04-14 11:51] VITALS: BP 121/63; PULSE 107; O2SAT 95
[2020-04-14] MEDS ORDERED: Nicoderm CQ 21 MG TOP SCH (12:00)
[2020-04-14] MEDS ORDERED: TYLENOL 325 MG PO PRN (12:26)
[2020-04-14] MEDS ORDERED: Zithromax 500 MG/ 250 ML NaCl Premix 500 MG/250 ML IVPB IV SCH (22:00)
[2020-04-14] MEDS ORDERED: ROCEPHIN 1 Gm-D5w 50 ml Bag** 1 G/50 ML IVPB IV SCH (22:00)
== END 2020-04-14 12:58 | disposition home or self-care (01) ==
LOC: ED 19:24 → MED SURG 23:22
PROVIDERS: ADMIT Family Medicine; ATTEND Family Medicine
DX: R07.9 Chest pain, unspecified (principal); R11.10 Vomiting, unspecified; C34.90 Malignant neoplasm of unspecified part of unspecified bronchus or lung; R10.9 Unspecified abdominal pain; Z79.899 Other long term (current) drug therapy; R79.89 Other specified abnormal findings of blood chemistry; J44.1 Chronic obstructive pulmonary disease with (acute) exacerbation; D72.829 Elevated white blood cell count, unspecified; F41.9 Anxiety disorder, unspecified
CPT/HCPCS: 36000; 36415; 71046; 74177; 78582; 80053; 81001; 82150; 82805; 83605; 83690; 83735; 83880; 84484; 85025; 85379; 85610; 85730; 87040; 93005; 93041; 93268; 94640; 94760; 94762; 96360; 96372; 96374; 96375; 96376; 99285; A9540; A9567; G0378; U0003; J0456; J0696; J1650; J2270; J2405; J3010; A9270-GY

== ENCOUNTER 2020-11-28 17:02 | Emergency (ER) | payer MEDICAID ==
--- NOTE | 2020-11-28 17:04 | ERPHSYRPT ---
- History of Present Illness Time Seen by Provider: 11/28/20 17:03 Source: patient Exam Limitations: no limitations Physician History: This is a 55-year-old white female patient who has a history of primary lung cancer with metastatic disease to her brain. She has had chemotherapy and radiation. She is first diagnosed in February 2020. Patient used to smoke 3 packs of cigarettes a day and now smokes a half a pack of cigarettes a day. Patient is ready to undergo another round of chemotherapy per her report. The last 2 to 3 days the patient has had nausea vomiting and has not been able to keep any food, liquids or medication down. She feels she might be dehydrated. She also has had significant thoracic spine pain in the last 2 days. Timing/Duration: day(s) (2) Method of Injury: other (No injury) Quality: sharp, stabbing Back Pain Location: T-spine Severity of Pain-Max: moderate Severity of Pain-Current: moderate Modifying Factors: Improves With: movement Associated Symptoms: nausea, vomiting, weakness, No urinary incontinence, No numbness in legs/feet, No sensory/motor loss, No tingling in legs/feet Previous symptoms: no prior history Allergies/Adverse Reactions: Sulfa (Sulfonamide Antibiotics) Allergy (Intermediate, Verified 04/13/20 23:35) Hives triamcinolone acetonide [From Kenalog] Allergy (Intermediate, Verified 04/13/20 23:35) Hives Home Medications: Hydrocodone/Acetaminophen [Hydrocodone-Acetamin 10-325 mg] 1 tab PO BID 10/21/19 [History] Albuterol 2 puff IH BID PRN PRN 03/23/20 [History] Ondansetron ODT 4 MG [Zofran Odt 4 mg] 4 mg PO Q6HPRN PRN 03/23/20 [History] Prochlorperazine Maleate 10 mg [Compazine 10 mg] 10 mg PO Q2H/PRN PRN 04/14/20 [History] Hx Tetanus, Diphtheria Vaccination/Date Given: No (unk) Hx Influenza Vaccination/Date Given: Yes Hx Pneumococcal Vaccination/Date Given: No Travel Risk - International Travel Have you traveled outside of the country in past 3 weeks: No - Coronavirus Screening Are you exhibiting any of the following symptoms?: No Close contact with a COVID-19 positive Pt in past 14-21 Days: No - Review of Systems Constitutional: Weakness Eyes: No Symptoms Ears, Nose, & Throat: No Symptoms Respiratory: No Symptoms Cardiac: No Symptoms Abdominal/Gastrointestinal: Nausea, Vomiting Genitourinary Symptoms: No Symptoms Musculoskeletal: Back Pain Skin: No Symptoms Neurological: No Symptoms Psychological: No Symptoms Endocrine: No Symptoms Hematologic/Lymphatic: No Symptoms Immunological/Allergic: No Symptoms All Other Systems: Reviewed and Negative - Past Medical History Pertinent Past Medical History: Yes Neurological History: Migraines ENT History: No Pertinent History Cardiac History: No Pertinent History Respiratory History: Asthma, Lung Cancer Endocrine Medical History: No Pertinent History Musculoskeletal History: Arthritis GI Medical History: GERD History: No Pertinent History Psycho-Social History: Anxiety, Depression Female Reproductive Disorders: No Pertinent History Other Medical History: chronic back pain - Past Surgical History Past Surgical History: Yes Neuro Surgical History: No Pertinent History Cardiac: No Pertinent History Respiratory: No Pertinent History Gastrointestinal: No Pertinent History Genitourinary: No Pertinent History Musculoskeletal: No Pertinent History Female Surgical History: Tubal Ligation Other Surgical History: port in R upper chest for chemo - Social History Smoking Status: Current every day smoker How long have you smoked: 36 Exposure to second hand smoke: Yes Drug Use: none Patient Lives Alone: No Significant Family History: no pertinent family hx - Nursing Vital Signs Nursing Vital Signs: Initial Vital Signs Temperature 93.8 F 11/28/20 17:18 Pulse Rate 140 H 11/28/20 17:18 Respiratory Rate 24 11/28/20 17:18 Blood Pressure 116/87 11/28/20 17:18 O2 Sat by Pulse Oximetry 100 11/28/20 17:18 Pain Scale Pain Intensity [Posterior Back 8 ] Pain Intensity 6 - Physical Exam General Appearance: mild distress, alert, anxiety Eye Exam: PERRL/EOMI, eyes nml inspection Ears, Nose, Throat Exam: normal ENT inspection, dry mucous membranes, pharyngeal erythema Neck Exam: normal inspection, supple, full range of motion Respiratory Exam: normal breath sounds, lungs clear, airway intact, No chest tenderness, No respiratory distress Cardiovascular Exam: tachycardia Gastrointestinal Exam: soft, normal bowel sounds, No tenderness Pelvic Exam: not done Rectal Exam: not done Back Exam: normal inspection, normal range of motion, vertebral tenderness, No CVA tenderness Extremity Exam: normal inspection, normal range of motion, pelvis stable Neurologic Exam: alert, 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, cooperative, osteologist II-XII nml as tested, normal mood/affect, nml cerebellar function, nml station & gait, sensation nml Skin Exam: normal color, warm, dry Lymphatic Exam: No adenopathy SpO2 Interpretation: normal O2 Delivery: Room Air - Course Nursing assessment & vital signs reviewed: Yes EKG Interpreted by Me: RATE ([id number]), Sinus Tach, NORMAL AXIS, NORMAL INTERVALS, NORMAL QRS, NORMAL ST-T, Other (There are no acute ischemic changes on today's EKG. There is no change from the comparison EKG dated 04/13/2020. Patient had sinus tachycardia on the prior EKG as well.) Ordered Tests: Active Orders 24 hr Category Date Time Status IV Insertion STAT Care 11/28/20 18:05 Active ABDOMEN AND PELVIS W/0 CONTRAS [CT] Stat Exams 11/28/20 18:26 Completed THORACIC SPINE W/O CONTRAST [CT] Stat Exams 11/28/20 18:26 Completed CBC W DIFF Stat Lab 11/28/20 18:28 Completed CMP Stat Lab 11/28/20 18:28 Completed CULTURE,URINE Stat Lab 11/28/20 18:07 Received LIPASE Stat Lab 11/28/20 18:28 Completed Lactic Acid Stat Lab 11/28/20 18:20 Completed Manual Differential NC Stat Lab 11/28/20 18:28 Completed UA W/RFX UR CULTURE Stat Lab 11/28/20 18:07 Completed Medication Summary Discontinued Medications Generic Name Dose Route Start Last Admin Trade Name Freq PRN Reason Stop Dose Admin Hydromorphone HCl 1 mg 11/28/20 18:05 11/28/20 18:26 Hydromorphone 1 Mg/Ml Injection IV 11/28/20 18:06 1 mg STAT ONE Administration Hydromorphone HCl Confirm 11/28/20 18:23 Hydromorphone 1 Mg/Ml Injection Administered 11/28/20 18:24 Dose 1 mg .ROUTE .STK-MED ONE Sodium Chloride 1,000 mls @ 999 mls/hr 11/28/20 18:05 11/28/20 19:42 Sodium Chloride 0.9% 1000 Ml IV 11/28/20 19:05 Infused .Q1H1M STA Infusion Sodium Chloride Confirm 11/28/20 18:23 Sodium Chloride 0.9% 1000 Ml Administered 11/28/20 18:24 Dose 1,000 mls @ ud .ROUTE .STK-MED ONE Ceftriaxone Sodium/Dextrose 1 g in 50 mls @ 100 mls/hr 11/28/20 18:57 11/28/20 19:42 Rocephin 1 Gm-D5w 50 Ml Bag IV 11/28/20 19:26 100 mls/hr STAT STA 100 mls/hr Administration Ceftriaxone Sodium/Dextrose Confirm 11/28/20 19:37 Rocephin 1 Gm-D5w 50 Ml Bag Administered 11/28/20 19:38 Dose 1 g in 50 mls @ ud IV .STK-MED ONE Ondansetron HCl 4 mg 11/28/20 18:05 11/28/20 18:26 Zofran 4 Mg/2 Ml Vial IV 11/28/20 18:06 4 mg STAT ONE Administration Ondansetron HCl Confirm 11/28/20 18:23 Zofran 4 Mg/2 Ml Vial Administered 11/28/20 18:24 Dose 4 mg .ROUTE .STK-MED ONE Potassium Chloride 10 meq 11/28/20 19:37 11/28/20 19:41 Klor Con 10 Meq PO 11/28/20 19:38 10 meq STAT ONE Administration Potassium Chloride Confirm 11/28/20 19:40 Klor Con 10 Meq Administered 11/28/20 19:41 Dose 10 meq PO .STK-MED ONE Lab/Rad Data: Laboratory Result Diagrams 11/28/20 18:28 11/28/20 18:28 Laboratory Results 11/28/20 11/28/20 11/28/20 Range/Units 18:28 18:28 18:20 WBC 1.0 L* (4.0-10.5) K/mm3 RBC 3.70 L (4.1-5.4) M/mm3 Hgb 11.7 L (12.0-16.0) gm/dl Hct 35.7 (35-47) % MCV 96.5 (78-100) fl MCH 31.6 (26-32) pg MCHC 32.8 (32-36) g/dl RDW 14.6 H (11.5-14.0) % Plt Count 164 (150-450) K/mm3 MPV 10.9 (7.5-11.0) fl Gran % 29.6 L (36.0-66.0) % Eos # (Auto) 0.02 (0-0.5) Absolute Lymphs (auto) 0.25 L (1.0-4.6) Absolute Monos (auto) 0.43 (0.0-1.3) Lymphocytes % 24.8 (24.0-44.0) % Monocytes % 42.6 H (0.0-12.0) % Eosinophils % 2.0 (0.00-5.0) % Basophils % 1.0 (0.0-0.4) % Absolute Granulocytes 0.30 L (1.4-6.9) Basophils # 0.01 (0-0.4) Sodium 138 (137-145) mmol/L Potassium 3.1 L (3.5-5.1) mmol/L Chloride 106 (98-107) mmol/L Carbon Dioxide 23 (22-30) mmol/L Anion Gap 11.5 (5-15) MEQ/L BUN 8 (7-17) mg/dL Creatinine 0.54 (0.52-1.04) mg/dL Estimated GFR > 60.0 ML/MIN Glucose 108 H (74-106) mg/dL Lactic Acid 1.2 (0.4-2.0) Calcium 9.5 (8.4-10.2) mg/dL Total Bilirubin 0.60 (0.2-1.3) mg/dL AST 21 (14-36) U/L ALT 10 (0-35) U/L Alkaline Phosphatase 65 (38-126) U/L Serum Total Protein 6.6 (6.3-8.2) g/dL Albumin 3.9 (3.5-5.0) g/dL Lipase 23 (23-300) U/L Urine Color (YELLOW) Urine Appearance (CLEAR) Urine pH (5-6) Ur Specific [place] (1.005-1.025) Urine Protein (Negative) Urine Ketones (NEGATIVE) Urine Blood (0-5) Van/ul Urine Nitrite (NEGATIVE) Urine Bilirubin (NEGATIVE) Urine Urobilinogen (0-1) mg/dL Ur Leukocyte Esterase (NEGATIVE) Urine WBC (Auto) (0-5) /HPF Urine RBC (Auto) (0-2) /HPF U Epithel Cells (Auto) (FEW) /HPF Urine Bacteria (Auto) (NEGATIVE) /HPF Urine Mucus (Auto) (NEGATIVE) /HPF Urine Culture Reflexed (NO) Urine Glucose (NEGATIVE) mg/dL 11/28/20 Range/Units 18:07 WBC (4.0-10.5) K/mm3 RBC (4.1-5.4) M/mm3 Hgb (12.0-16.0) gm/dl Hct (35-47) % MCV (78-100) fl MCH (26-32) pg MCHC (32-36) g/dl RDW (11.5-14.0) % Plt Count (150-450) K/mm3 MPV (7.5-11.0) fl Gran % (36.0-66.0) % Eos # (Auto) (0-0.5) Absolute Lymphs (auto) (1.0-4.6) Absolute Monos (auto) (0.0-1.3) Lymphocytes % (24.0-44.0) % Monocytes % (0.0-12.0) % Eosinophils % (0.00-5.0) % Basophils % (0.0-0.4) % Absolute Granulocytes (1.4-6.9) Basophils # (0-0.4) Sodium (137-145) mmol/L Potassium (3.5-5.1) mmol/L Chloride (98-107) mmol/L Carbon Dioxide (22-30) mmol/L Anion Gap (5-15) MEQ/L BUN (7-17) mg/dL Creatinine (0.52-1.04) mg/dL Estimated GFR ML/MIN Glucose (74-106) mg/dL Lactic Acid (0.4-2.0) Calcium (8.4-10.2) mg/dL Total Bilirubin (0.2-1.3) mg/dL AST (14-36) U/L ALT (0-35) U/L Alkaline Phosphatase (38-126) U/L Serum Total Protein (6.3-8.2) g/dL Albumin (3.5-5.0) g/dL Lipase (23-300) U/L Urine Color YELLOW (YELLOW) Urine Appearance CLOUDY (CLEAR) Urine pH 6.0 (5-6) Ur Specific [place] 1.036 (1.005-1.025) Urine Protein NEGATIVE (Negative) Urine Ketones NEGATIVE (NEGATIVE) Urine Blood SMALL (0-5) Van/ul Urine Nitrite NEGATIVE (NEGATIVE) Urine Bilirubin NEGATIVE (NEGATIVE) Urine Urobilinogen NEGATIVE (0-1) mg/dL Ur Leukocyte Esterase SMALL (NEGATIVE) Urine WBC (Auto) 16-25 (0-5) /HPF Urine RBC (Auto) 0-2 (0-2) /HPF U Epithel Cells (Auto) MODERATE (FEW) /HPF Urine Bacteria (Auto) RARE (NEGATIVE) /HPF Urine Mucus (Auto) SLIGHT (NEGATIVE) /HPF Urine Culture Reflexed YES (NO) Urine Glucose NEGATIVE (NEGATIVE) mg/dL - Progress Progress: improved, pain not gone completely Progress Note: 11/28/20 19:55 Patient states that her white count during the week was 2. CAT scan of the abdomen and pelvis without contrast shows no acute intra-abdominal or intrapelvic processes. CAT scan of the thoracic spine without contrast is negative for acute fracture, subluxation or spinal canal stenosis. 11/28/20 20:04 Medical decision making: This patient has a urinary tract infection. She has leukopenia which she is aware of. I spoke with her oncologist, Dr.S. Nina, and I made him aware of her current white blood cell count of 1. He stated that she could go home with a prescription for antibiotics and to follow-up at her next scheduled appointment. Patient is feeling much better now and wants to go home. 11/28/20 20:06 Counseled pt/family regarding: lab results, diagnosis, need for follow-up, rad results - Departure Departure Disposition: Home Clinical Impression: UTI (urinary tract infection), Back pain, Leukopenia Condition: Stable Critical Care Time: No Referrals: MATT GALLEGOS MD [Primary Care Provider] - Additional Instructions: Drink plenty of fluids. Take your medications as prescribed. Follow-up with your oncologist on Tuesday. Return to the emergency department if symptoms worsen. Prescriptions: Ondansetron ODT 4 MG [Zofran Odt 4 mg] 4 mg PO Q6H PRN PRN #10 tablet PRN Reason: Vomiting Ciprofloxacin [Cipro 500 MG] 500 mg PO BID #14 tablet
[2020-11-28] MEDS ORDERED: Sodium Chloride 0.9% 1000 ML 1,000 ML IV STA (18:05)
[2020-11-28] MEDS ORDERED: Zofran 4 MG/2 ML VIAL IV ONE (18:05)
[2020-11-28] MEDS ORDERED: Hydromorphone 1 mg/ml Injection IV ONE (18:05)
[2020-11-28] MEDS ORDERED: Sodium Chloride 0.9% 1000 ML 1,000 ML ONE (18:23)
[2020-11-28] MEDS ORDERED: Zofran 4 MG/2 ML VIAL ONE (18:23)
[2020-11-28] MEDS ORDERED: Hydromorphone 1 mg/ml Injection ONE (18:23)
[2020-11-28 18:39] LABS: Basophil (Absolute #) 0.01 (0-0.4); Eosinophil (Absolute #) 0.02 (0-0.5); Hematocrit 35.7 % (35-47); Hemoglobin 11.7 gm/dl (12.0-16.0); Lymphocyte (Absolute #) 0.25 (1.0-4.6); Lymphocytes % 24.8 % (24.0-44.0); Mean Cell Volume 96.5 fl (78-100); Mean Corpuscular Hemoglobin 31.6 pg (26-32); Mean Corpuscular Hgb Concent. 32.8 g/dl (32-36); Mean Platelet Volume 10.9 fl (7.5-11.0); Monocyte (Absolute #) 0.43 (0.0-1.3); Monocytes % 42.6 % (0.0-12.0); Neutrophil % 29.6 % (36.0-66.0); Platelet Count 164 K/mm3 (150-450); Red Cell Distribution Width 14.6 % (11.5-14.0)
[2020-11-28 18:41] LABS: ALBUMIN 3.9 g/dL (3.5-5.0); ALKALINE PHOSPHATASE 65 U/L (38-126); ANION GAP 11.5 MEQ/L (5-15); BLOOD UREA NITROGEN 8 mg/dL (7-17); CHLORIDE 106 mmol/L (98-107); Calcium 9.5 mg/dL (8.4-10.2); Carbon Dioxide 23 mmol/L (22-30); Creatinine 1 0.54 mg/dL (0.52-1.04); EST GLOMERULAR FILTRATION RATE > 60.0 ML/MIN; Glucose 108 mg/dL (74-106); LIPASE 23 U/L (23-300); Potassium 3.1 mmol/L (3.5-5.1); SGOT/AST 21 U/L (14-36); SGPT/ALT 10 U/L (0-35); SODIUM 138 mmol/L (137-145); Total Protein 6.6 g/dL (6.3-8.2)
[2020-11-28 18:47] LABS: Appearance CLOUDY (CLEAR); Bacteria RARE /HPF (NEGATIVE); Bilirubin NEGATIVE (NEGATIVE); Blood SMALL Ery/ul (0-5); Epithelial Cells MODERATE /HPF (FEW); Glucose NEGATIVE (NEGATIVE); Ketones NEGATIVE (NEGATIVE); Leukocyte Esterase SMALL (NEGATIVE); Mucus SLIGHT /HPF (NEGATIVE); Nitrite NEGATIVE (NEGATIVE); Protein,Urine Dip NEGATIVE (Negative); RBC 0-2 /HPF (0-2); Specific Gravity 1.036 (1.005-1.025); Urobilinogen NEGATIVE mg/dL (0-1)
[2020-11-28] MEDS ORDERED: ROCEPHIN 1 Gm-D5w 50 ml Bag** 1 G/50 ML IVPB IV STA (18:57)
[2020-11-28] MEDS ORDERED: Klor Con 10 MEQ PO ONE ×2 (19:37→19:40)
[2020-11-28] MEDS ORDERED: ROCEPHIN 1 Gm-D5w 50 ml Bag** 1 G/50 ML IVPB IV ONE (19:37)
--- NOTE | 2020-11-28 19:47 | XRAY ---
Indication: Pain. Multiple contiguous axial images obtained through the thoracic spine. Sagittal and coronal reformatted images obtained. Comparison: CT chest March 23, 2020. Osseous structures remain demineralized. Axial images negative for fracture, suspicious bony lesions, or spinal canal stenosis. There remains minimal multilevel anterior endplate spurring. Sagittal and coronal reformatted images again demonstrates normal thoracic alignment/kyphosis. No acute compression fracture or subluxation. Visualized noncontrasted soft tissues demonstrates small left base effusion with minimal dependent atelectasis. CT abdomen/pelvis reported separately. Impression: 1. Negative acute fracture, subluxation, or spinal canal stenosis. 2. Stable osteopenia and minimal multilevel degenerative changes. 3. Incidental small left lung base effusion with dependent atelectasis.
--- NOTE | 2020-11-28 19:50 | XRAY ---
Indication: Abdomen pain. Status post CT head with contrast exam performed at outside institution earlier in the day. Multiple contiguous images obtained through the abdomen and pelvis without contrast. Comparison: April 13, 2020. Lung bases demonstrates new small left base effusion with subsegmental atelectasis/scarring. Heart not enlarged. Noncontrasted stomach and bowel loops appear nonobstructed again with normal appendix. Small nonspecific cul-de-sac fluid similar to previous. No walled off fluid collection or free air. Residual contrast in both system without hydronephrosis or hydroureter. Remaining liver, gallbladder, pancreas, spleen, adrenal glands, kidneys, ureters, and bladder are unremarkable for noncontrast exam. Stable mild aortoiliac calcifications without AAA. Osseous structures intact again with osteopenia, prominent superior L3 Schmorl node, and remote L4 compression fracture. Impression: 1. Residual contrast in system limits evaluation for calcifications/calculi. 2. Again small nonspecific cul-de-sac fluid. 3. New small left lung base effusion with atelectasis/scarring.
[2020-11-28 21:20] VITALS: BP 90/50; PULSE 114; O2SAT 98
[2020-11-28 23:14] LABS: Eosinophil 2 % (0.00-3.0); Lymphocytes 23 % (24-44); Monocyte 34 % (0.0-12.0); Neutrophils 41 % (36.0-66.0); Total Cells Counted 100
[2020-11-28 23:18] LABS: Platelet Estimate NORMAL (NORMAL)
== END 2020-11-28 20:45 | disposition home or self-care (01) ==
LOC: ED 17:02
DX: N39.0 Urinary tract infection, site not specified (principal); M54.5 Low back pain; D72.819 Decreased white blood cell count, unspecified; R11.2 Nausea with vomiting, unspecified; R53.83 Other fatigue; Z79.891 Long term (current) use of opiate analgesic; C34.90 Malignant neoplasm of unspecified part of unspecified bronchus or lung; C79.31 Secondary malignant neoplasm of brain
CPT/HCPCS: 36000; 36415; 72128; 74176; 80053; 81001; 83605; 83690; 85025; 87077; 87086; 87186; 96360; 96365; 96374; 96375; 99284; J0696; J1170; J2405; A9270-GY

== ENCOUNTER 2020-12-22 14:02 | Emergency (ER) | payer MEDICAID ==
[2020-12-22 14:24] VITALS: O2SAT 98
[2020-12-22] MEDS ORDERED: MORPHINE SULFATE 10 MG/ML IM ONE (14:25)
--- NOTE | 2020-12-22 14:33 | ERPHSYRPT ---
- History of Present Illness Time Seen by Provider: 12/22/20 14:10 Source: patient Exam Limitations: no limitations Patient Subjective Stated Complaint: back pain/ bilateral leg pain Triage Nursing Assessment: pt to ED c/o back pain and R leg pain onset last night. denies injury or trauma. reports she has cancer to the brain and lungs and recieves chemo but states it has never made her feel bad in the past. last chemo treatment was 2 weeks ago. rates 8/10 pain now. reports taking norco at home but no relief. 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 Symptoms started last night. No trauma no fever. No saddle anesthesia. No change in bowel bladder function no recent back procedures. Pain is constant. Patient is a smoker but is trying to quit. Patient's last chemo session was 2 weeks ago. Patient has a prescription for [place]. She has been taking her [place] with no significant relief. No associated nausea or vomiting. No abdominal pain. No diarrhea. No rash. Symptoms are moderate in intensity. Movement reproduces pain. Pain improved with rest. Patient voices no other complaints or concerns at this time. Timing/Duration: yesterday Method of Injury: other (No known injuries.) Quality: aching Back Pain Location: lumbar spine Back Pain Radiation: lower legs Severity of Pain-Max: moderate Severity of Pain-Current: mild Modifying Factors: Improves With: immobilization, movement Associated Symptoms: denies symptoms, lower back pain, No fever, No urinary incontinence, No loss of bowel control, No nausea, No vomiting, No problems urinating, No dizziness, No tingling in legs/feet Previous symptoms: no prior history Allergies/Adverse Reactions: Sulfa (Sulfonamide Antibiotics) Allergy (Intermediate, Verified 12/22/20 14:17) Hives triamcinolone acetonide [From Kenalog] Allergy (Intermediate, Verified 12/22/20 14:17) Hives Home Medications: Hydrocodone/Acetaminophen [Hydrocodone-Acetamin 10-325 mg] 1 tab PO BID 10/21/19 [History] Albuterol 2 puff IH BID PRN PRN 03/23/20 [History] Ondansetron ODT 4 MG [Zofran Odt 4 mg] 4 mg PO Q6HPRN PRN 03/23/20 [History] Prochlorperazine Maleate 10 mg [Compazine 10 mg] 10 mg PO Q2H/PRN PRN 04/14/20 [History] Hx Tetanus, Diphtheria Vaccination/Date Given: No (unk) Hx Influenza Vaccination/Date Given: Yes Hx Pneumococcal Vaccination/Date Given: No Travel Risk - International Travel Have you traveled outside of the country in past 3 weeks: No - Coronavirus Screening Are you exhibiting any of the following symptoms?: No Close contact with a COVID-19 positive Pt in past 14-21 Days: No - Vaccine Status Have you recieved a Covid-19 vaccination: No - Review of Systems Constitutional: No Symptoms, No Fever, No Chills Eyes: No Symptoms Ears, Nose, & Throat: No Symptoms Respiratory: No Symptoms, No Cough, No Dyspnea Cardiac: No Symptoms, No Chest Pain, No Edema, No Syncope Abdominal/Gastrointestinal: No Symptoms, No Abdominal Pain, No Nausea, No Vomiting, No Diarrhea Genitourinary Symptoms: No Symptoms, No Dysuria Musculoskeletal: No Symptoms, No Back Pain, No Neck Pain Skin: No Symptoms, No Rash Neurological: No Symptoms, No Dizziness, No Focal Weakness, No Sensory Changes Psychological: No Symptoms Endocrine: No Symptoms Hematologic/Lymphatic: No Symptoms Immunological/Allergic: No Symptoms All Other Systems: Reviewed and Negative - Past Medical History Pertinent Past Medical History: Yes Neurological History: Migraines ENT History: No Pertinent History Cardiac History: No Pertinent History Respiratory History: Asthma, Lung Cancer Endocrine Medical History: No Pertinent History Musculoskeletal History: Arthritis GI Medical History: GERD History: No Pertinent History Psycho-Social History: Anxiety, Depression Female Reproductive Disorders: No Pertinent History Other Medical History: chronic back pain - Past Surgical History Past Surgical History: Yes Neuro Surgical History: No Pertinent History Cardiac: No Pertinent History Respiratory: No Pertinent History Gastrointestinal: No Pertinent History Genitourinary: No Pertinent History Musculoskeletal: No Pertinent History Female Surgical History: Tubal Ligation Other Surgical History: port in R upper chest for chemo - Social History Smoking Status: Current every day smoker How long have you smoked: 36 Exposure to second hand smoke: Yes Drug Use: none Patient Lives Alone: No Significant Family History: no pertinent family hx - Female History Hx Now: No - Nursing Vital Signs Nursing Vital Signs: Initial Vital Signs Temperature 98.7 F 12/22/20 14:06 Pulse Rate 141 H 12/22/20 14:06 Respiratory Rate 20 12/22/20 14:06 Blood Pressure 128/82 12/22/20 14:06 O2 Sat by Pulse Oximetry 98 12/22/20 14:06 Pain Scale Pain Intensity [] 8 Pain Intensity 10 - Physical Exam General Appearance: no apparent distress, alert Eye Exam: PERRL/EOMI, eyes nml inspection Ears, Nose, Throat Exam: normal ENT inspection, TMs normal, pharynx normal Neck Exam: normal inspection, non-tender, supple, full range of motion, No meningismus, No midline tenderness Respiratory Exam: normal breath sounds, lungs clear, airway intact, No respiratory distress Cardiovascular Exam: regular rate/rhythm, normal heart sounds, normal peripheral pulses Gastrointestinal Exam: soft, No tenderness, No mass Back Exam: normal inspection, decreased range of motion, other (Tenderness to palpation midline lumbar spine. Overlying soft tissue intact. No signs of trauma. Range of motion somewhat limited due to pain.) Extremity Exam: normal inspection, normal range of motion, No calf tenderness, No pedal edema Peripheral Pulses: dorsalis-pedis (R): 2+, dorsalis-pedis (L): 2+ Neurologic Exam: alert, 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, cooperative, dag sprayer II-XII nml as tested, normal mood/affect, sensation nml, No motor deficits Skin Exam: normal color, warm, dry, No rash Lymphatic Exam: adenopathy SpO2 Interpretation: normal SpO2: 98 O2 Delivery: Room Air - Course Nursing assessment & vital signs reviewed: Yes - CT Exams Lumbar Spine CT Interpretation: Tele-radiologist Report (Stable osteopenia, L2-L5 degenerative disc disease, L3 Schmorl node, remote L4 compression fracture, aortoiliac calcifications and nonobstructing left renal micro calculus. Remaining CT lumbar spine is again negative.) Ordered Tests: Active Orders 24 hr Category Date Time Status LUMBAR SPINE W/O [CT] Stat Exams 12/22/20 14:27 Completed Medication Summary Discontinued Medications Generic Name Dose Route Start Last Admin Trade Name Freq PRN Reason Stop Dose Admin Morphine Sulfate 6 mg 12/22/20 14:25 12/22/20 14:49 Morphine Sulfate 10 Mg/Ml Injection IM 12/22/20 14:26 6 mg STAT ONE Administration Morphine Sulfate Confirm 12/22/20 14:40 Morphine Sulfate 10 Mg/Ml Injection Administered 12/22/20 14:41 Dose 10 mg .ROUTE .STK-MED ONE Ondansetron HCl 4 mg 12/22/20 15:11 12/22/20 15:15 Zofran 4 Mg/Udtablet Orally Disintegrating PO 12/22/20 15:12 4 mg STAT ONE Administration Ondansetron HCl Confirm 12/22/20 15:13 Zofran 4 Mg/Udtablet Orally Disintegrating Administered 12/22/20 15:14 Dose 4 mg .ROUTE .STK-MED ONE - Progress Progress: improved Progress Note: Patient reassessed. Low back pain significantly improved. Patient states he is ready for discharge. CT scan lumbar spine negative for fracture dislocation. There is an old remote L4 compression fracture. Osteopenia. L2-L5 degenerative disc disease and nephrolithiasis of left kidney. No indication for further work-up or treatment at this time. Patient denies urinary symptomology. Will discharge home. Patient agrees to follow-up with her primary care doctor within 48 hours for reevaluation. Portions of this note were created with voice recognition technology. There may be grammatical, spelling, punctuation or sound alike errors 12/22/20 15:39 Counseled pt/family regarding: diagnosis, need for follow-up, rad results - Departure Departure Disposition: Home Clinical Impression: Sciatica, Osteopenia, Remote L4 compression fracture, Broadbase disc bulge, Aortoiliac calcifications, Nonobstructing left renal punctate calcu Condition: Stable Critical Care Time: No Referrals: MATT GALLEGOS MD [Primary Care Provider] -
[2020-12-22] MEDS ORDERED: MORPHINE SULFATE 10 MG/ML ONE (14:40)
[2020-12-22] MEDS ORDERED: ZOFRAN ODT 4 MG PO ONE (15:11)
[2020-12-22] MEDS ORDERED: ZOFRAN ODT 4 MG ONE (15:13)
--- NOTE | 2020-12-22 15:13 | XRAY ---
Indication: Low back pain. Pathologic fracture. Multiple contiguous axial images obtained through the lumbar spine. Sagittal and coronal reformatted images obtained. Comparison: November 28, 2020. Osseous structures again demonstrates osteopenia, prominent superior L3 Schmorl node, remote L4 compression fracture with approximate 25% height loss, and L2-L5 degenerative broad-based disc bulge. No new acute fracture, suspicious bony lesions, or spinal canal stenosis. Facets are symmetric. Sagittal and coronal reformatted images again demonstrates normal lumbar lordosis with minimal L2-L3/L4-L5 disc space narrowing. No acute compression fracture or subluxation. Visualized noncontrasted soft tissues again demonstrates mild scattered aortoiliac calcifications and nonobstructing left renal punctate calculus. Impression: 1. Stable osteopenia, L2-L5 degenerative disc disease, L3 Schmorl node, remote L4 compression fracture, aortoiliac calcifications, and nonobstructing left renal micro-calculus. 2. Remaining CT lumbar spine is again negative.
[2020-12-22 16:32] VITALS: BP 92/66; PULSE 131
== END 2020-12-22 16:48 | disposition home or self-care (01) ==
LOC: ED 14:02
DX: M54.30 Sciatica, unspecified side (principal); M85.80 Other specified disorders of bone density and structure, unspecified site; M48.56XA Collapsed vertebra, not elsewhere classified, lumbar region, initial encounter for fracture; M51.26 Other intervertebral disc displacement, lumbar region; I70.0 Atherosclerosis of aorta; N20.0 Calculus of kidney
CPT/HCPCS: 72131; 96372; 99284; J2270; Q0162

== ENCOUNTER 2021-01-01 15:33 | Emergency (ER) | payer MEDICAID ==
[2021-01-01] MEDS ORDERED: LEVOPHED 4 MG/4 ML 4,000 MCG in Dextrose 5%/Water IV Soln. 500 ML 500 ML IV ONE (15:34)
[2021-01-01] MEDS ORDERED: Adenocard IV 6 MG/2 ML IV ONE ×2 (15:42→15:46)
[2021-01-01] MEDS ORDERED: Sodium Chloride 0.9% 1000 ML 1,000 ML ONE (15:42)
[2021-01-01] MEDS ORDERED: Amidate 20 MG/10 ML IV ONE (15:53)
[2021-01-01 16:01] LABS: Hematocrit 34.2 % (35-47); Hemoglobin 11.2 gm/dl (12.0-16.0); Mean Cell Volume 95.8 fl (78-100); Mean Corpuscular Hemoglobin 31.4 pg (26-32); Mean Corpuscular Hgb Concent. 32.7 g/dl (32-36); Mean Platelet Volume 11.3 fl (7.5-11.0); Platelet Count 76 K/mm3 (150-450); Red Blood Count 3.57 M/mm3 (4.1-5.4); Red Cell Distribution Width 15.7 % (11.5-14.0); White Blood Count 2.7 K/mm3 (4.0-10.5)
[2021-01-01] MEDS ORDERED: Magnesium Sulfate 1 GM/2 ML VIAL ONE (16:03)
[2021-01-01] MEDS ORDERED: Sodium Chloride 0.9% 1000 ML 1,000 ML IV STA (16:05)
[2021-01-01] MEDS ORDERED: Cordarone 150 MG/3 ML Injection IV ONE (16:06)
[2021-01-01] MEDS ORDERED: NEXTERONE 360 MG/200 ML BAG 360 MG/200 ML PLAST..BAG IV ONE (16:14)
[2021-01-01] MEDS ORDERED: NEXTERONE 360 MG/200 ML BAG 360 MG/200 ML PLAST..BAG IV SCH (16:15)
[2021-01-01 16:16] LABS: Potassium 3.7 mmol/L (3.5-5.1)
[2021-01-01] MEDS ORDERED: Cordarone 150 MG/3 ML Injection ONE (16:16)
[2021-01-01] MEDS ORDERED: Zofran 4 MG/2 ML VIAL ONE (16:17)
[2021-01-01 16:21] LABS: SGPT/ALT 27 U/L (0-35)
[2021-01-01 16:26] LABS: ALBUMIN 3.8 g/dL (3.5-5.0); ALKALINE PHOSPHATASE 77 U/L (38-126); BLOOD UREA NITROGEN 19 mg/dL (7-17); CHLORIDE 97 mmol/L (98-107); Carbon Dioxide 21 mmol/L (22-30); Creatinine 1 1.04 mg/dL (0.52-1.04); EST GLOMERULAR FILTRATION RATE 58.7 ML/MIN; Glucose 117 mg/dL (74-106); NT PRO BNP 9000 pg/mL (0-900); SGOT/AST 20 U/L (14-36); SODIUM 131 mmol/L (137-145); TROPONIN < 0.012 ng/mL (0.000-0.034); Total Protein 6.3 g/dL (6.3-8.2)
[2021-01-01 16:28] LABS: ANION GAP 26.7 MEQ/L (5-15)
--- NOTE | 2021-01-01 16:35 | XRAY ---
Indication: Pneumonia. Comparison: April 13, 2020. Portable chest again hyperinflated with continued diminished left upper lobe peripheral mass like opacity. Remaining heart and lungs unremarkable with stable right Port-A-Cath. Bony thorax intact.
[2021-01-01] MEDS ORDERED: Heparin 5000 UNITS/0.5 ML (HIGH RISK MED) IV ONE (16:37)
[2021-01-01] MEDS ORDERED: Heparin 5000 UNITS/0.5 ML (HIGH RISK MED) ONE (16:40)
[2021-01-01] MEDS ORDERED: Zosyn INJ 4.5 GM in Sodium Chloride 100ML MINI-BAG PLUS 100 ML IV ONE (16:44)
[2021-01-01] MEDS ORDERED: VANCOMYCIN 1.5 GRAM/300 ML BAG 1.5 GM/300 ML PIGGYBACK IV SCH (16:45)
[2021-01-01 16:52] VITALS: PULSE 150; O2SAT 94
[2021-01-01] MEDS ORDERED: Sodium Chloride 100ML MINI-BAG PLUS 100 ML IV ONE (16:52)
[2021-01-01] MEDS ORDERED: Zosyn INJ IV ONE (16:52)
[2021-01-01 16:55] LABS: Appearance SLIGHTLY CLOUDY (CLEAR); Bacteria RARE /HPF (NEGATIVE); Bilirubin NEGATIVE (NEGATIVE); Blood NEGATIVE Ery/ul (0-5); Epithelial Cells RARE /HPF (FEW); Glucose NEGATIVE (NEGATIVE); Ketones NEGATIVE (NEGATIVE); Leukocyte Esterase NEGATIVE (NEGATIVE); Mucus SLIGHT /HPF (NEGATIVE); Nitrite NEGATIVE (NEGATIVE); Protein,Urine Dip 30 (Negative); RBC 0-2 /HPF (0-2); Specific Gravity 1.013 (1.005-1.025); Urobilinogen 2 mg/dL (0-1)
[2021-01-01] MEDS ORDERED: Heparin 25,000 units/D5W 250ML PREMIX 25,000 UNITS/250 ML BAG IV SCH (17:00)
--- NOTE | 2021-01-01 17:03 | ERPHSYRPT ---
- History of Present Illness Time Seen by Provider: 01/01/21 15:36 Source: patient Exam Limitations: no limitations Patient Subjective Stated Complaint: Patient c/o SOB and N/V that started 2 days ago. Triage Nursing Assessment: Patient yakelin back to ED in a wheelchair. Patient noted to be SOB (labored breaths using accessory muscles to breath and pausing to breath to answer questions). Patient alert and oriented and answering questions appropriately. Patient began to vomit during assessment. 02 sats 88% on room air so oxygen at 3L per N/C applied raising oxygen up to 93%. Physician History: Patient here for sudden onset shortness of breath. Patient does have a history of cancer. 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 States that she has not been taking her Xarelto for over a month. I was called into the room for patient apparently being in SVT. Initial cardiac EKG and rhythm on monitor did appear to be SVT. Therefore we started our assessment from there. Of note, patient was also found to have a fever later on in the course of the ED stay after he placed a temp sensing Reed. She no other "sick feelings". Timing/Duration: yesterday Severity: severe Modifying Factors: Improves With: other Associated Symptoms: shortness of breath Allergies/Adverse Reactions: Sulfa (Sulfonamide Antibiotics) Allergy (Intermediate, Verified 12/22/20 14:17) Hives triamcinolone acetonide [From Kenalog] Allergy (Intermediate, Verified 12/22/20 14:17) Hives Home Medications: Hydrocodone/Acetaminophen [Hydrocodone-Acetamin 10-325 mg] 1 tab PO BID 10/21/19 [History] Albuterol 2 puff IH BID PRN PRN 03/23/20 [History] Ondansetron ODT 4 MG [Zofran Odt 4 mg] 4 mg PO Q6HPRN PRN 03/23/20 [History] Prochlorperazine Maleate 10 mg [Compazine 10 mg] 10 mg PO Q2H/PRN PRN 04/14/20 [History] Hx Tetanus, Diphtheria Vaccination/Date Given: No (unk) Hx Influenza Vaccination/Date Given: Yes Hx Pneumococcal Vaccination/Date Given: No Immunizations Up to Date: Yes Travel Risk - International Travel Have you traveled outside of the country in past 3 weeks: No - Coronavirus Screening Are you exhibiting any of the following symptoms?: Yes Symptoms: Shortness of Breath, Vomiting/Diarrhea Close contact with a COVID-19 positive Pt in past 14-21 Days: No - Vaccine Status Have you recieved a Covid-19 vaccination: No - Review of Systems Constitutional: Fever Eyes: No Symptoms Ears, Nose, & Throat: No Symptoms Respiratory: Dyspnea, No Cough Cardiac: Palpitations, No Chest Pain, No Edema, No Syncope Abdominal/Gastrointestinal: No Abdominal Pain, No Nausea, No Vomiting, No Diarrhea Genitourinary Symptoms: No Dysuria Musculoskeletal: No Back Pain, No Neck Pain Skin: No Rash Neurological: No Dizziness, No Focal Weakness, No Sensory Changes Psychological: No Symptoms Endocrine: No Symptoms All Other Systems: Reviewed and Negative - Past Medical History Pertinent Past Medical History: Yes Neurological History: Migraines, Other ENT History: No Pertinent History Cardiac History: No Pertinent History Respiratory History: Asthma, Lung Cancer Endocrine Medical History: No Pertinent History Musculoskeletal History: Arthritis GI Medical History: GERD History: No Pertinent History Psycho-Social History: Anxiety, Depression Female Reproductive Disorders: No Pertinent History Other Medical History: chronic back pain - Past Surgical History Past Surgical History: Yes Neuro Surgical History: No Pertinent History Cardiac: No Pertinent History Respiratory: No Pertinent History Gastrointestinal: No Pertinent History Genitourinary: No Pertinent History Musculoskeletal: No Pertinent History Female Surgical History: Tubal Ligation Other Surgical History: port in R upper chest for chemo - Social History Smoking Status: Current every day smoker How long have you smoked: 36 Exposure to second hand smoke: Yes Drug Use: none Patient Lives Alone: No Significant Family History: no pertinent family hx - Female History Hx Now: No - Nursing Vital Signs Nursing Vital Signs: Initial Vital Signs Temperature 97.9 F 01/01/21 15:33 Pulse Rate 150 H 01/01/21 15:33 Respiratory Rate 30 H 01/01/21 15:33 O2 Sat by Pulse Oximetry 88 L 01/01/21 15:33 - Physical Exam SpO2 Interpretation: hypoxic SpO2: 94 Comments: 01/01/21 17:00 Physical Exam Vitals signsand nursing notereviewed. Constitutional: Appearance: She is cachectic, exam consistent with chemo patient HENT: Head: Normocephalicand atraumatic. Eyes: Conjunctiva/sclera: Conjunctivae normal. Neck: Musculoskeletal: Normal range of motion. Trachea: No tracheal deviation. Cardiovascular: Rate and Rhythm: SVT, hypotension Pulmonary: Effort: Tachypnea, port in place right upper chest Abdominal: Palpations: Abdomen is soft. Musculoskeletal: General: No deformity. Skin: General: Skin is warmand dry. Neurological: Mental Status: She is alertand oriented to person, place, and time. Psychiatric: Behavior: Behaviornormal. Procedures - Procedural Sedation Indication: cardioversion Preparation: constant attendance, director cardiac, oxygen, procedure explained, pulse oximeter, suction Sedation Parenteral: Etomidate Response during procedure: light sedation Post-Procedure Response: return to baseline mental status Progress: Unsuccessful cardioversion - Additional Procedures Additional Procedures: cardioversion/defib Progress: Cardioversion in the setting of SVT refractory to adenosine - Course Nursing assessment & vital signs reviewed: Yes EKG Interpreted by Me: Romfib, SVT Ordered Tests: Active Orders 24 hr Category Date Time Status Reed [Catheter-Florence Reed] STAT Care 01/01/21 16:33 Active CHEST 1 VIEW (PORTABLE) Stat Exams 01/01/21 16:26 Completed CBC W DIFF Stat Lab 01/01/21 15:57 Completed CMP Stat Lab 01/01/21 15:57 Completed CULTURE,URINE Stat Lab 01/01/21 16:34 Received D-DIMER QUANTITATIVE Stat Lab 01/01/21 15:57 Completed Manual Differential NC Stat Lab 01/01/21 15:57 Completed NT PRO BNP Stat Lab 01/01/21 15:57 Completed TROPONIN Stat Lab 01/01/21 15:57 Completed UA W/RFX UR CULTURE Stat Lab 01/01/21 16:34 Completed Medication Summary Generic Name Dose Route Start Last Admin Trade Name Freq PRN Reason Stop Dose Admin Amiodarone HCl/Dextrose 360 mg in 200 mls @ 33 mls/hr 01/01/21 16:15 Nexterone 360 Mg/200 Ml Bag IV 01/31/21 16:14 .Q6H4M DARVIN Protocol Heparin Sodium/Dextrose 25,000 units in 250 mls @ 10 mls/hr 01/01/21 17:00 Heparin 25,000 Units/D5w 250ml Premix IV 01/31/21 16:59 .Q24H DARVIN Vancomycin HCl 1.5 gm in 300 mls @ 150 mls/hr 01/01/21 16:45 Vancomycin 1.5 Gram/300 Ml Bag IV 01/31/21 16:44 Q24H DARVIN Discontinued Medications Generic Name Dose Route Start Last Admin Trade Name Lesli PRN Reason Stop Dose Admin Adenosine Confirm 01/01/21 15:42 Adenosine 6 Mg/2 Ml Vial Administered 01/01/21 15:43 Dose 6 mg IV .STK-MED ONE Adenosine Confirm 01/01/21 15:46 Adenosine 6 Mg/2 Ml Vial Administered 01/01/21 15:47 Dose 12 mg IV .STK-MED ONE Amiodarone HCl 150 mg 01/01/21 16:06 Amiodarone Hcl 150 Mg/3 Ml Vial IV 01/01/21 16:07 STAT ONE Amiodarone HCl Confirm 01/01/21 16:16 Amiodarone Hcl 150 Mg/3 Ml Vial Administered 01/01/21 16:17 Dose 150 mg .ROUTE .STK-MED ONE Heparin Sodium (Beef Lung) 5,000 unit 01/01/21 16:37 01/01/21 16:41 Heparin 5000 Unit/0.5 Ml Syringe IV 01/01/21 16:38 5,000 unit STAT ONE Administration Heparin Sodium (Beef Lung) Confirm 01/01/21 16:40 Heparin 5000 Unit/0.5 Ml Syringe Administered 01/01/21 16:41 Dose 5,000 unit .ROUTE .STK-MED ONE Sodium Chloride Confirm 01/01/21 15:42 Sodium Chloride 0.9% 1000 Ml Administered 01/01/21 15:43 Dose 1,000 mls @ ud .ROUTE .STK-MED ONE Sodium Chloride 1,000 mls @ 999 mls/hr 01/01/21 16:05 Sodium Chloride 0.9% 1000 Ml IV 01/01/21 17:05 .Q1H1M STA Piperacillin Sod/Tazobactam 100 mls @ 200 mls/hr 01/01/21 16:44 01/01/21 16:55 Sod 4.5 gm/ Sodium Chloride IV 01/01/21 17:13 200 mls/hr STAT ONE Administration Sodium Chloride Confirm 01/01/21 16:52 Sodium Chloride 100ml Mini-Bag Plus Administered 01/01/21 16:53 Dose 100 mls @ ud IV .STK-MED ONE Magnesium Sulfate Confirm 01/01/21 16:03 Magnesium Sulfate Injection Administered 01/01/21 16:04 Dose 2 gm .ROUTE .STK-MED ONE Ondansetron HCl Confirm 01/01/21 16:17 Ondansetron Hcl 4 Mg/2 Ml Vial Administered 01/01/21 16:18 Dose 4 mg .ROUTE .STK-MED ONE Piperacillin Sod/Tazobactam Sod Confirm 01/01/21 16:52 Piperacillin/Tazobactam Sodium 4.5 Gm Vial Administered 01/01/21 16:53 Dose 4.5 gm IV .STK-MED ONE Lab/Rad Data: Laboratory Result Diagrams 01/01/21 15:57 01/01/21 15:57 Laboratory Results 01/01/21 01/01/21 01/01/21 Range/Units 16:34 15:57 15:57 WBC (4.0-10.5) K/mm3 RBC (4.1-5.4) M/mm3 Hgb (12.0-16.0) gm/dl Hct (35-47) % MCV (78-100) fl MCH (26-32) pg MCHC (32-36) g/dl RDW (11.5-14.0) % Plt Count (150-450) K/mm3 MPV (7.5-11.0) fl Segmented Neutrophils (36.0-66.0) % Band Neutrophils (0.0-2.0) % Lymphocytes (Manual) (24-44) % Monocytes (Manual) (0.0-12.0) % Atypical Lymphocytes % Toxic Granulation Platelet Estimate (NORMAL) RBC Morphology Polychromasia Poikilocytosis Anisocytosis Microcytosis D-Dimer 2004 H* (215-500) ng/mL Sodium 131 L (137-145) mmol/L Potassium 3.7 (3.5-5.1) mmol/L Chloride 97 L (98-107) mmol/L Carbon Dioxide 21 L (22-30) mmol/L Anion Gap 26.7 H (5-15) MEQ/L BUN 19 H (7-17) mg/dL Creatinine 1.04 (0.52-1.04) mg/dL Estimated GFR 58.7 ML/MIN Glucose 117 H (74-106) mg/dL Calcium 9.0 (8.4-10.2) mg/dL Total Bilirubin 1.40 H (0.2-1.3) mg/dL AST 20 (14-36) U/L ALT 27 (0-35) U/L Alkaline Phosphatase 77 (38-126) U/L Troponin I < 0.012 (0.000-0.034) ng/mL NT-Pro-B Natriuret Pep 9000 H (0-900) pg/mL Serum Total Protein 6.3 (6.3-8.2) g/dL Albumin 3.8 (3.5-5.0) g/dL Urine Color CATHERINE (YELLOW) Urine Appearance SLIGHTLY CLOUDY (CLEAR) Urine pH 7.0 (5-6) Ur Specific [place] 1.013 (1.005-1.025) Urine Protein 30 (Negative) Urine Ketones NEGATIVE (NEGATIVE) Urine Blood NEGATIVE (0-5) Van/ul Urine Nitrite NEGATIVE (NEGATIVE) Urine Bilirubin NEGATIVE (NEGATIVE) Urine Urobilinogen 2 (0-1) mg/dL Ur Leukocyte Esterase NEGATIVE (NEGATIVE) Urine WBC (Auto) 6-10 (0-5) /HPF Urine RBC (Auto) 0-2 (0-2) /HPF U Hyaline Cast (Auto) 3-5 (0-2) /LPF U Epithel Cells (Auto) RARE (FEW) /HPF Urine Bacteria (Auto) RARE (NEGATIVE) /HPF Urine Mucus (Auto) SLIGHT (NEGATIVE) /HPF Urine Culture Reflexed ORDERED SEPARATELY (NO) Urine Glucose NEGATIVE (NEGATIVE) mg/dL 01/01/21 Range/Units 15:57 WBC 2.7 L (4.0-10.5) K/mm3 RBC 3.57 L (4.1-5.4) M/mm3 Hgb 11.2 L (12.0-16.0) gm/dl Hct 34.2 L (35-47) % MCV 95.8 (78-100) fl MCH 31.4 (26-32) pg MCHC 32.7 (32-36) g/dl RDW 15.7 H (11.5-14.0) % Plt Count 76 L (150-450) K/mm3 MPV 11.3 H (7.5-11.0) fl Segmented Neutrophils 70 H (36.0-66.0) % Band Neutrophils 4 H (0.0-2.0) % Lymphocytes (Manual) 17 L (24-44) % Monocytes (Manual) 8 (0.0-12.0) % Atypical Lymphocytes 1 % Toxic Granulation 2+ Platelet Estimate DECREASED (NORMAL) RBC Morphology ABNORMAL Polychromasia RARE Poikilocytosis 1+ Anisocytosis 1+ Microcytosis 1+ D-Dimer (215-500) ng/mL Sodium (137-145) mmol/L Potassium (3.5-5.1) mmol/L Chloride (98-107) mmol/L Carbon Dioxide (22-30) mmol/L Anion Gap (5-15) MEQ/L BUN (7-17) mg/dL Creatinine (0.52-1.04) mg/dL Estimated GFR ML/MIN Glucose (74-106) mg/dL Calcium (8.4-10.2) mg/dL Total Bilirubin (0.2-1.3) mg/dL AST (14-36) U/L ALT (0-35) U/L Alkaline Phosphatase (38-126) U/L Troponin I (0.000-0.034) ng/mL NT-Pro-B Natriuret Pep (0-900) pg/mL Serum Total Protein (6.3-8.2) g/dL Albumin (3.5-5.0) g/dL Urine Color (YELLOW) Urine Appearance (CLEAR) Urine pH (5-6) Ur Specific [place] (1.005-1.025) Urine Protein (Negative) Urine Ketones (NEGATIVE) Urine Blood (0-5) Van/ul Urine Nitrite (NEGATIVE) Urine Bilirubin (NEGATIVE) Urine Urobilinogen (0-1) mg/dL Ur Leukocyte Esterase (NEGATIVE) Urine WBC (Auto) (0-5) /HPF Urine RBC (Auto) (0-2) /HPF U Hyaline Cast (Auto) (0-2) /LPF U Epithel Cells (Auto) (FEW) /HPF Urine Bacteria (Auto) (NEGATIVE) /HPF Urine Mucus (Auto) (NEGATIVE) /HPF Urine Culture Reflexed (NO) Urine Glucose (NEGATIVE) mg/dL - Progress Progress: improved Progress Note: 01/01/21 17:03 ED critical care statement As staff physician, I have provided critical care. Time: 45 mins Criteria for critical illness: SVT, A. fib, severe sepsis Treatment and management provided include: Coordination of management with ETC care team, consultants, and inpatient care team. [id number] assessment of condition and response to therapy. Review and interpretation of emergent diagnostic testing. Medical chart review and completion. Direction and immediate supervision of the following therapy: Critical care was time spent personally by me on the following activities: blood draw for specimens, development of treatment plan with patient or surrogate, discussions with consultants, discussions with primary provider, interpretation of cardiac output measurements, evaluation of patient's response to treatment, examination of patient, obtaining history from patient or surrogate, ordering and performing treatments and interventions, ordering and review of laboratory studies, ordering and review of radiographic studies, pulse oximetry, re-evaluation of patient's condition and review of old charts. This time was independent of all procedures performed. Vickey Astorga ED course: Patient initially brought in as a shortness of breath with EKG demonstrating SVT on my read. We did try adenosine x2 on the patient. This was unsuccessful and patient's blood pressure continued to decline. Given that she was hypotensive with unsuccessful chemical cardioversion we did attempt electrical cardioversion. Patient was subsequently cardioverted at 100 J unsuccessfully. Then 150 J unsuccessfully. At this point time we did start looking for other causes of refractory atrial fibrillation. Patient then noted that she not been taking her blood thinner for greater than 1 month, Xarelto. Of note, patient is also a stage IV cancer patient. Thus making her more vulnerable to infection, pulmonary embolism, other severe disease course. Therefore we did start broad- spectrum antibiotics on the patient given her temperature of 101.7. We also attempted to slow down the patient's heart rate with 150s amiodarone and magnesium. This did help somewhat. Norepinephrine was started to help bring patient's blood pressure up as well. Patient was given appropriate fluid bolusing and consistent and constant bedside care. Given that we could not improve her symptoms here we did decide to transfer patient to [facility]. I discussed over the phone with on-call urgency room physician, Dr. Alexander. He did accept the patient for transfer. At this point time will transfer patient via ALS. - Departure Departure Disposition: Transfer Clinical Impression: Severe sepsis, SVT (supraventricular tachycardia), Atrial fibrillation with RVR, Inadequate anticoagulation Condition: Serious Critical Care Time: Yes Critical Care Time(excluding separately billable procedures): Critical 30-74 mins Referrals: MATT GALLEGOS MD [Primary Care Provider] -
[2021-01-01 17:12] LABS: ANISOCYTOSIS 1+; ATYPICAL LYMPHS 1 %; BAND 4 % (0.0-2.0); Lymphocytes 17 % (24-44); Monocyte 8 % (0.0-12.0); Neutrophils 70 % (36.0-66.0); Platelet Estimate DECREASED (NORMAL); Polychromasia RARE; Total Cells Counted 100
[2021-01-01 17:13] LABS: Microcytosis 1+; Poikilocytosis 1+; Toxic Granulation 2+
== END 2021-01-01 17:35 | disposition short-term general hospital (02) ==
LOC: ED 15:33
DX: A41.9 Sepsis, unspecified organism (principal); I47.1 Supraventricular tachycardia; I48.91 Unspecified atrial fibrillation
CPT/HCPCS: 36415; 51702; 71045; 80053; 81001; 83880; 84484; 85025; 85379; 87086; 96374; 96375; 99285; 99291; J0153; J0282; J1644; J2405; J2543; J3475